=== PATIENT | female | born 1940 | race Caucasian/White ===

== ENCOUNTER → 2018-05-14 09:30 | Outpatient (CLI) | payer MEDICARE, OTHER, SELFPAY | PROVIDERS: PCP Family Medicine; Visit Provider Orthopaedic Surgery | DX: Z47.1 Aftercare following joint replacement surgery (principal); Z96.643 Presence of artificial hip joint, bilateral | CPT/HCPCS: 99213 ==

== ENCOUNTER → 2018-12-02 08:53 | Outpatient (BNVA) | payer MEDICARE, OTHER, SELFPAY | PROVIDERS: PCP Family Medicine; Referring Provider Family Medicine; Visit Provider Orthopaedic Surgery | DX: M16.0 Bilateral primary osteoarthritis of hip (principal); Z96.643 Presence of artificial hip joint, bilateral | CPT/HCPCS: 99213 ==

== ENCOUNTER 2020-02-23 02:40 | Outpatient (CLI) | payer MEDICARE, OTHER, SELFPAY ==
[2020-02-23 12:08] LABS: HCT 35.1 % (36.0-46.0); HGB 11.5 g/dL (12.0-15.5); Mean Corp. HGB Concentration 32.8 g/dL (32.0-36.0); Mean Corpuscular Hemoglobin 30.1 pg (27.0-33.0); Mean Corpuscular Volume 91.9 fL (80-95); Platelet Count 205 x1000/uL (130-400); RBC 3.82 m/cumm (4.00-5.20); RBC Distribution Width 13.3 % (11.7-14.6); White Blood Cell Count 5.02 k/cumm (4.4-10.8)
[2020-02-23 12:59] LABS: ALT 31 U/L (14-59); AST 26 U/L (15-37); Albumin 4.1 g/dL (3.4-5.0); Alkaline Phosphatase 45 U/L (46-116); Anion Gap 6.8 mmol/L (3-11); BUN 21 mg/dL (7-18); Bilirubin, Total 0.5 mg/dL (0.2-1.0); CO2 29.2 mmol/L (21.0-32.0); CREATININE 0.79 mg/dL (0.55-1.02); Calcium 9.2 mg/dL (8.5-10.1); Calculated LDL 68 mg/dL (<100); Chloride 103 mmol/L (98-107); Cholesterol 153 mg/dL (<200); Glucose 97 mg/dL (74-106); HDL Cholesterol 72 mg/dL (40-60); Potassium 4.7 mmol/L (3.5-5.1); Sodium 139 mmol/L (136-145); Total Protein 6.7 g/dL (6.4-8.2); Triglyceride 65 mg/dL (<150)
[2020-02-23 13:33] LABS: C-Reactive Protein 0.06 mg/dL (0.0-0.3); Creatine Kinase 294 U/L (26-192)
== END 2020-02-23 03:00 ==
PROVIDERS: PCP Family Medicine; Visit Provider Family Medicine
DX: E78.5 Hyperlipidemia, unspecified (principal); I20.1 Angina pectoris with documented spasm; M33.90 Dermatopolymyositis, unspecified, organ involvement unspecified
CPT/HCPCS: 36415; 80053; 80061; 82550; 85027; 86140

== ENCOUNTER 2020-05-05 01:42 | Outpatient (CLI) | payer MEDICARE, OTHER, SELFPAY ==
[2020-05-05 13:05] LABS: Bilirubin Negative (Negative); Blood Negative (Negative); Clarity Clear (Clear); Glucose Negative (Negative); Ketones Negative (Negative); Leukocyte Esterase Negative (Negative); Nitrite Negative (Negative); Specific Gravity 1.015 (1.005-1.025); Urobilinogen 0.2 EU/dL (Up TO 0.2); pH 6.5 (5-8)
== END 2020-05-05 02:02 ==
PROVIDERS: PCP Family Medicine; Visit Provider Internal Medicine
DX: Z79.899 Other long term (current) drug therapy (principal)
CPT/HCPCS: 81003

== ENCOUNTER 2020-06-27 04:26 | Outpatient (CLI) | payer MEDICARE, OTHER, SELFPAY ==
[2020-06-27 11:18] LABS: Absolute Basophil Count 0.02 10^3/uL (0.0-0.2); Absolute Eosinophil Count 0.08 10^3/uL (0.0-0.7); Absolute Lymphocyte Count 1.29 10^3/uL (1.2-3.4); Absolute Monocyte Count 0.36 10^3/uL (0.1-0.8); Absolute Neutrophil Count 2.35 10^3/uL (1.2-6.7); Basophils % 0.5; HCT 32.6 % (36.0-46.0); HGB 10.7 g/dL (11.2-15.7); Lymphocytes % 31.5; MCH 30.5 pg (27.0-33.0); MCHC 32.8 % (32.0-36.0); MCV 92.9 fL (80-95); MPV 11.3 fL (8.0-11.0); Monocytes % 8.8; Neutrophils % 57.2; Nucleated RBC 0 %; Platelet Count 188 10^3/uL (130-400); RBC 3.51 10^6/uL (3.93-5.22); RDW 13.2 % (11.7-14.6); RDW-SD 44.8 fL
[2020-06-27 12:30] LABS: ESR 29 mm/hr (0-30)
[2020-06-27 12:36] LABS: ALT 24 U/L (14-59); AST 22 U/L (15-37); Albumin 4.1 g/dL (3.4-5.0); Alkaline Phosphatase 39 U/L (46-116); Anion Gap 7.9 mmol/L (3-11); BUN 21 mg/dL (7-18); Bilirubin, Total 0.5 mg/dL (0.2-1.0); C-Reactive Protein 0.05 mg/dL (0.0-0.3); CO2 27.1 mmol/L (21.0-32.0); CREATININE 0.85 mg/dL (0.55-1.02); Calcium 9.3 mg/dL (8.5-10.1); Chloride 101 mmol/L (98-107); Creatine Kinase 226 U/L (26-192); Glucose 88 mg/dL (74-106); Potassium 5.2 mmol/L (3.5-5.1); Sodium 136 mmol/L (136-145); Total Protein 6.6 g/dL (6.4-8.2)
== END 2020-06-27 04:46 ==
PROVIDERS: PCP Family Medicine; Visit Provider Internal Medicine
DX: M33.90 Dermatopolymyositis, unspecified, organ involvement unspecified (principal); Z79.899 Other long term (current) drug therapy
CPT/HCPCS: 36415; 80053; 82550; 85652; 85025; 86140

== ENCOUNTER 2020-10-06 02:40 | Outpatient (CLI) | payer MEDICARE, OTHER, SELFPAY ==
[2020-10-06 11:06] LABS: Abs Immature Grans 0.01 10^3/uL (0.0-0.06); Absolute Basophil Count 0.02 10^3/uL (0.0-0.2); Absolute Eosinophil Count 0.08 10^3/uL (0.0-0.7); Absolute Lymphocyte Count 1.31 10^3/uL (1.2-3.4); Absolute Monocyte Count 0.37 10^3/uL (0.1-0.8); Absolute Neutrophil Count 2.54 10^3/uL (1.2-6.7); Basophils % 0.5; Eosinophils % 1.8; HCT 34.3 % (36.0-46.0); HGB 11.1 g/dL (11.2-15.7); Immature Grans % 0.2; Lymphocytes % 30.3; MCH 30.1 pg (27.0-33.0); MCHC 32.4 % (32.0-36.0); MPV 10.9 fL (8.0-11.0); Monocytes % 8.5; Neutrophils % 58.7; Nucleated RBC 0 %; Platelet Count 211 10^3/uL (130-400); RBC 3.69 10^6/uL (3.93-5.22); RDW 12.6 % (11.7-14.6); RDW-SD 42.6 fL; WBC 4.33 10^3/uL (4.4-10.8)
[2020-10-06 12:11] LABS: ESR 36 mm/hr (0-30)
[2020-10-06 12:18] LABS: ALT 29 U/L (14-59); AST 21 U/L (15-37); Albumin 4.1 g/dL (3.4-5.0); Alkaline Phosphatase 45 U/L (46-116); Anion Gap 6.7 mmol/L (3-11); BUN 29 mg/dL (7-18); Bilirubin, Total 0.5 mg/dL (0.2-1.0); C-Reactive Protein < 0.05 mg/dL (0.0-0.3); CO2 27.3 mmol/L (21.0-32.0); CREATININE 0.91 mg/dL (0.55-1.02); Calcium 8.9 mg/dL (8.5-10.1); Chloride 104 mmol/L (98-107); Creatine Kinase 263 U/L (26-192); Estimated GFR 59.79 (mL/min/1.73m2); Glucose 91 mg/dL (74-106); Potassium 4.8 mmol/L (3.5-5.1); Sodium 138 mmol/L (136-145); Total Protein 6.9 g/dL (6.4-8.2)
== END 2020-10-06 03:00 ==
PROVIDERS: PCP Family Medicine; Visit Provider Internal Medicine
DX: M33.90 Dermatopolymyositis, unspecified, organ involvement unspecified (principal); Z79.899 Other long term (current) drug therapy
CPT/HCPCS: 36415; 80053; 82550; 85652; 85025; 86140

== ENCOUNTER 2021-02-20 03:33 | Outpatient (CLI) | payer MEDICARE, OTHER, SELFPAY ==
[2021-02-20 14:25] LABS: Abs Immature Grans 0.01 10^3/uL (0.0-0.06); Absolute Basophil Count 0.03 10^3/uL (0.0-0.2); Absolute Lymphocyte Count 1.43 10^3/uL (1.2-3.4); Absolute Monocyte Count 0.35 10^3/uL (0.1-0.8); Basophils % 0.6; HCT 33.1 % (36.0-46.0); Immature Grans % 0.2; Lymphocytes % 27.9; MCH 30.4 pg (27.0-33.0); MCHC 33.2 % (32.0-36.0); MCV 91.4 fL (80-95); MPV 10.9 fL (8.0-11.0); Monocytes % 6.8; Neutrophils % 62.5; Nucleated RBC 0 %; Platelet Count 187 10^3/uL (130-400); RBC 3.62 10^6/uL (3.93-5.22); RDW 12.9 % (11.7-14.6); RDW-SD 42.9 fL; WBC 5.12 10^3/uL (4.4-10.8)
[2021-02-20 14:26] LABS: ESR 5 mm/hr (0-30)
[2021-02-20 16:11] LABS: ALT 44 U/L (14-59); AST 31 U/L (15-37); Alkaline Phosphatase 42 U/L (46-116); Anion Gap 7.1 mmol/L (3-11); BUN 21 mg/dL (7-18); Bilirubin, Total 0.6 mg/dL (0.2-1.0); C-Reactive Protein 0.06 mg/dL (0.0-0.3); CO2 30.9 mmol/L (21.0-32.0); CREATININE 0.9 mg/dL (0.55-1.02); Calcium 9.5 mg/dL (8.5-10.1); Chloride 106 mmol/L (98-107); Creatine Kinase 330 U/L (26-192); Glucose 107 mg/dL (74-106); Potassium 4.5 mmol/L (3.5-5.1); Sodium 144 mmol/L (136-145); Total Protein 6.8 g/dL (6.4-8.2)
== END 2021-02-20 03:34 | disposition home or self-care (01) ==
PROVIDERS: PCP Family Medicine; Visit Provider Internal Medicine
DX: M33.90 Dermatopolymyositis, unspecified, organ involvement unspecified (principal); Z79.899 Other long term (current) drug therapy
CPT/HCPCS: 36415; 80053; 82550; 85652; 85025; 86140

== ENCOUNTER 2021-03-30 01:40 | Outpatient (CLI) | payer MEDICARE, OTHER, SELFPAY ==
[2021-03-30 10:36] LABS: Reticulocyte 1.4 % (0.5-2.4)
[2021-03-30 11:49] LABS: Iron 48 ug/dL (50-170); Total Iron Binding Capacity 312 ug/dL (250-450); Transferrin Sat 15 % (15-50)
[2021-03-30 12:15] LABS: Vitamin B12 408 pg/mL (193-986)
== END 2021-03-30 01:41 | disposition home or self-care (01) ==
LOC: LBO 01:40
PROVIDERS: PCP Family Medicine; Visit Provider Internal Medicine
DX: D50.8 Other iron deficiency anemias (principal); Z79.899 Other long term (current) drug therapy
CPT/HCPCS: 36415; 82607; 83540; 83550; 85045

== ENCOUNTER 2021-05-24 03:50 | Outpatient (CLI) | payer MEDICARE, OTHER, SELFPAY ==
[2021-05-24 10:42] LABS: Abs Immature Grans 0.01 10^3/uL (0.0-0.06); Absolute Basophil Count 0.02 10^3/uL (0.0-0.2); Absolute Eosinophil Count 0.11 10^3/uL (0.0-0.7); Absolute Lymphocyte Count 1.16 10^3/uL (1.2-3.4); Absolute Monocyte Count 0.43 10^3/uL (0.1-0.8); Absolute Neutrophil Count 2.82 10^3/uL (1.2-6.7); Basophils % 0.4; ESR 8 mm/hr (0-30); Eosinophils % 2.4; HCT 35.5 % (36.0-46.0); HGB 11.4 g/dL (11.2-15.7); Immature Grans % 0.2; Lymphocytes % 25.5; MCH 29.3 pg (27.0-33.0); MCHC 32.1 % (32.0-36.0); MCV 91.3 fL (80-95); MPV 10.5 fL (8.0-11.0); Monocytes % 9.5; Nucleated RBC 0 %; Platelet Count 213 10^3/uL (130-400); RBC 3.89 10^6/uL (3.93-5.22); RDW 13.1 % (11.7-14.6); RDW-SD 42.8 fL; WBC 4.55 10^3/uL (4.4-10.8)
[2021-05-24 11:59] LABS: ALT 31 U/L (14-59); AST 23 U/L (15-37); Albumin 4.1 g/dL (3.4-5.0); Alkaline Phosphatase 46 U/L (46-116); BUN 24 mg/dL (7-18); Bilirubin, Total 0.5 mg/dL (0.2-1.0); CREATININE 0.8 mg/dL (0.55-1.02); Calcium 9.5 mg/dL (8.5-10.1); Chloride 103 mmol/L (98-107); Creatine Kinase 226 U/L (26-192); Glucose 102 mg/dL (74-106); Potassium 4.6 mmol/L (3.5-5.1); Sodium 139 mmol/L (136-145); Total Protein 6.9 g/dL (6.4-8.2)
[2021-05-24 12:10] LABS: C-Reactive Protein < 0.05 mg/dL (0.0-0.3)
== END 2021-05-24 03:51 | disposition home or self-care (01) ==
LOC: LBO 03:50
PROVIDERS: PCP Family Medicine; Visit Provider Internal Medicine
DX: M33.90 Dermatopolymyositis, unspecified, organ involvement unspecified (principal); Z79.899 Other long term (current) drug therapy
CPT/HCPCS: 36415; 80053; 82550; 85652; 85025; 86140

== ENCOUNTER 2021-07-12 17:48 | Outpatient (REF) | payer MEDICARE, OTHER, SELFPAY ==
[2021-07-12 21:17] LABS: Anion Gap 5.4 mmol/L (3-11); BUN 18 mg/dL (7-18); CO2 30.6 mmol/L (21.0-32.0); CREATININE 0.8 mg/dL (0.55-1.02); Calcium 9.1 mg/dL (8.5-10.1); Chloride 106 mmol/L (98-107); Glucose 110 mg/dL (74-106); Potassium 4.4 mmol/L (3.5-5.1); Sodium 142 mmol/L (136-145)
== END 2021-07-12 17:49 | disposition home or self-care (01) ==
LOC: LBN 17:48
PROVIDERS: PCP Family Medicine; Visit Provider Physician Assistant
DX: I10 Essential (primary) hypertension (principal); M10.9 Gout, unspecified
CPT/HCPCS: 80048; 84550

== ENCOUNTER 2021-10-26 04:29 | Outpatient (CLI) | payer MEDICARE, SELFPAY ==
[2021-10-26 12:56] LABS: Abs Immature Grans 0.01 10^3/uL (0.0-0.06); Absolute Basophil Count 0.02 10^3/uL (0.0-0.2); Absolute Eosinophil Count 0.11 10^3/uL (0.0-0.7); Absolute Monocyte Count 0.45 10^3/uL (0.1-0.8); Absolute Neutrophil Count 3.28 10^3/uL (1.2-6.7); Basophils % 0.4; HCT 35.7 % (36.0-46.0); HGB 11.5 g/dL (11.2-15.7); Immature Grans % 0.2; Lymphocytes % 29.3; MCH 29.9 pg (27.0-33.0); MCHC 32.2 % (32.0-36.0); MPV 11.1 fL (8.0-11.0); Monocytes % 8.2; Neutrophils % 59.9; Nucleated RBC 0 %; Platelet Count 225 10^3/uL (130-400); RBC 3.84 10^6/uL (3.93-5.22); RDW 13.1 % (11.7-14.6); RDW-SD 44.2 fL; WBC 5.47 10^3/uL (4.4-10.8)
[2021-10-26 13:00] LABS: ESR 6 mm/hr (0-30)
[2021-10-26 13:51] LABS: ALT 29 U/L (14-59); AST 25 U/L (15-37); Albumin 4.2 g/dL (3.4-5.0); Alkaline Phosphatase 47 U/L (46-116); Anion Gap 7.3 mmol/L (3-11); BUN 22 mg/dL (7-18); Bilirubin, Total 0.4 mg/dL (0.2-1.0); C-Reactive Protein 0.06 mg/dL (0.0-0.3); CO2 29.7 mmol/L (21.0-32.0); CREATININE 0.7 mg/dL (0.55-1.02); Calcium 9.1 mg/dL (8.5-10.1); Chloride 104 mmol/L (98-107); Creatine Kinase 222 U/L (26-192); Glucose 104 mg/dL (74-106); Potassium 4.3 mmol/L (3.5-5.1); Sodium 141 mmol/L (136-145)
== END 2021-10-26 04:30 | disposition home or self-care (01) ==
PROVIDERS: PCP Family Medicine; Visit Provider Internal Medicine
DX: D50.8 Other iron deficiency anemias (principal); R06.09 Other forms of dyspnea; R06.02 Shortness of breath; Z92.241 Personal history of systemic steroid therapy; Z79.899 Other long term (current) drug therapy; I25.10 Atherosclerotic heart disease of native coronary artery without angina pectoris
CPT/HCPCS: 36415; 80053; 82550; 85652; 85025; 86140

== ENCOUNTER 2022-01-30 01:13 | Outpatient (CLI) | payer MEDICARE, SELFPAY ==
[2022-01-30 12:31] LABS: Absolute Basophil Count 0.03 10^3/uL (0.0-0.2); Absolute Eosinophil Count 0.08 10^3/uL (0.0-0.7); Absolute Lymphocyte Count 1.15 10^3/uL (1.2-3.4); Absolute Monocyte Count 0.42 10^3/uL (0.1-0.8); Absolute Neutrophil Count 2.63 10^3/uL (1.2-6.7); Basophils % 0.7; Eosinophils % 1.9; HCT 33.5 % (36.0-46.0); HGB 10.8 g/dL (11.2-15.7); Lymphocytes % 26.7; MCH 30.1 pg (27.0-33.0); MCHC 32.2 % (32.0-36.0); MCV 93 fL (80-95); MPV 11.9 fL (8.0-11.0); Monocytes % 9.7; Platelet Count 198 10^3/uL (130-400); RBC 3.59 10^6/uL (3.93-5.22); RDW-SD 43.6 fL; WBC 4.31 10^3/uL (4.4-10.8)
[2022-01-30 12:34] LABS: ESR 5 mm/hr (0-30)
[2022-01-30 12:51] LABS: ALT 27 U/L (14-59); AST 21 U/L (15-37); Albumin 4.2 g/dL (3.4-5.0); Alkaline Phosphatase 52 U/L (46-116); Anion Gap 7.1 mmol/L (3-11); BUN 24 mg/dL (7-18); Bilirubin, Total 0.5 mg/dL (0.2-1.0); CO2 29.9 mmol/L (21.0-32.0); CREATININE 0.8 mg/dL (0.55-1.02); Chloride 105 mmol/L (98-107); Glucose 111 mg/dL (74-106); Potassium 4.9 mmol/L (3.5-5.1); Sodium 142 mmol/L (136-145); Total Protein 6.7 g/dL (6.4-8.2)
[2022-01-30 12:56] LABS: C-Reactive Protein < 0.05 mg/dL (0.0-0.3)
== END 2022-01-30 01:14 | disposition home or self-care (01) ==
LOC: LOS 01:13
PROVIDERS: PCP Family Medicine; Visit Provider Internal Medicine
DX: M33.90 Dermatopolymyositis, unspecified, organ involvement unspecified (principal); Z79.899 Other long term (current) drug therapy
CPT/HCPCS: 36415; 80053; 85652; 85025; 86140

== ENCOUNTER 2022-06-07 01:13 | Outpatient (CLI) | payer MEDICARE, SELFPAY ==
--- OUTSIDE RECORDS SUMMARY | 2022-06-07 01:15 | XMS_ITS | Encounter Summary ---
:1940 Author Organization [facility] [place] [address] Care Team Providers Name Role Phone Mir Mancini MD Primary Care Provider [phone] Encounter Details Date Type Department Care Team Description 03/21/2021 [place] [facility] [place] [facility] High risk medication use; Nay KWONG (dyspnea on exertion) [place] [address] Social History Tobacco Use Types Packs/Day Years Used Date Never Smoker Smokeless Tobacco: Never Used Sex Assigned at Date Recorded Not on file documented as of this encounter Medications at Time of Discharge Medication Sig Dispensed Refills Start Date End Date omeprazole (PRILOSEC) 20 Take 1 capsule by 90 capsule 3 03/2020 mg Capsule, Delayed mouth daily. Release(E.C.) losartan (COZAAR) 100 mg daily. 0 01/22/[address] 1 tablet under 0 02/18/2019 (NITROSTAT) 0.4 mg the tongue if needed Tablet, Sublingual every 5 minutes for abel... (REFER TO PRESCRIPTION NOTES). metoprolol succinate 50 mg daily. 0 02/13/2019 (TOPROL-XL) 100 mg Tablet Sustained Release 24 hr aspirin 81 mg Tablet, Take 81 mg by mouth 0 Delayed Release (E.C.) daily. magnesium 250 mg Tablet Take by mouth daily. 0 cholecalciferol, Vitamin Take by mouth daily. 0 D3, 1,000 unit Capsule [place]-3 Fatty Take 2,000 mg by 0 Acids-Vitamin E (FISH mouth daily. OIL) 1,000 mg Cap amlodipine (NORVASC) 5 Take 1 tablet by 30 tablet 3 011 mg tablet mouth daily. pravastatin (PRAVACHOL) 40mg, PO, QPM 0 6 40 mg tablet Psyllium Seed-Sucrose 0 12/26/2004 (METAMUCIL) Powd metHOTREXate 2.5 mg Take 4 tablets by 48 tablet 1 1 07/31/2021 Tablet mouth once a week. folic acid (Folvite) 1 Take 1 tablet by 90 tablet 3 021 05/30/2021 mg Tablet mouth daily. hydrOXYchloroQUINE Take 1 tablet by 90 tablet 3 11/07/2020 10/19/2021 (Plaquenil) 200 mg mouth daily. TabletIndications: Indications: Dermatomyositis Dermatomyositis spironolactone 0 02/17/2020 08/20/2021 (Aldactone) 25 mg Tablet documented as of this encounter Plan of Treatment Upcoming Encounters Date Type Specialty Care Team Description 06/18/2022 Office Visit Rheumatology Cheryle Dai MD [facility] ER [address] RHEUMATOLOGY [place], [place] [address] (Wo rk) documented as of this encounter Procedures Procedure Name Priority Date/Time Associated Diagnosis Comme nts PULMONARY FUNCTION Routine 03/21/2021 11:55 AM Dermatomy ositis Results for this TEST EDT High risk medication procedu re are in use the results KWONG (dyspnea on section. exertion) documented in this encounter Results Pulmonary Function Testing (03/21/2021 11:55 AM EDT) P athologist Signature FVC Actual 1.45 L [facility] PFT Pre-BD FVC Pre-BD % of 70 % [facility] PFT Predicted FVC Predicted 2.07 L [facility]AS PFT FVC Pre-BD -1.67 [facility]AS PFT Z-Score FVC Lower 1.46 L [facility]AS PFT Limits of Normal FEV1 Actual 1.07 L [facility]AS PFT Pre-BD FEV1 Pre-BD % 67 % [facility]AS PFT of Predicted FEV1 Predicted 1.60 L [facility]AS PFT FEV1 Pre-BD -1.83 [facility]AS PFT Z-Score FEV1 Lower 1.12 L [facility]AS PFT Limits of Normal FEV1 / FVC 74 % [facility] PFT Actual Pre-BD FEV1/FVC Pre-BD -0.48 [facility]AS PFT Z-Score FEV1 / FVC LLN 63 % [facility]AS PFT [id number] Actual 0.68 L/s COMPAS PFT Pre-BD [id number] Pre-BD 49 % [facility]AS PFT % of Predicted [id number] 1.38 L/s COMPAS PFT Predicted [id number] Pre-BD -1.39 COMPAS PFT Z-Score DLCO Hb Actual 9.52 mL/min/mmHg [facility]AS PFT Pre-BD DLCO Hb Pre-BD 62 % [facility]AS PFT % of Predicted DLCO Hb Pre-BD -2.72 COMPAS PFT Z-Score DLCO Hb 15.29 mL/min/mmHg COMPAS PFT Predicted DLCO UNC ACT 9.52 mL/min/mmHg COMPAS PFT PRE-BD DLCO UNC PRE-BD 62 % [facility]AS PFT % of PRED DLCO UNC PRE-BD -2.72 % [facility]AS PFT Z-SCORE DLCO UNC 15.29 mL/min/mmHg COMPAS PFT Predicted DLCO/VA Actual 3.03 mL/min/mmHg COMPAS PFT Pre-BD /L DLCO/VA Pre-BD 70 % [facility]AS PFT % of Predicted DLCO/VA Pre-BD -2.04 COMPAS PFT Z-Score DLCO/VA 4.30 mL/min/mmHg COMPAS PFT Predicted /L FRC Pre-BD % of 84 % [facility]AS PFT Predicted FRC Pre-BD -0.74 % [facility]AS PFT Z-Score FRC Actual 2.01 L [facility]AS PFT Pre-BD FRC Predicted 2.38 L COMPAS PFT TLC Actual 3.67 L [facility]AS PFT Pre-BD TLC Pre-BD % of 93 % [facility]AS PFT Predicted TLC Pre-BD -0.47 [facility]AS PFT Z-Score TLC Predicted 3.95 L [facility]AS PFT RV Actual 1.94 L [facility]AS PFT Pre-BD RV Pre-BD % of 101 % [facility]AS PFT Predicted RV Pre-BD 0.03 [facility]AS PFT Z-Score RV Predicted 1.93 L [facility]AS PFT RVoTLC Actual 53 % [facility]AS PFT Pre-BD RVoTLC Pre-BD % 115 % [facility] PFT of Predicted RVoTLC Pre-BD 1.20 [facility]AS PFT Z-Score RVoTLC 46 % [facility] PFT Predicted VC Actual 1.73 L [facility] PFT Pre-BD VC Pre-BD % of 84 % [facility] PFT Predicted VC Pre-BD -0.89 [facility] PFT Z-Score VC Predicted 2.07 L [facility]AS PFT Specimen (Source) Anatomical Location Collection Method / Collectio n Time Received Time / Laterality Volume Narrative [facility]AS PFT - 03/21/2021 11:55 AM EDT FINDINGS: FEV1 and FVC are reduced, FEV1/VC is normal. The SVC is larger than the FVC and was used to calculate FEV1/VC. TLC is normal and RV/TLC is increased. Diffusion capacity not adjusted for hemoglobin is reduced. Rest ing oxygen saturation is normal.IMPRESSION: Spirometry suggests restriction. Lung volumes indic ate normal total lung capacity, but there is evidence of air trapping, which accounts for the reduced FVC. Mild reduction in diffusing capacity (DLCO > 60% and < lower limit of normal). Iso lated reduced DLCO suggests the possibility of disease of the pulmonary vasculature, early emph ysema, early interstitial disease, anemia, or carboxyhemoglobinemia/heavy tobacco smok ing. Procedure Note Unknown - 03/21/2021Formatting of this n ote might be different from the original. FINDINGS: FEV1 and FVC are reduced, FEV1 /VC is normal. The SVC is larger than the FVC and was used to calculate FEV1/VC. TLC is normal and RV/TLC is increased. Diffusion capacity not adjusted for hemoglobin is reduced. Rest ing oxygen saturation is normal.IMPRESSION: Spirometry suggests restriction. Lung volumes indic ate normal total lung capacity, but there is evidence of air trapping, which accounts for the reduced FVC. Mild reduction in diffusing capacity (DLCO > 60% and < lower limit of normal). Iso lated reduced DLCO suggests the possibility of disease of the pulmonary vasculature, early emph ysema, early interstitial disease, anemia, or carboxyhemoglobinemia/heavy tobacco smok ing. Cheryle Dai MD PFT ORDERABLES Performing Organization Address City/State/ZIP Code Phon e Number [facility] PFT documented in this encounter Visit Diagnoses Diagnosis Dermatomyositis High risk medication use Encounter for long-term (current) use of other medications KWONG (dyspnea on exertion) Other dyspnea and respiratory abnormalit y documented in this encounter Care Teams Boot Repairer Relationship Specialty Start Date End Date Mir Mancini MD PCP - General Family Medicine 05/25/[address] [place] [address] documented as of this encounter
--- OUTSIDE RECORDS SUMMARY | 2022-06-07 01:15 | XMS_ITS | Encounter Summary ---
:1940 Author Organization [facility] [place] [address] Care Team Providers Name Role Phone Mir Mancini MD Primary Care Provider [phone] Encounter Details Date Type Department Care Team Description 03/06/2021 [facility] [place] [address] Social History Tobacco Use Types Packs/Day Years Used Date Never Smoker Smokeless Tobacco: Never Used Sex Assigned at Date Recorded Not on file documented as of this encounter Plan of Treatment Upcoming Encounters Date Type Specialty Care Team Description 06/18/2022 Office Visit Rheumatology Cheryle Dai MD [facility] RHEUMATOLOGY [place], [place] [address] (Wo rk) documented as of this encounter Visit Diagnoses Not on filedocumented in this encounter Care Teams Seam Taper Machine Relationship Specialty Start Date End Date Mir Mancini MD PCP - General Family Medicine 05/25/[address] [place] [address] documented as of this encounter
--- OUTSIDE RECORDS SUMMARY | 2022-06-07 01:15 | XMS_ITS | Encounter Summary ---
:1940 [place] [address] Care Team Providers Name Role Phone Mir Mancini MD Primary Care Provider [phone] Encounter Details Date Type Department Care Team Description 08/21/2021 Telephone Therapeutic [place] [address] Social History Tobacco Use Types Packs/Day Years Used Date Never Smoker Smokeless Tobacco: Never Used Sex Assigned at Date Recorded Not on file documented as of this encounter Miscellaneous Notes Telephone Encounter - Kelsy Syed, DIRECTOR OF OCCUPATIONAL HEALTH - 08/21/2021 11:15 AM EST SCHEDULED CATHETERIZATION PROCEDURES Date: 08/21/2021 Scheduled With: Patient Referring MD: Dr. Giraldo Diagnosis: SOB Procedure Requested: LHC/RHC Scheduled Date: 09/04/2021 Performing MD: Dr. Nichols Arrival Time: 10a Procedure Time: 11a Blood Thinners? N If so, what? (If not specified, hold Coumadin/Warfarin 4 days, Eliquis and Xarelto 2 days) Diabetic? N If so, how is it managed? (Hold Metformin/Glucophage morning of) Iodine or IV Contrast Allergy? N Labs Completed? N In System or Scanned? If not, where/when will they be done? [facility] Orders Faxed? Yes [phone] Other Pertinent Information: Patient will be going next week for labs Patient is aware that our nursing staff from the [facility] will reach out to them the day prior to the procedure and review their eating and drinking instructions as well as their medication instructions. They have also been made aware that they will need a patient transportation driver for this and to arrive at location [address]. documented in this encounter Plan of Treatment Upcoming Encounters Date Type Specialty Care Team Description 06/18/2022 Office Visit Rheumatology Cheryle Dai MD [facility] DR RHEUMATOLOGY [place], [place] [address] (Wo rk) documented as of this encounter Visit Diagnoses Not on filedocumented in this encounter Care Teams Salesperson Furs Relationship Specialty Start Date End Date Mir Mancini MD PCP - General Family Medicine 05/25/[address] [place] [address] documented as of this encounter
--- OUTSIDE RECORDS SUMMARY | 2022-06-07 01:15 | XMS_ITS | Encounter Summary ---
:1940 Author Organization [facility] [place] [address] Care Team Providers Name Role Phone Mir Mancini MD Primary Care Provider [phone] Reason for Referral Diagnostic Test (Routine) - Closed Specialty Diagnoses / Procedures Referred By Contact Refer red To Contact Radiology Diagnoses Dermatomyositis High risk medication use KWONG (dyspnea on exertion) Cheryle Dai MD [facility] Rad Ct Scan Procedures CT Chest wo Contrast (Generic) [facility] [place] [address] [place] [address] Referral ID Status Reason Start Date Expiration Date Visits V isits Requested Authorized [id number] Closed Specialty 02/28/2021 08/30/2022 1 1 Service Requested Encounter Details Date Type Department Care Team Description 02/28/2021 Office Visit Rheumatology at [facility] Cheryle Dai Dermatomyositis; [facility] MD [place] High risk medication use; [facility] KWONG (dyspnea on exertion) [place] [address] CENTER [phone] RHEUMATOLOGY DEPT. [place], [place] [address] Social History Tobacco Use Types Packs/Day Years Used Date Never Smoker Smokeless Tobacco: Never Used Sex Assigned at Date Recorded Not on file documented as of this encounter Last Filed Vital Signs Vital Sign Reading Time Taken Comments Blood Pressure 156/43 02/28/2021 12:12 PM EDT Pulse 54 02/28/2021 12:12 PM EDT Temperature - - Respiratory Rate - - Oxygen Saturation 100% 02/28/2021 12:12 PM EDT Inhaled Oxygen Concentration - - Weight 83 kg (183 lb) 02/28/2021 12:12 PM EDT Height 149.9 cm (4' 11) 02/28/2021 12:12 PM EDT Body Mass Index 36.96 02/28/2021 12:12 PM EDT documented in this encounter Progress Notes Cheryle Dai MD - 02/28/2021 11:30 AM EDT Former pt of Shelly Alcaraz followed for dermatomyositis Cc: doing pretty well HPI: SOB with exertion, has not had PFTs and CT. Some muscle aches more in her deltoids B. She had to stop a medication as it was giving her some myalgias (sprionalactone). She feels her pressures are different. NO rashes. 7.5mg of MTX. Her CK was up to 330. (has not been over 300 before). Past: She is doing ok. She has occ pains in her arms and her hands have some arthritis but she thinks it is under control. She took her BP and it is 132/74 and HR 54. She is taking a new medication spironolactone. This is for BP. Normal CRP and Labs done 3 days ago reviewed. No dark urine or fevers. She has standing orders. She has a had time with exercising or moving--she cannot get her breath. No CP. No cough. Her CK is 226 (was 296 in the spring) She walks everyday for about a mile. Her main problem flares--feels worse in the biceps. Burning in the biceps. NO rash on her knuckles--some itching on the tops of her hands with itching and scaling. NO unusual weight loss. Her has dementia-requires 24 hour care at this point. Past: She has occ muscle pain in her deltoids. No weakness. She has arthritis in her hands. She has difficulty getting up off the ground while she is gardening. This has not gotten worse. She has started walking at least 30 minutes. She had to give up her wellness. She is walking a mile twice a day. She would like to get 10,000 in a day but gets 8-9. No dark urine. She has a little bit of gas in her bowels. She has a little soreness in her belly in the am. She gets some burning in her bladder or bowels in the am. No blood in her stools, no hematuria. She decreased HCQ to 200mg a day and feels this has improved the bowels somewhat. She takes methotrexate 7.5mg weekly without ulcers, has some dry mouth, no hair loss. No infections. No fevers. She has KWONG when she is walking on an incline. Rate related. No CP. Her BPhas improved after addition of a new medication. It feels like the medication has zapped her energy and this is hitting her in the middle of the day. She had a stress test several years ago. She sometimes has difficulty catching her breath. past: She has some quad pain and stiffness in the morning. She has no actual chest pain, but with a flight of stairs she is winded. She exercises 3 times a week at the gym. She notices that walking is harder than the treadmill. She has not spoken to her PCP abut cardiac testing. She gets some neck pressure. Her BP still demonstrates a wide pulse pressure. She is almost out of MTX. Overall things are about the same. No oral ulcers. Her hair has thinned. No infections. She has some burning in her lower intestines, she gets some gas worse with HCQ. She needs the omeprazole to reduce stomach pain, she tries to take it every other day. No urinary symptoms. She has an eye exam in July. Past: She has some morning stiffness. She gets some gnawing pain in big muscles in her arms that radiates into her traps and upper back. She was dx'd with dermatolyosiit rx'd with steroids around age 52. Over the last 2-3 years she has had an increase in pain. 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 Possibility that she had a rash--not clear. She did have a rash across her knuckles when she was first diagnosed. Her ESR was 44 in 04/2018, then to 08/2018 23, CK went [id number] over the same time (inverse relationship). She noted weakness when initially diagnose, less prominent during this increased episode. In addition to the HCQ and MTX she has been on prednisone as well over the past 2 years--but this was tapered off. No prednisone for months. She has not had a DEXA in sometime. Muscle strengthening at the gym. No SOB or fevers. She has KWONG with hills and stairs. She is concerned that this could be an anginalequivalent. She also has high BP. Does not get CP. She gets some tightness in her throat. She has not had an exercise stress test.She is not sure if her symptoms are cardiac or related to stomach problems. She wa sabe to work out at the gym without difficulty. No ulcers in her mouth. No Hair loss. No RAynaud's--they are sometimes white. NO dark urine. NO fevers or infections. She endorses carpal tunnel symptoms. 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 BP 156/43 Pulse 54 Ht 149.9 cm (4' 11) Wt 83 kg (183 lb) SpO2 100% BMI 36.96 kg/m?? She looks well, strength is normal. Lungs clear No rashes Labs/studies: Reviewed increased to 330 (higher than usual) Impression/Recommendations: Chronic disease with flare New onset KWONG High risk medication monitoring. This very pleasant 80-year-old woman from Dr. Shelly Alcaraz). 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 She also has a history of some modestly elevated CKs--180 at last check--up to 226 in 10/06/20 (down from 290). She is primarily treated with prednisone in the past, and is on hydroxychloroquine and methotrexate 7.5mg currently. She is tolerating both these medications without significant side effects and actually feels better since the addition of the hydroxychloroquine. She has more KWONG, will check PFTs and CT. To eval for institial lung disease. Will increase MTX to 10mg weekly. #Methotrexate 7.5 mg weekly--increase to 10mg weekly for increased CK #Folic acid 1 mg daily #Hydroxychloroquine-200mg daily for GI sx-annual eye exam #DEXA completed 06/2019--T-0.7 in normal range, vitamin D 2000 IU and calcium 1200mg through diet # continue with exercise, let me know if worsening weakness. documented in this encounter Plan of Treatment Upcoming Encounters Date Type Specialty Care Team Description 06/18/2022 Office Visit Rheumatology Cheryle Dai MD [facility] RHEUMATOLOGY DEP [place], [place] [address] (Wo rk) documented as of this encounter Results CT Chest wo Contrast (Generic) (03/21/2021 3:06 PM EDT) Anatomical Region Laterality Modality Chest Computed Tomography Specimen (Source) Anatomical Collection Method Collection Time Re ceived Time Location / / Volume Laterality 03/21/2021 3:22 PM EDT Impressions 03/21/2021 3:41 PM EDT 1. ??No CT evidence of interstitial lung disease. 2. ??No noncontrast CT evidence of acute inflammatory process within the thorax. 3. ??Moderate cardiomegaly. ??Asymmetric biatrial enlargement. 4. ??Hypoattenuation of the intraventric ular contents as compared to the myocardium, which can be seen in anemia. ??Correlation with hemoglobin and hematocrit is recommended. Thank you for letting us participate in the care of this patient. ??If you are a health care provider and have any questi ons regarding this report, please contact the number below. ??For patients who have questions please contact the health care taker that requested your imaging first. ? Electronically signed by: Maurice Harvey DO, [facility] ([phone]), at 03/21/2021 3:41 PM Narrative 03/21/2021 3:41 PM EDT EXAMINATION: CT CHEST WO CONTRAST (GENERIC) CLINICAL HISTORY: 80-year-old female wit h shortness of breath. TECHNIQUE: 3.75 mm thick axial contiguou s sections were obtained through the chest via helical acquisition without in travenous contrast administration. ??The department high resolution protocol was utilized with supine inspiratory and expiratory imaging as well as prone imag ing. ??Thin-section reconstructions as well as coronal and sagittal reformatted images were generated. COMPARISON: There is no similar prior ex amination provided for comparison. FINDINGS: Limitations: Lack of intravenous contras t limits evaluation of the visceral organs, mediastinum, and vascular struct ures. Assistant Health Educator Images: Noncontributory. Pulmonary parenchyma: There is no focal pulmonary nodule or opacity. ??There is no evidence of fibrotic lung disease. ?? There is no honeycombing, reticulation, subpleural pulmonary parenchymal scarrin g, bronchiectasis. ??There is no dominant cystic lung disease or pulmonary parench ymal nodular disease. Airways: The central airways are patent. ??There is no endobronchial lesion. Pleura: There is no pleural effusion or pneumothorax. Lymph nodes: There are no pathologically enlarged lymph nodes. Heart, pericardium, and great vessels: T here is moderate four-chamber cardiac enlargement. ??There is somewhat asymmet meghana enlargement of the bilateral atria. There is hypoattenuation of the intraven tricular contents as compared to the myocardium. ??There is confluent atheros clerotic calcification of the coronary arteries. ??There is physiologic pericar dial fluid. ??The unenhanced aorta is normal in course. ??There is mild athero sclerotic calcification of the aortic arch extending into the great vessels. ? ?Visualized aspects of the great vessels are normal in course. ??The unenhanced p ulmonary arteries are normal in course. Other mediastinal structures: The medias tinal fat is preserved. ??Limited evaluation of the esophagus is unremarka ble. Lower neck: Visualized structures within the inferior neck are unremarkable. Upper abdomen: There is been prior milly cystectomy with surgical clips within the gallbladder fossa. ??There is focal cortical thinning with calcification scarring within the lower pole of the le ft kidney, partially visualized. Body wall soft tissues: Normal Skeletal structures: There are no suspic ious osseous lesions. ??There are degenerative changes of the visualized s pine with endplate sclerosis and osteophyte formation. Procedure Note Maurice Harvey, DO - 03/21/2021Formatti ng of this note might be different from the original. EXAMINATION: CT CHEST WO CONTRAST (GENER IC) CLINICAL HISTORY: 80-year-old female wit h shortness of breath. TECHNIQUE: 3.75 mm thick axial contiguou s sections were obtained through the chest via helical acquisition without in travenous contrast administration. The department high resolution protocol was utilized with supine inspiratory and expiratory imaging as well as prone imag ing. Thin-section reconstructions as well as coronal and sagittal reformatted images were generated. COMPARISON: There is no similar prior ex amination provided for comparison. FINDINGS: Limitations: Lack of intravenous contras t limits evaluation of the visceral organs, mediastinum, and vascular struct ures. Assistant Health Educator Images: Noncontributory. Pulmonary parenchyma: There is no focal pulmonary nodule or opacity. There is no evidence of fibrotic lung disease. Th ere is no honeycombing, reticulation, subpleural pulmonary parenchymal scarrin g, bronchiectasis. There is no dominant cystic lung disease or pulmonary parench ymal nodular disease. Airways: The central airways are patent. There is no endobronchial lesion. Pleura: There is no pleural effusion or pneumothorax. Lymph nodes: There are no pathologically enlarged lymph nodes. Heart, pericardium, and great vessels: T here is moderate four-chamber cardiac enlargement. There is somewhat asymmetri c enlargement of the bilateral atria. There is hypoattenuation of the intraven tricular contents as compared to the myocardium. There is confluent atheroscl erotic calcification of the coronary arteries. There is physiologic pericardi al fluid. The unenhanced aorta is normal in course. There is mild atherosc lerotic calcification of the aortic arch extending into the great vessels. V isualized aspects of the great vessels are normal in course. The unenhanced pul monary arteries are normal in course. Other mediastinal structures: The medias tinal fat is preserved. Limited evaluation of the esophagus is unremarka ble. Lower neck: Visualized structures within the inferior neck are unremarkable. Upper abdomen: There is been prior milly cystectomy with surgical clips within the gallbladder fossa. There is focal co rtical thinning with calcification scarring within the lower pole of the le ft kidney, partially visualized. Body wall soft tissues: Normal Skeletal structures: There are no suspic ious osseous lesions. There are degenerative changes of the visualized s pine with endplate sclerosis and osteophyte formation. IMPRESSION 1. No CT evidence of interstitial lung d isease. 2. No noncontrast CT evidence of acute i nflammatory process within the thorax. 3. Moderate cardiomegaly. Asymmetric jeremiah trial enlargement. 4. Hypoattenuation of the intraventricul ar contents as compared to the myocardium, which can be seen in anemia. Correlation with hemoglobin and hematocrit is recommended. Thank you for letting us participate in the care of this patient. If you are a health care provider and have any questi ons regarding this report, please contact the number below. For patients w ho have questions please contact the health care taker that requested your imaging first. Electronically signed by: Maurice Harvey DO, [facility] ([phone]), at 03/21/2021 3:41 PM Cheryle Dai MD IMG CT ORDERABLES Pulmonary Function Testing (03/21/2021 11:55 AM EDT) [...] / FVC LLN 63 % COMPAS PFT [id number] Actual 0.68 L/s COMPAS PFT Pre-BD [id number] Pre-BD 49 % COMPAS PFT % of Predicted [id number] 1.38 L/s COMPAS PFT Predicted [id number] Pre-BD -1.39 COMPAS PFT Z-Score DLCO Hb [...] exertion) Other dyspnea and respiratory abnormalit y Dermatomyositis High risk medication use Encounter for long-term (current) use of other medications KWONG (dyspnea on exertion) Other dyspnea and respiratory abnormalit y Dermatomyositis High risk medication use Encounter for long-term (current) use of other medications KWONG (dyspnea on exertion) Other dyspnea and respiratory abnormalit y documented in this encounter Care Teams Dairy Products Maker Relationship Specialty Start Date End Date Mir Mancini MD PCP - General Family Medicine 05/25/[address] [place] [address] documented as of this encounter
--- OUTSIDE RECORDS SUMMARY | 2022-06-07 01:15 | XMS_ITS | Encounter Summary ---
:1940 Author Organization [facility] [place] [address] Care Team Providers Name Role Phone Mir Mancini MD Primary Care Provider [phone] Reason for Referral Diagnostic Test (Routine) - Closed Specialty Diagnoses / Procedures Referred By Contact Refer red To Contact Cardiology Diagnoses Other iron deficiency anemia SOB (shortness of breath) Cheryle Dai MD [facility] Non-Inv Card Lab Procedures Echocardiogram Transthoracic([facility]) [facility] [place] [address] [place] [address] Referral ID Status Reason Start Date Expiration Date Visits V isits Requested Authorized [id number] Closed Specialty 03/22/2021 03/22/2022 1 1 Service Requested Reason for Visit Diagnostic Test (Routine) - Closed Specialty Diagnoses / Procedures Referred By Contact Refer red To Contact Cardiology Diagnoses Other iron deficiency anemia SOB (shortness of breath) Cheryle Dai MD [facility] Non-Inv Card Lab Procedures Echocardiogram Transthoracic([facility]) [facility] [place] [address] [place] [address] Referral ID Status Reason Start Date Expiration Date Visits V isits Requested Authorized [id number] Closed Specialty 03/22/2021 03/22/2022 1 1 Service Requested Encounter Details Date Type Department Care Team Description 07/11/2021 Hospital Encounter Non-Invasive Cheryle Dai Other iron deficiency anemia; Cardiology Lab Ashley Hubbard MD SOB (shortness of breath) [facility] [address] DEPT. [place], [place] [address] [phone] Social History Tobacco Use Types Packs/Day Years Used Date Never Smoker Smokeless Tobacco: Never Used Sex Assigned at Date Recorded Not on file documented as of this encounter Medications at Time of Discharge Medication Sig Dispensed Refills Start Date End Date furosemide (Lasix) 20 mg Take 20 mg by mouth 0 Tablet daily. omeprazole (PRILOSEC) 20 Take 1 capsule by [...] mouth daily. 0 D3, 1,000 unit Capsule [place]-3 Fatty Take 2,000 mg by 0 Acids-Vitamin E (FISH mouth daily. OIL) 1,000 mg Cap amlodipine (NORVASC) 5 Take 1 tablet by 30 tablet 3 08/12/ 011 mg tablet mouth daily. pravastatin (PRAVACHOL) 40mg, PO, QPM 0 6 40 mg tablet Psyllium Seed-Sucrose 0 12/26/2004 (METAMUCIL) Powd folic acid (Folvite) 1 Take 1 tablet by 90 tablet 3 021 05/09/2022 mg Tablet mouth daily. metHOTREXate 2.5 mg Take 4 tablets by 48 tablet 1 1 07/31/2021 Tablet mouth once a week. hydrOXYchloroQUINE Take 1 tablet by 90 tablet 3 11/07/2020 10/19/2021 (Plaquenil) 200 mg mouth daily. TabletIndications: Indications: Dermatomyositis Dermatomyositis spironolactone 0 02/17/2020 08/20/2021 (Aldactone) 25 mg Tablet documented as of this encounter Plan of Treatment Upcoming Encounters Date Type Specialty Care Team Description 06/18/2022 Office Visit Rheumatology Cheyrle Dai MD [facility] [address] RHEUMATOLOGY [facility], [place] [address] (Wo rk) documented as of this encounter Procedures Procedure Name Priority Date/Time Associated Comments Diagnosis ECHOCARDIOGRAM COMPLETE Routine 07/11/2021 11:17 Other iron Results for this W CONTRAST AM EDT deficiency anemi a procedure are in SOB (shortness of the result s breath) section. documented in this encounter Results ECHOCARDIOGRAM COMPLETE W CONTRAST (07/11/2021 11:17 AM EDT) athologist Signature EF 73 [facility] Anatomical Region Laterality Modality Other Specimen (Source) Anatomical Location Collection Method / Collectio n Time Received Time / Laterality Volume 07/11/2021 Narrative 07/11/2021 11:27 AM EDT Procedure: ?Transthoracic Echocardiogram Patient: ?ATIYA GUERRIER ?? (Age): 1940(81y) Med Rec#: ? [id number] ?Sex: ?F ? Site Loc: ? [facility] ?Ht / Wt: ??149.86(cm)/82.1 Pt. Loc: ?Echo Lab ?BSA: ?1.77 Study Date: ?? 07/11/2021 ?Pt. Type: Outpatient Tape: ? Referring: [email or web address] Reading: Maurice Giraldo ([id number]) Fishing Game Warden: Deanna Bolton Diagnosis: *Other iron deficiency anemias (D50.8) *Shortness of breath (R06.02) Rhythm: ? Sinus BP: ? 182/61 SUMMARY: 1. Technically limited 2. The left ventricular chamber size is normal. Global left ventricular systolic function appears hyperdynamic. ??Ejection fraction is estimated to be 73%. There are no left ventricular segmental wall motion abnormalities. 3. The right ventricle is normal in size . Right ventricular global systolic function is normal. The estimat ed pulmonary artery systolic pressure is 40 mmHg. 4. The mitral valve leaflets appear norm al. There is no evidence of mitral stenosis. There is mild (1+/4+) m itral regurgitation present. 5. See remainder of report for additiona l findings. There is no prior study available. Findings ? : Study Quality: ? Technically limited Left Ventricle: ? The left ventricul ar chamber size is normal. ?Global left ventricular systolic f unction appears hyperdynamic. Ejection fraction is estimated to be 73% . ?There are no left ventricular segm ental wall motion abnormalities. ?Doppler assessment is consistent w ith normal left sided filling pressure. Left Atrium: ? The left atrium is no rmal in size. ?No atrial septal defect is visuali zed. Right Ventricle: ? The right ventric le is normal in size. ?Right ventricular global systolic function is normal. ?The estimated pulmonary artery sys tolic pressure is 40 mmHg. Right Atrium: ? The right atrium is normal in size. Aortic Valve: ? The aortic valve is tricuspid. ?The aortic valve leaflets are mild ly thickened. ?There is no evidence of aortic wade ve stenosis. ?There is no evidence of aortic reg urgitation. Mitral Valve: ? The mitral valve torres flets appear normal. ?There is no evidence of mitral jennifer nosis. ?There is mild (1+/4+) mitral regur gitation present. Tricuspid Valve: ? The tricuspid wade ve leaflets are morphologically normal. ?There is mild (1+/4+) tricuspid re gurgitation present. Pulmonic Valve: ? The pulmonic valve is not well visualized. Pericardium: ? There is no pericardi al effusion. Aorta: ? The aortic root is normal i n size. ?The ascending aorta was not well v isualized. Pulmonary Artery: ? The main pulmona ry artery is not well visualized. Venous: ? The inferior vena cava seb ears normal in size. ?There is a greater than 50% respir atory change in the inferior vena cava dimension. Misc: ? See remainder of report for additional findings. ?Two-dimensional echo, spectral Dop pler and color Doppler performed. ?Optison contrast (one 3 ml vial) w as used to enhance endocardial definition. Excess contrast was discarde d. Chambers 2D ?Value ?Units (Range) ? Ao root diameter (2D3.2 ?cm (2.1 - 3.6) ? Volumes/Mass ?Value ?Units (Range) ? LA Area 4 CH ?23 ? cm2 (<21) ? RA AREA 4CH ? 16 ? cm2 ? LA ESV BP (MOD) inde34.4 ? ml/m2 ? LV ESV SP 4CH (MOD) 28.5 ? ml ? LV ESV SP 2CH (MOD) 19.9 ? ml ? LV EDV BP ? 88.8 ? ml ? LV ESV BP ? 24 ? ml ? LV EDV BP index ? 50.24 ?ml/m2 ? LV ESV BP index ? 13.58 ?ml/m2 ? BP EF (MOD) ? 72.97 ?% ? Diastolic/Systolic Function ?Value ?Units (Range) ? MV E-wave Vmax ?0.84 ? m/sec ? MV deceleration [id number] ?msec ? MV A-wave Vmax ?0.46 ? m/sec ? MV E:A ratio ?1.83 ? ratio ? LV septal e' Vmax ?? 0.07 ? m/sec ? LV lateral e' Vmax ??0.07 ? m/sec ? LV average e' Vmax ??0.07 ? m/sec ? LV E:e' septal ratio12 ? ratio ? LV E:e' lateral rati12 ? ratio ? LV average E:e' rati12 ? ratio ? Aortic Valve ?Value ?Units (Range) ? LVOT diameter ? 2 ?cm ? LVOT Vmax ? 0.97 ? m/sec ? LVOT VTI ?23.6 ? cm ? LVOT peak gradient ??4 ?mmHg ? LVOT mean gradient ??2 ?mmHg ? SV LVOT ? 74.1 ? ml ? SV LVOT Index ? 42 ? ml/m2 ? Mitral Valve ?Value ?Units (Range) ? MV PHT ?75 ? msec ? MVA (PHT) ? 2.93 ? cm2 ? Tricuspid Valve ?Value ?Units (Range) ? TR Vmax ? 3.04 ? m/sec ? TR peak gradient ?36.97 ?mmHg ? RAP ? 3 ?mmHg ? RVSP ?40 ? mmHg ? This report has been electronically sign ed by: _ Maurice Giraldo MD ? 07/11/2021 11: 26:56 Images reviewed and interpretation verif ied [facility] Cardiac Ultrasound Laboratory Procedure Note Maurice Giraldo MD - 07/11/2021Formatti ng of this note might be different from the original. Procedure: Transthoracic Echocardiogram Patient: ATIYA CHAU(Age): 0 1940(81y) Med Rec#: [id number] Sex: F Site Loc: [facility] [place] [facility] Ht / Wt: 149.86(cm)/82.1 Pt. Loc: Echo Lab BSA: 1.77 Study Date: 07/11/2021 Pt. Type: Outpati ent Tape: Referring: BETY Reading: Maurice Giraldo ([id number]) Fishing Game Warden: Deanna Bolton Diagnosis: *Other iron deficiency anemias (D50.8) *Shortness of breath (R06.02) Rhythm: Sinus BP: 182/61 SUMMARY: 1. Technically limited 2. The left ventricular chamber size is normal. Global left ventricular systolic function appears hyperdynamic. Ejection fraction is estimated to be 73%. There are no left ventricular segmental wall motion abnormalities. 3. The right ventricle is normal in size . Right ventricular global systolic function is normal. The estimat ed pulmonary artery systolic pressure is 40 mmHg. 4. The mitral valve leaflets appear norm al. There is no evidence of mitral stenosis. There is mild (1+/4+) m itral regurgitation present. 5. See remainder of report for additiona l findings. There is no prior study available. Findings : Study Quality: Technically limited Left Ventricle: The left ventricular enmanuel mber size is normal. Global left ventricular systolic functi on appears hyperdynamic. Ejection fraction is estimated to be 73% . There are no left ventricular segmental wall motion abnormalities. Doppler assessment is consistent with n ormal left sided filling pressure. Left Atrium: The left atrium is normal i n size. No atrial septal defect is visualized. Right Ventricle: The right ventricle is normal in size. Right ventricular global systolic funct ion is normal. The estimated pulmonary artery systolic pressure is 40 mmHg. Right Atrium: The right atrium is normal in size. Aortic Valve: The aortic valve is tricus pid. The aortic valve leaflets are mildly th ickened. There is no evidence of aortic valve st enosis. There is no evidence of aortic regurgit ation. Mitral Valve: The mitral valve leaflets appear normal. There is no evidence of mitral stenosis . There is mild (1+/4+) mitral regurgitat ion present. Tricuspid Valve: The tricuspid valve torres flets are morphologically normal. There is mild (1+/4+) tricuspid regurgi tation present. Pulmonic Valve: The pulmonic valve is no t well visualized. Pericardium: There is no pericardial eff usion. Aorta: The aortic root is normal in size . The ascending aorta was not well visual ized. Pulmonary Artery: The main pulmonary art isaac is not well visualized. Venous: The inferior vena cava appears n ormal in size. There is a greater than 50% respiratory change in the inferior vena cava dimension. Misc: See remainder of report for additi onal findings. Two-dimensional echo, spectral Doppler and color Doppler performed. Optison contrast (one 3 ml vial) was us ed to enhance endocardial definition. Excess contrast was discarde d. Chambers 2D Value Units (Range) Ao root diameter (2D3.2 cm (2.1 - 3.6) Volumes/Mass Value Units (Range) LA Area 4 CH 23 cm2 (<21) RA AREA 4CH 16 cm2 LA ESV BP (MOD) inde34.4 ml/m2 LV ESV SP 4CH (MOD) 28.5 ml LV ESV SP 2CH (MOD) 19.9 ml LV EDV BP 88.8 ml LV ESV BP 24 ml LV EDV BP index 50.24 ml/m2 LV ESV BP index 13.58 ml/m2 BP EF (MOD) 72.97 % Diastolic/Systolic Function Value Units (Range) MV E-wave Vmax 0.84 m/sec MV deceleration [id number] msec MV A-wave Vmax 0.46 m/sec MV E:A ratio 1.83 ratio LV septal e' Vmax 0.07 m/sec LV lateral e' Vmax 0.07 m/sec LV average e' Vmax 0.07 m/sec LV E:e' septal ratio12 ratio LV E:e' lateral rati12 ratio LV average E:e' rati12 ratio Aortic Valve Value Units (Range) LVOT diameter 2 cm LVOT Vmax 0.97 m/sec LVOT VTI 23.6 cm LVOT peak gradient 4 mmHg LVOT mean gradient 2 mmHg SV LVOT 74.1 ml SV LVOT Index 42 ml/m2 Mitral Valve Value Units (Range) MV PHT 75 msec MVA (PHT) 2.93 cm2 Tricuspid Valve Value Units (Range) TR Vmax 3.04 m/sec TR peak gradient 36.97 mmHg RAP 3 mmHg RVSP 40 mmHg This report has been electronically sign ed by: _ Maurice Giraldo MD 07/11/2021 11:26:56 Images reviewed and interpretation kera collins [facility] Cardiac Ultrasound Laboratory Cheryle Dai MD ECHO ORDERABLES documented in this encounter Visit Diagnoses Diagnosis Other iron deficiency anemia SOB (shortness of breath) Shortness of breath documented in this encounter Administered Medications Inactive Administered Medications - up to 3 most recent administrations Medication Order MAR Action Action Date Dose Rate Site perflutren protein-A microsphers Given 07/11/2021 10:45 AM EDT 1 .5 mLs (Optison) (0.22 mg/mL) injection 0.5 mL 0.5 mL, Intravenous, ONCE PRN, 1 dose, Starting on Fri07/11/21 at 1117, Until Fri07/11/21 at 1045, for enhancement of sub-optimal echo images, Echo Lab (Intra-Procedure), Routine documented in this encounter Care Teams Squaring Shear Operator Relationship Specialty Start Date End Date Mir Mancini MD PCP - General Family Medicine 05/25/[address] [place] [address] documented as of this encounter
--- OUTSIDE RECORDS SUMMARY | 2022-06-07 01:15 | XMS_ITS | Encounter Summary ---
:1940 Author Organization [facility] [place] [address] Care Team Providers Name Role Phone Mir Mancini MD Primary Care Provider [phone] Reason for Visit Reason Onset Date Comments Labs Only 03/23/2021 Encounter Details Date Type Department Care Team Description 03/23/2021 Telephone Rheumatology at [facility] [place] [address] Social History Tobacco Use Types Packs/Day Years Used Date Never Smoker Smokeless Tobacco: Never Used Sex Assigned at Date Recorded Not on file documented as of this encounter Miscellaneous Notes Telephone Encounter - Yoseph Becerra RN - 03/26/2021 12:04 PM EDT Patient updated orders faxed. Telephone Encounter - Yoseph Becerra RN - 03/23/2021 11:15 AM EDT Patient updated on message from provider. Request labs be done in [facility]. Will request orders be faxed. Telephone Encounter - Yoseph Becerra RN - 03/23/2021 11:14 AM EDT ----- Message from Cheryle Dai MD sent at 03/22/2021 10:33 PM EDT ----- Please call Milagros and let her know that the CT scan did not show any inflammation in the lungs, but the heart was enlarged, so I ordered an echo (ultrasound of the heart) to look at this further. The pulmonary function tests had some mild suggestions of the lungs being a little tight (but usually we see a reason for this on the CT). The breathing test showed that you have normal levels of oxygen in your blood, but you may have anemia (you had a very mild anemia before) which may be making it harder to get the oxygen from the lungs. I ordered a follow up blood count and anemia tests (iron, bone marrow test). I will be back next week and I can answer any questions if she has them then. Thank you. Cheryle ----- Message ----- From: Gama Ancillary In Sent: 03/21/2021 12:21 PM EDT To: Cheryle Dai MD documented in this encounter Plan of Treatment Upcoming Encounters Date Type Specialty Care Team Description 06/18/2022 Office Visit Rheumatology Cheryle Dai MD [facility] DR RHEUMATOLOGY [place], [place] [address] (Wo rk) documented as of this encounter Visit Diagnoses Not on filedocumented in this encounter Care Teams Teletype Operator Relationship Specialty Start Date End Date Mir Mancini MD PCP - General Family Medicine 05/25/[address] [place] [address] documented as of this encounter
--- OUTSIDE RECORDS SUMMARY | 2022-06-07 01:15 | XMS_ITS | Encounter Summary ---
:1940 Author Organization [place] [address] Care Team Providers Name Role Phone Mir Mancini MD Primary Care Provider [phone] Encounter Details Date Type Department Care Team Description 08/21/2021 Orders Only Cardiology at [facility] Maurice Giraldo, Coronary artery [facility] MD disease, unspecified [facility] vessel or lesion type, [place], [place] unspecified whether [id number] [address] DEPT angina present, [place], [place] [address] unspecified whether [phone] ak chin or trans planted (Work) heart Social History Tobacco Use Types Packs/Day Years Used Date Never Smoker Smokeless Tobacco: Never Used Sex Assigned at Date Recorded Not on file documented as of this encounter Progress Notes Lexie Rod RN - 08/21/2021 11:10 AM EST Cbc prior to cardiac cath- protocol documented in this encounter Plan of Treatment Upcoming Encounters Date Type Specialty Care Team Description 06/18/2022 Office Visit Rheumatology Cheryle Dai MD [facility] DR RHEUMATOLOGY DEP T. [place], [place] [address] (Wo rk) Scheduled Orders Name Type Priority Associated Diagnoses Order S chedule CBC (with Diff) Lab Routine Coronary artery disease, Expected: 08/21/2021 unspecified vessel or lesion (Approximate), Expires: type, unspecified whether angina present, unspecified whether ak chin or transplant ed heart documented as of this encounter Visit Diagnoses Diagnosis Coronary artery disease, unspecified ves moisés or lesion type, unspecified whether angina present, unspecified whether claudia ve or transplanted heart documented in this encounter Care Teams Brazer Helper Induction Relationship Specialty Start Date End Date Mir Mancini MD PCP - General Family Medicine 05/25/18 [facility] [address] [place] [address] documented as of this encounter
--- OUTSIDE RECORDS SUMMARY | 2022-06-07 01:15 | XMS_ITS | Encounter Summary ---
:1940 Author Organization [facility] [place] [address] Care Team Providers Name Role Phone Mir Mancini MD Primary Care Provider [phone] Reason for Visit Reason Comments Follow-up Encounter Details Date Type Department Care Team Description 05/30/2021 Office Visit Rheumatology at [facility] [place] Cheryle Dai iron deficiency anemia ; [facility] MD [place] Dermatomyositis; Drive [facility] KWONG (dyspnea on exertion); [place] [address]ENTER High risk medication use; [phone] RHEUMATOLOGY History of shalini icosteroid therapy; DEPT. SOB (shortness of breath) [place] [address] Social History Tobacco Use Types Packs/Day Years Used Date Never Smoker Smokeless Tobacco: Never Used Sex Assigned at Date Recorded Not on file documented as of this encounter Last Filed Vital Signs Vital Sign Reading Time Taken Comments Blood Pressure 190/50 05/30/2021 11:37 AM EDT Pulse 54 05/30/2021 11:30 AM EDT Temperature 36.3 ??C (97.3 ??F) 05/30/2021 11:30 AM EDT Respiratory Rate 16 05/30/2021 11:30 AM EDT Oxygen Saturation 99% 05/30/2021 11:30 AM EDT Inhaled Oxygen Concentration - - Weight 82.5 kg (181 lb 12.8 05/30/2021 11:30 AM weighed at home oz) EDT Height 149.9 cm (4' 11) 05/30/2021 11:30 AM EDT Body Mass Index 36.72 05/30/2021 11:30 AM EDT documented in this encounter Progress Notes Cheryle Dai MD - 05/30/2021 11:30 AM EDT Former pt of Shelly Alcaraz 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 She has discussed this with her PCP. NO DAWSON or CP at this time. She has an EKG pending. Her has dementia. She oc. Gets some pain in the muscle. Some pain in the hands and the knees. Does not feel weak. Her balance is not quite as good as it used be. No infections. Past: SOB with exertion, has not had PFTs and CT. Some muscle aches more in her deltoids B. She had to stop a medication as it was giving her some myalgias (sprionalactone). She feels her pressures aredifferent. NO rashes. 7.5mg of MTX. Her CK [...] 04/2018, then to 08/2018 23, CK went [id number] over the same time (inverse relationship). 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 Temp 36.3 ??C (97.3 ??F) (Temporal) Ht 149.9 cm (4' 11) Wt 82.5 kg (181 lb 12.8 oz) Comment: weighed at home BMI 36.72 kg/m?? She looks well, strength is normal. Lungs clear No rashes Labs/studies: Reviewed increased to 330 (higher than usual) PFTs 02/2021: Spirometry suggests restriction. Lung volumes indicate normal total lung capacity, but there is evidence of air trapping, which accounts for the reduced FVC. Mild reduction in diffusing capacity (DLCO > 60% and < lower limit of normal). Isolated reduced DLCO suggests the possibility of disease of the pulmonary vasculature, early emphysema, early interstitial disease, anemia, or carboxyhemoglobinemia/heavy tobacco smoking. CT 03/21/2021: IMPRESSION ?? 1. No CT evidence of interstitial lung disease. 2. No noncontrast CT evidence of acute inflammatory process within the thorax. 3. Moderate cardiomegaly. Asymmetric biatrial enlargement. 4. Hypoattenuation of the intraventricular contents as compared to the myocardium, which can be seen in anemia. Correlation with hemoglobin and hematocrit is recommended.IMPRESSION ?? 1. No CT evidence of interstitial lung disease. 2. No noncontrast CT evidence of acute inflammatory process within the thorax. 3. Moderate cardiomegaly. Asymmetric biatrial enlargement. 4. Hypoattenuation of the intraventricular contents as compared to the myocardium, which can be seen in anemia. Correlation with hemoglobin and hematocrit is recommended. See scanned documents for labs 04/2021--reviewed CK decreased to 220, inflammation under good control, cell counts, liver and kidneys Impression/Recommendations: Chronic disease, currently stable New onset KWONG--see above evaluation High risk medication monitoring. hypertension This very pleasant 81-year-old woman from Dr. Shelly Alcaraz). 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 She also has a history of some modestly elevated CKs--180 at last check--up to 226 in 10/06/20 (down from 290). She is primarily treated with prednisone in the past, and is on hydroxychloroquine and methotrexate 10mg currently. She is tolerating both these medications without significant side effects and actually feels better since the addition of the hydroxychloroquine. She has more KWONG, will check PFTs and CT--some cardiomegaly on CT but no ILD. An echo is pending. #Methotrexate 10 mg weekly--disease is clinically stable #Folic acid 1 mg daily #Hydroxychloroquine-200mg daily for GI sx-annual eye exam #DEXA completed 06/2019--T-0.7 in normal range, vitamin D 2000 IU and calcium 1200mg through diet # continue with exercise, let me know if worsening weakness. # hypertension with echo f/u from CT findings (noted above) -- if PCP would like sooner than June--ok by me to order closer to home if available. No chest pain, DAWSON or symptoms from elevated pressures today. # labs every 3 months, f/u in 6 Orders Placed This Encounter Procedures ??? CBC (with Diff) ??? Comprehensive metabolic panel (non-fasting) ??? Sedimentation rate ??? CRP, acute inflammation ??? CK documented in this encounter Plan of Treatment Upcoming Encounters Date Type Specialty Care Team Description 06/18/2022 Office Visit Rheumatology Cheryle Dai MD [facility] DR RHEUMATOLOGY [place], [place] [address] (Wo rk) Scheduled Orders Name Type Priority Associated Diagnoses Order S chedule CBC (with Diff) Lab Routine Other iron deficiency Exp ected: 05/30/2021 anemia (Approximate), Dermatomyositis Expires: 05/31/2022 KWONG (dyspnea on exertion) High risk medica tion use History of corticosteroid therapy SOB (shortness of breath) Comprehensive metabolic Lab Routine Other iron defici ency Expected: panel (non-fasting) anemia 05/30/2021, Expires: Dermatomyositis 05/31/2022 KWONG (dyspnea on exertion) High risk medica tion use History of corticosteroid therapy SOB (shortness of breath) Sedimentation rate Lab Routine Other iron deficiency Expected: anemia 05/30/2021, Expires: Dermatomyositis 05/31/2022 KWONG (dyspnea on exertion) High risk medica tion use History of corticosteroid therapy SOB (shortness of breath) CK Lab Routine Other iron deficiency Expect ed: anemia 05/30/2021, Expires: Dermatomyositis 05/30/2022 KWONG (dyspnea on exertion) High risk medica tion use History of corticosteroid therapy SOB (shortness of breath) documented as of this encounter Visit Diagnoses Diagnosis Other iron deficiency anemia Dermatomyositis KWONG (dyspnea on exertion) Other dyspnea and respiratory abnormalit y High risk medication use Encounter for long-term (current) use of other medications History of corticosteroid therapy Personal history of systemic steroid the rapy SOB (shortness of breath) Shortness of breath documented in this encounter Care Teams Spring Maker Relationship Specialty Start Date End Date Mir Mancini MD PCP - General Family Medicine 05/25/[address] [place] [address] (work) documented as of this encounter
--- OUTSIDE RECORDS SUMMARY | 2022-06-07 01:15 | XMS_ITS | Encounter Summary ---
:1940 Author Organization [facility] [place] [address] Care Team Providers Name Role Phone Mir Mancini MD Primary Care Provider [phone] Reason for Visit Reason Comments Medication Refill Encounter Details Date Type Department Care Team Description 07/30/2021 Refill Rheumatology at [facility] [place] Cheryle Dai, Dermatomyositis; [facility] Liz crocker MD High [place] [address] [facility] [phone] RHEUMATOLOGY DEP [place], [place] [address] (Wo rk) Social History Tobacco Use Types Packs/Day Years Used Date Never Smoker Smokeless Tobacco: Never Used Sex Assigned at Date Recorded Not on file documented as of this encounter Plan of Treatment Upcoming Encounters Date Type Specialty Care Team Description 06/18/2022 Office Visit Rheumatology Cheryle Dai MD [facility] RHEUMATOLOGY DEP [place], [place] [address] (Wo rk) documented as of this encounter Visit Diagnoses Diagnosis Dermatomyositis High risk medication use Encounter for long-term (current) use of other medications documented in this encounter Care Teams Mechatronics Engineer Relationship Specialty Start Date End Date Mir Mancini MD PCP - General Family Medicine 05/25/[address] [place] [address] documented as of this encounter
--- OUTSIDE RECORDS SUMMARY | 2022-06-07 01:15 | XMS_ITS | Encounter Summary ---
:1940 Author Organization [facility] [place] [address] Care Team Providers Name Role Phone Mir Mancini MD Primary Care Provider [phone] Reason for Visit Reason Onset Date Comments Labs Only 03/03/2020 Medication Refill 03/03/2020 Encounter Details Date Type Department Care Team Description 03/03/2020 Refill Rheumatology at [facility] [place] Yoseph Becerra, [place] [address] Social History Tobacco Use Types Packs/Day Years Used Date Never Smoker Smokeless Tobacco: Never Used Sex Assigned at Date Recorded Not on file documented as of this encounter Miscellaneous Notes Telephone Encounter - Yoseph Becerra RN - 03/03/2020 3:42 PM EDT ----- Message from Cheryle Dai MD sent at 03/03/2020 3:39 PM EDT ----- Please let her know her labs look good--cell count, liver and inflammation. No new concerns. Thank you. ----- Message ----- From: Gama, Camp Dishwasher Sent: 02/28/2020 10:46 AM EDT To: Cheryle Dai MD Patient updated on above and expressed understanding. documented in this encounter Plan of Treatment Upcoming Encounters Date Type Specialty Care Team Description 06/18/2022 Office Visit Rheumatology Cheryle Dai MD [facility] DR RHEUMATOLOGY [place], [place] [address] (Wo rk) documented as of this encounter Visit Diagnoses Not on filedocumented in this encounter Care Teams Line Maintainer Section Relationship Specialty Start Date End Date Mir Mancini MD PCP - General Family Medicine 05/25/[address] [place] [address] documented as of this encounter
--- OUTSIDE RECORDS SUMMARY | 2022-06-07 01:15 | XMS_ITS | Encounter Summary ---
:1940 Author Organization [facility] [place] [address] Care Team Providers Name Role Phone Mir Mancini MD Primary Care Provider [phone] Reason for Visit Reason Onset Date Comments Medication Refill 11/07/2020 Encounter Details Date Type Department Care Team Description 11/07/2020 Refill Rheumatology at [facility] [place] Jc Shearer, [place] [address] Social History Tobacco Use Types Packs/Day Years Used Date Never Smoker Smokeless Tobacco: Never Used Sex Assigned at Date Recorded Not on file documented as of this encounter Miscellaneous Notes Telephone Encounter - Jc Shearer RN - 11/07/2020 12:33 PM EST Rheumatology appointment in the last 6 months? Yes RN confirm MTX dose? 7.5 mg weekly Most recent labs: External labs? Yes [ WBC Date Value Ref Range Status 07/20/2019 4.4 4.0 - 9.5 x10(3)/mcL Final Hemoglobin Date Value Ref Range Status 07/20/2019 11.7 11.7 - 15.5 gm/dL Final MCV Date Value Ref Range Status 07/20/2019 89.9 82.6 - 94.4 fL Final Platelets Date Value Ref Range Status 07/20/2019 193 145 - 357 x10(3)/mcL Final Creatinine Date Value Ref Range Status 07/20/2019 0.73 0.70 - 1.20 mg/dL Final Albumin Date Value Ref Range Status 07/20/2019 4.6 3.2 - 5.2 gm/dL Final AST Date Value Ref Range Status 07/20/2019 22 0 - 30 unit/L Final ALT Date Value Ref Range Status 07/20/2019 13 0 - 30 unit/L Final ] If last labs >12 weeks, were new labs ordered per protocol by RN? No Follow-up appointment scheduled: Yes [facility] scheduling: No documented in this encounter Plan of Treatment Upcoming Encounters Date Type Specialty Care Team Description 06/18/2022 Office Visit Rheumatology Cheryle Dai MD [facility] ER DR RHEUMATOLOGY [place], [place] [address] (Wo rk) documented as of this encounter Visit Diagnoses Not on filedocumented in this encounter Care Teams Auto Body Straightener Relationship Specialty Start Date End Date Mir Mancini MD PCP - General Family Medicine 05/25/[address] [place] [address] documented as of this encounter
--- OUTSIDE RECORDS SUMMARY | 2022-06-07 01:15 | XMS_ITS | Encounter Summary ---
:1940 Author Organization [facility] [place] [address] Care Team Providers Name Role Phone Mir Mancini MD Primary Care Provider [phone] Reason for Referral Diagnostic Test (Routine) - Closed Specialty Diagnoses / Procedures Referred By Contact Refer red To Contact Cardiology Diagnoses Other iron deficiency anemia SOB (shortness of breath) Cheryle Dai MD [facility] Non-Inv Card Lab Procedures Echocardiogram Transthoracic([facility] or [facility]) [facility] [place] [address] [place] [address] Referral ID Status Reason Start Date Expiration Date Visits V isits Requested Authorized [id number] Closed Specialty 03/22/2021 03/22/2022 1 1 Service Requested Encounter Details Date Type Department Care Team Description 03/22/2021 Orders Only [place]ology [place] [facility] [place] Dai, Other iron deficiency anemia ; [facility] SOB (shortness of breath) [place] [address] RHEUMATOLOGY DEP [place], [place] [address] Social History Tobacco Use Types Packs/Day Years Used Date Never Smoker Smokeless Tobacco: Never Used Sex Assigned at Date Recorded Not on file documented as of this encounter Plan of Treatment Upcoming Encounters Date Type Specialty Care Team Description 06/18/2022 Office Visit Rheumatology Cheryle Dai MD [facility] ER DR RHEUMATOLOGY DEP [place] [address] (Wo rk) documented as of this encounter Results ECHOCARDIOGRAM COMPLETE W CONTRAST (07/11/2021 11:17 AM EDT) P athologist Signature EF 73 [facility] Anatomical Region Laterality Modality Other Specimen (Source) Anatomical Location Collection Method / Collectio n Time Received Time / Laterality Volume 07/11/2021 Narrative 07/11/2021 11:27 AM EDT Procedure: ?Transthoracic Echocardiogram Patient: ?ATIYA GUERRIER ?? (Age): 1940(81y) Med Rec#: ? [id number] ?Sex: ?F ? Site Loc: ? [facility] ?Ht / Wt: ??149.86(cm)/82.1 Pt. Loc: ?Echo Lab ?BSA: ?1.77 Study Date: ?? 07/11/2021 ?Pt. Type: Outpatient Tape: ? Referring: BETY Reading: Maurice Giraldo ([id number]) History Card Clerk: Deanna Bolton Diagnosis: *Other iron deficiency anemias [...] Vmax ?0.84 ? m/sec ? MV deceleration [id number] ?msec ? MV A-wave Vmax ?0.46 ? [...] 07/11/2021 11: 26:56 Images [facility] Procedure Note Maurice Giraldo MD - 07/11/2021Formatti ng of this note might be different from the original. Procedure: Transthoracic Echocardiogram Patient: ATIYA CHAU(Age): 0 1940(81y) Med Rec#: [id number] Sex: F Site Loc: [facility] Ht / Wt: 149.86(cm)/82.1 Pt. Loc: Echo Lab BSA: 1.77 Study Date: 07/11/2021 Pt. Type: Outpati ent Tape: Referring: BETY Reading: Maurice Giraldo ([id number]) History Card Clerk: Deanna Bolton Diagnosis: *Other iron deficiency anemias [...] MV E-wave Vmax 0.84 m/sec MV deceleration [id number] msec MV A-wave Vmax 0.46 m/sec MV [...] report has been electronically sign ed by: Prema Giraldo MD 07/11/2021 11:26:56 Images reviewed and interpretation kera collins [facility] Cardiac Ultrasound Laboratory Cheryle Dai MD ECHO ORDERABLES documented in this encounter Visit Diagnoses Diagnosis Other iron deficiency anemia SOB (shortness of breath) Shortness of breath Other iron deficiency anemia SOB (shortness of breath) Shortness of breath documented in this encounter Care Teams Rip And Groove Machine Operator Relationship Specialty Start Date End Date Mir Mancini MD PCP - General Family Medicine 05/25/[address] [place] [address] documented as of this encounter
--- OUTSIDE RECORDS SUMMARY | 2022-06-07 01:15 | XMS_ITS | Encounter Summary ---
:1940 Author Organization [facility] [place] [address] Care Team Providers Name Role Phone Mir Mancini MD Primary Care Provider [phone] Reason for Visit Reason Onset Date Comments Medication Refill 10/04/2019 Encounter Details Date Type Department Care Team Description 10/04/2019 Refill [place] [facility] [place] [address] Social History Tobacco Use Types Packs/Day Years Used Date Never Smoker Smokeless Tobacco: Never Used Sex Assigned at Date Recorded Not on file documented as of this encounter Miscellaneous Notes Telephone Encounter - Jc Shearer RN - 10/04/2019 3:18 PM EST Milagros calls to ask for her prescriptions to sent to a new pharmacy. Cued up with new pharmacy and sent to her provider. documented in this encounter Plan of Treatment Upcoming Encounters Date Type Specialty Care Team Description 06/18/2022 Office Visit Rheumatology Cheryle Dai MD [facility] ER DR RHEUMATOLOGY [place], [place] [address] (Wo rk) documented as of this encounter Visit Diagnoses Not on filedocumented in this encounter Care Teams Oil Well Driller Relationship Specialty Start Date End Date Mir Mancini MD PCP - General Family Medicine 05/25/[address] [place] [address] documented as of this encounter
--- OUTSIDE RECORDS SUMMARY | 2022-06-07 01:15 | XMS_ITS | Encounter Summary ---
:1940 Author Organization [facility] [place] [address] Care Team Providers Name Role Phone Mir Mancini MD Primary Care Provider [phone] Reason for Referral Consultation (Routine) - Closed Specialty Diagnoses / Procedures Referred By Contact Refer red To Contact Cardiology Diagnoses SOB (shortness of breath) PASP 40, SOB, modestly decreased DLCO--? PAH woman with longstanding dermato *ED Cheryle Dai MD [facility] 4a [facility] D [facility] [place] [address] [place] [address] Referral ID Status Reason Start Date Expiration Date Visits V isits Requested Authorized [id number] Closed Consult, 07/11/2021 07/11/2022 1 1 Test & Treat Encounter Details Date Type Department Care Team Description 07/11/2021 Orders Only Rheumatology at [facility] [place] Cheryle Dai SOB (shortness of [facility] breath) [place] [address] RHEUMATOLOGY DEP [address] [place], [place] [address] Social History Tobacco Use Types Packs/Day Years Used Date Never Smoker Smokeless Tobacco: Never Used Sex Assigned at Date Recorded Not on file documented as of this encounter Plan of Treatment Upcoming Encounters Date Type Specialty Care Team Description 06/18/2022 Office Visit Rheumatology Cheryle Dai MD [facility] DR RHEUMATOLOGY DEP [place] [address] (Wo rk) Scheduled Referrals Name Type Priority Associated Order Schedule Diagnoses Referral to Outpatient Referral Routine SOB (shortness of Ord ered: Cardiology breath) 07/11/2021 documented as of this encounter Visit Diagnoses Diagnosis SOB (shortness of breath) Shortness of breath documented in this encounter Care Teams Tin Stacker Relationship Specialty Start Date End Date Mir Mancini MD PCP - General Family Medicine 05/25/[address] [place] [address] documented as of this encounter
--- OUTSIDE RECORDS SUMMARY | 2022-06-07 01:15 | XMS_ITS | Encounter Summary ---
:1940 Author Organization [facility] [place] [address] Care Team Providers Name Role Phone Mir Mancini MD Primary Care Provider [phone] Encounter Details Date Type Department Care Team Description 10/10/2020 [place] [facility] [place]yle Dai Dermatomyositis; (TeleHealth) [facility] MD [place] High risk medication use; [facility] History of corticosteroid th [place], [place] [address] Asymptomatic menopausal state [phone] RHEUMATOLOGY [phone] [place] [address] Social History Tobacco Use Types Packs/Day Years Used Date Never Smoker Smokeless Tobacco: Never Used Sex Assigned at Date Recorded Not on file documented as of this encounter Progress Notes Cheryle Dai MD - 10/10/2020 11:00 AM EST Former pt of Shelly Alcaraz followed for dermatomyositis Cc: she is doing pretty well HPI: She is doing ok. She has occ pains in her arms and her hands have some arthritis but she thinksit is under control. She took her BP [...] 04/2018, then to 08/2018 23, CK went [id number] over the same time (inverse relationship). [...] were no vitals taken for this visit. See patient reported vitals in HPI Labs/studies: See HPI Impression/Recommendations: This very pleasant 80-year-old woman transferring former Dr. Shelly Alcaraz). She has biopsy-proven dermatomyositis from about 25 years ago that [...] better since the addition of the hydroxychloroquine. Overall doing well from a dermatomyositis standpoint without obvious sign of flare or underlying malignancy. She feels like her disease overall in remission. She is able to be active. Will continue current dosing with follow up every 3 months. #Methotrexate 7.5 mg weekly #Folic acid 1 mg daily #Hydroxychloroquine-200mg daily for GI sx-annual eye exam #DEXA completed 06/2019--T-0.7 in normal range, vitamin D 2000 IU and calcium 1200mg through diet # continue with exercise, let me know if worsening weakness. documented in this encounter Plan of Treatment Upcoming Encounters Date Type Specialty Care Team Description 06/18/2022 Office Visit Rheumatology Cheryle Dai MD [facility] DR RHEUMATOLOGY [place], [place] [address] (Wo rk) documented as of this encounter Visit Diagnoses Diagnosis Dermatomyositis High risk medication use Encounter for long-term (current) use of other medications History of corticosteroid therapy Personal history of systemic steroid the rapy Asymptomatic menopausal state Asymptomatic postmenopausal status (age- related) (natural) documented in this encounter Care Teams Java Programmer Relationship Specialty Start Date End Date Mir Mancini MD PCP - General Family Medicine 05/25/[address] [place] [address] [address] [place] [address] documented as of this encounter
--- OUTSIDE RECORDS SUMMARY | 2022-06-07 01:15 | XMS_ITS | Encounter Summary ---
:1940 Author Organization [facility] [place] [address] Care Team Providers Name Role Phone Mir Mancini MD Primary Care Provider Encounter Details Date Type Department Care Team Description 08/15/2021 Orders Only Cardiology at [facility] Maurice Giraldo, SOB (shortness of [facility] breath) (Primary Dx) [place] [address] CARDIOLOGY DEPT [place], [place] [address] Social History Tobacco Use Types Packs/Day Years Used Date Never Smoker Smokeless Tobacco: Never Used Sex Assigned at Date Recorded Not on file documented as of this encounter Plan of Treatment Upcoming Encounters Date Type Specialty Care Team Description 06/18/2022 Office Visit Rheumatology Cheryle Dai MD [facility] RHEUMATOLOGY DEP [place], [place] [address] (Wo rk) Pending Results Name Type Priority Associated Diagnoses Date/Ti me EKG 12 Lead ECG Routine SOB (shortness of breath) 4:18 PM EST Scheduled Orders Name Type Priority Associated Diagnoses Order S chedule EKG 12 Lead ECG Routine SOB (shortness of breath) As Needed for 6 Occurrences starting 2020 until 08/15/2022, 1 c ompleted documented as of this encounter Visit Diagnoses Diagnosis SOB (shortness of breath) - Primary Shortness of breath documented in this encounter Care Teams Evaporator Operator Relationship Specialty Start Date End Date Mir Mancini MD PCP - General Family Medicine 05/25/18 [address] [facility] [address] [place] [address] documented as of this encounter
--- OUTSIDE RECORDS SUMMARY | 2022-06-07 01:15 | XMS_ITS | Encounter Summary ---
:1940 Author Organization [facility] Address [place] [id number] Care Team Providers Name Role Phone Mir Mancini MD Primary Care Provider [phone] Encounter Details Date Type Department Care Team Description 04/19/2020 Office Visit Rheumatology at [facility] Cheryle Dai Dermatomyositis; [facility] MD [place] [address] CENTER [phone] [place] [address] Social History Tobacco Use Types Packs/Day Years Used Date Never Smoker Smokeless Tobacco: Never Used Sex Assigned at Date Recorded Not on file documented as of this encounter Last Filed Vital Signs Vital Sign Reading Time Taken Comments Blood Pressure 147/47 04/19/2020 12:54 PM EDT Pulse 51 04/19/2020 12:54 PM EDT Temperature 36.4 ??C (97.6 ??F) 04/19/2020 12:54 PM EDT Respiratory Rate - - Oxygen Saturation 100% 04/19/2020 12:54 PM EDT Inhaled Oxygen Concentration - - Weight 82.6 kg (182 lb) 04/19/2020 12:54 PM EDT Height 149.9 cm (4' 11) 04/19/2020 12:54 PM EDT Body Mass Index 36.76 04/19/2020 12:54 PM EDT documented in this encounter Progress Notes Cheryle Dai MD - 04/19/2020 1:00 PM EDT Former pt of Shelly Alcaraz followed for dermatomyositis Cc: doing well HPI: She has occ muscle pain in her [...] 04/2018, then to 08/2018 23, CK went [id number] over the same time (inverse relationship). [...] smoker FH: No other relavant autoimmune PE: BP 147/47 Pulse 51 Temp 36.4 ??C (97.6 ??F) (Temporal) Ht 149.9 cm (4' 11) Wt 82.6 kg (182 lb) SpO2 100% BMI 36.76 kg/m?? Alert and pleasant in NAD, climbs onto the exam table without difficulty Skin: plethoric complexion no dermato rash. Plethoric cheeks Sclera anicteric, conjunctiva not injected Neck: no cervical adenopathy Lungs: CTAB Heart RRR no mrg Abd: Active bs, soft, nt, nd no masses or organomegaly appreciated Ext: no c/c/e pulses 2+ and symmetric at DP and radial Shoulders: She has some tenderness in extremes of internal and external rotation, and she is got a sub-acromial bursitis bilaterally Elbows: Within normal limits Wrists: Within normal limits Hands: No synovitis or swelling there is modest tenderness in the PIPs and DIPsHips: Full range of motion Knees: Full range of motion no effusions redness or warmth Ankles: Full range of motion no effusion redness or warmth Feet: early bunions and pes planus Neuro: grossly non-focal UE 5/5, LE 5/5 Labs/studies: See HPI Impression/Recommendations: This very pleasant 78-year-old woman transferring her care from Dr. Shelly Alcaraz. 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 She also has a history of some modestly elevated CKs--180at last check. She is primarily treated with prednisone in the past, and is on hydroxychloroquine and methotrexate currently. She is tolerating both these medications without significant side effects and actually feels better since the addition of the hydroxychloroquine, but she attributes increased gas and GI dsitress to this medication-which is posisble. Overall doing well from a dermatomyositis standpoint. Still has some concerns about her heart health as KWONG, and she is discussing with her PCP. #Methotrexate 7.5 mg weekly #Folic acid 1 mg daily #Hydroxychloroquine-decreased to 200mg daily for GI sx-annual eye exam #DEXA completed 06/2019--T-0.7 in normal range, vitamin D 2000 IU and calcium 1200mg through diet Orders Placed This Encounter Procedures ??? CRP, acute inflammation ??? Sedimentation rate ??? Comprehensive metabolic panel (non-fasting) ??? CBC (with Diff) ??? CK ??? Urinalysis with reflex Culture documented in this encounter Plan of Treatment Upcoming Encounters Date Type Specialty Care Team Description 06/18/2022 Office Visit Rheumatology Cheryle Dai MD [facility] RHEUMATOLOGY [facility] [place], [place] [address] (Wo rk) documented as of this encounter Visit Diagnoses Diagnosis Dermatomyositis High risk medication use Encounter for long-term (current) use of other medications documented in this encounter Care Teams Special Education Supervisor Relationship Specialty Start Date End Date Mir Mancini MD PCP - General Family Medicine 05/25/[address] [place] [address] [address] [place] [address] documented as of this encounter
--- OUTSIDE RECORDS SUMMARY | 2022-06-07 01:15 | XMS_ITS | Encounter Summary ---
:1940 Author Organization [facility] [place] [address] Care Team Providers Name Role Phone Mir Mancini MD Primary Care Provider [phone] Encounter Details Date Type Department Care Team Description 10/19/2020 Telephone Rheumatology at [facility] Cheryle Dai MD [facility] [place] [address] RHEUMATOLOGY DEPT. [phone] [place], [place] [address] (Wo rk) Social History Tobacco Use Types Packs/Day Years Used Date Never Smoker Smokeless Tobacco: Never Used Sex Assigned at Date Recorded Not on file documented as of this encounter Miscellaneous Notes Telephone Encounter - Vikki Head - 10/19/2020 4:04 PM EST Spoke with Milagros maurice adan for February 28 documented in this encounter Plan of Treatment Upcoming Encounters Date Type Specialty Care Team Description 06/18/2022 Office Visit Rheumatology Cheryle Dai MD [facility] ER RHEUMATOLOGY DEP [place], [place] [address] (Wo rk) documented as of this encounter Visit Diagnoses Not on filedocumented in this encounter Care Teams Water Pollution Control Inspector Relationship Specialty Start Date End Date Mir Mancini MD PCP - General Family Medicine 05/25/[address] [place] [address] documented as of this encounter
--- OUTSIDE RECORDS SUMMARY | 2022-06-07 01:15 | XMS_ITS | Encounter Summary ---
:1940 Author Organization [facility] [place] [address] Care Team Providers Name Role Phone Mir Mancini MD Primary Care Provider [phone] Reason for Visit Reason Comments Medication Refill Encounter Details Date Type Department Care Team Description 05/09/[address] [facility] Cheryle Dai MD [facility] [place] [address] RHEUMATOLOGY DEPT. [phone] [place], [place] [address] (Wo rk) Social History Tobacco Use Types Packs/Day Years Used Date Never Smoker Smokeless Tobacco: Never Used Sex Assigned at Date Recorded Not on file documented as of this encounter Plan of Treatment Upcoming Encounters Date Type Specialty Care Team Description 06/18/2022 Office Visit Rheumatology Cheryle Dai MD [facility] RHEUMATOLOGY DEP [place]. [place], [place] [address] (Wo rk) documented as of this encounter Visit Diagnoses Not on filedocumented in this encounter Care Teams Correspondence Representative Relationship Specialty Start Date End Date Mir Mancini MD PCP - General Family Medicine 05/25/[address] [place] [address] documented as of this encounter
--- OUTSIDE RECORDS SUMMARY | 2022-06-07 01:15 | XMS_ITS | Encounter Summary ---
:1940 Author Organization [facility] [place] [address] Care Team Providers Name Role Phone Mir Mancini MD Primary Care Provider [phone] Reason for Referral Diagnostic Test (Routine) - Closed Specialty Diagnoses / Procedures Referred By Contact Refer red To Contact Radiology Diagnoses Dermatomyositis High risk medication use KWONG (dyspnea on exertion) Cheryle Dai MD [facility] Rad Ct Scan Procedures CT Chest wo Contrast (Generic) [facility] [place] [address] [place] [address] Referral ID Status Reason Start Date Expiration Date Visits V isits Requested Authorized [id number] Closed Specialty 02/28/2021 08/30/2022 1 1 Service Requested Reason for Visit Diagnostic Test (Routine) - Closed Specialty Diagnoses / Procedures Referred By Contact Refer red To Contact Radiology Diagnoses Dermatomyositis High risk medication use KWOGN (dyspnea on exertion) Cheryle Dai MD [facility] Rad Ct Scan Procedures CT Chest wo Contrast (Generic) [facility] [place] [address] [place] [address] Referral ID Status Reason Start Date Expiration Date Visits V isits Requested Authorized [id number] Closed Specialty 02/28/2021 08/30/2022 1 1 Service Requested Encounter Details Date Type Department Care Team Description 03/21/[address] Scan at [facility] Cheryle Dai Dermatomyositis; [facility] Center MD [place] High risk medication use; [facility] KWONG (dyspnea on exertion) [place], [place] CENTER [address] RHEUMATOLOGY [phone] [place] [address] Social History Tobacco Use Types Packs/Day Years [...] mouth daily. 0 D3, 1,000 unit Capsule [place]-3 Fatty Take 2,000 mg by 0 Acids-Vitamin [...] Visit Rheumatology Cheryle Dai MD [facility] ER DR RHEUMATOLOGY [place], [place] [address] (Wo rk) documented as of this encounter Procedures Procedure Name Priority Date/Time Associated Diagnosis Comme nts CT CHEST WO Routine 03/21/2021 3:06 PM Dermatomyosit is Results for this CONTRAST (GENERIC) EDT High risk medication p rocedure are in use the results KWONG (dyspnea on section. exertion) documented in this encounter Results CT Chest wo Contrast [...] who have questions please contact the health healthcare financial analyst that requested your imaging first. ? Electronically signed by: Maurice Harvey DO, [facility] ([phone]), at 03/21/2021 3:41 PM Narrative 03/21/2021 3:41 [...] visceral organs, mediastinum, and vascular struct ures. Distribution District Supervisor Images: Noncontributory. Pulmonary parenchyma: There is no [...] visceral organs, mediastinum, and vascular struct ures. Distribution District Supervisor Images: Noncontributory. Pulmonary parenchyma: There is no [...] ho have questions please contact the health healthcare financial analyst that requested your imaging first. Electronically signed by: Maurice Harvey DO, [facility] ([phone]), at 03/21/2021 3:41 PM Cheryle Dai MD IMG CT ORDERABLES documented in this encounter Visit Diagnoses Diagnosis Dermatomyositis High risk medication use Encounter for long-term (current) use of other medications KWONG (dyspnea on exertion) Other dyspnea and respiratory abnormalit y documented in this encounter Care Teams Water Treatment Plant Repairer Relationship Specialty Start Date End Date Mir Mancini MD PCP - General Family Medicine 05/25/[address] [place] [address] documented as of this encounter
--- OUTSIDE RECORDS SUMMARY | 2022-06-07 01:15 | XMS_ITS | Encounter Summary ---
:1940 Author Organization [facility] [place] [address] Care Team Providers Name Role Phone Mir Mancini MD Primary Care Provider [phone] Encounter Details Date Type Department Care Team Description 08/22/2020 Telephone Rheumatology at [facility] [place] [place] [address] Social History Tobacco Use Types Packs/Day Years Used Date Never Smoker Smokeless Tobacco: Never Used Sex Assigned at Date Recorded Not on file documented as of this encounter Miscellaneous Notes Telephone Encounter - Vidya Albarran - 08/22/2020 10:17 AM EST Lm for pt to call and reschedule bumped appt. Sending letter documented in this encounter Plan of Treatment Upcoming Encounters Date Type Specialty Care Team Description 06/18/2022 Office Visit Rheumatology Cheryle Dai MD [facility] ER DR RHEUMATOLOGY [place], [place] [address] (Wo rk) documented as of this encounter Visit Diagnoses Not on filedocumented in this encounter Care Teams Household Refrigeration Mechanic Relationship Specialty Start Date End Date Mir Mancini MD PCP - General Family Medicine 05/25/[address] [place] [address] documented as of this encounter
--- OUTSIDE RECORDS SUMMARY | 2022-06-07 01:15 | XMS_ITS | Encounter Summary ---
:1940 Author Organization [place] [address] Care Team Providers Name Role Phone Mir Mancini MD Primary Care Provider [phone] Reason for Visit Reason Onset Date Comments Labs Only 10/24/2021 Encounter Details Date Type Department Care Team Description 10/24/2021 Telephone Rheumatology at [facility] [place] [address] Social History Tobacco Use Types Packs/Day Years Used Date Never Smoker Smokeless Tobacco: Never Used Sex Assigned at Date Recorded Not on file documented as of this encounter Miscellaneous Notes Telephone Encounter - Jc Shearer RN - 10/24/2021 1:38 PM EST Pal Milagros calls to have Standing orders faxed to [facility] lab @ [phone] Isaura Fragoso sent to Jc Shearer RN Caller: Unspecified (Yesterday, ??3:33 PM) Orders sent to [facility] documented in this encounter Plan of Treatment Upcoming Encounters Date Type Specialty Care Team Description 06/18/2022 Office Visit Rheumatology Cheryle Dai MD [facility] DR RHEUMATOLOGY [place], [place] [address] (Wo rk) documented as of this encounter Visit Diagnoses Not on filedocumented in this encounter Care Teams Barrel Washer Relationship Specialty Start Date End Date Mir Mancini MD PCP - General Family Medicine 05/25/18 [address] [facility] [address] [place] [address] documented as of this encounter
--- OUTSIDE RECORDS SUMMARY | 2022-06-07 01:15 | XMS_ITS | Clinical Summary ---
:1940 Author Organization [facility] [place] [address] Care Team Providers Name Role Phone Mir Mancini MD Primary Care Provider Allergies Active Allergy Reactions Severity Noted Date Comments Amlodipine Other (See Comments) 08/12/2011 Edema o f lower extremities Cocaine (Bulk) Other (See Comments) 08/12/2011 hypot ension Facial Mask Other (See Comments) 08/12/2011 Mold Extracts Other (See Comments) 08/12/2011 rhinit is Sulfa (Sulfonamide Rash Medium 08/12/2011 Antibiotics) Medications Medication Sig Dispensed Refills Start Date End Date Status pravastatin 40mg, PO, QPM 0 10/24/2005 Act juana (PRAVACHOL) 40 mg tablet Psyllium 0 12/26/2004 Active Seed-Sucrose (METAMUCIL) Powd [place]-3 Fatty Take 2,000 mg by 0 Active Acids-Vitamin E mouth daily. (FISH OIL) 1,000 mg Cap amlodipine (NORVASC) Take 1 tablet by 30 tablet 3 08/12/2011 Active 5 mg tablet mouth daily. magnesium 250 mg Take by mouth 0 Active Tablet daily. cholecalciferol, Take by mouth 0 Active Vitamin D3, 1,000 daily. unit Capsule losartan (COZAAR) daily. 0 01/22/2019 A ctive [address] 1 tablet 0 02/18/2019 Active (NITROSTAT) 0.4 mg under the tongue if Tablet, Sublingual needed every 5 minutes for abel... (REFER TO PRESCRIPTION NOTES). metoprolol succinate 50 mg daily. 0 02/13/2019 Active (TOPROL-XL) 100 mg Tablet Sustained Release 24 hr aspirin 81 mg Take 81 mg by mouth 0 Active Tablet, Delayed daily. Release (E.C.) omeprazole Take 1 capsule by 90 capsule 3 10/05/2019 Active (PRILOSEC) 20 mg mouth daily. Capsule, Delayed Release(E.C.) Additional Information Patient taking differently: 20 mg Oral EVERY OTHER DAY, Reported on 08/20/2021 furosemide (Lasix) 20 mg Take 20 mg by mouth 0 05/16 Active Tablet daily. colchicine (Colcrys) 0.6 mg Take 0.6 mg by mouth as 0 07/12/2021 Active Tablet needed. hydrOXYchloroQUINE TAKE 1 TABLET DAILY FOR 90 tablet 3 022 Active (Plaquenil) 200 mg Tablet DERMATOMYOSITIS metHOTREXate 2.5 mg TAKE 4 TABLETS ONCE A 48 tablet 1 10/31/19 22 Active TabletIndications: WEEK Dermatomyositis, High risk medication use folic acid (Folvite) 1 mg Take 1 tablet by mouth 90 tablet 3 0 05/09/2022 Active Tablet daily. Active Problems Problem Noted Date Adult onset dermatomyositis 08/20/2021 CAD (coronary artery disease) 08/20/2021 SOB (shortness of breath) 08/13/2021 Encounters Date Type Specialty Care Team Description 05/09/2022 Refill Rheumatology Cheryle Dai MD from Last 3 Months Social History Tobacco Use Types Packs/Day Years Used Date Never Smoker Smokeless Tobacco: Never Used Sex Assigned at Date Recorded Not on file Last Filed Vital Signs Vital Sign Reading Time Taken Comments Blood Pressure 163/53 08/20/2021 4:13 PM EST Pulse 59 08/20/2021 4:13 PM EST Temperature 36.3 ??C (97.3 ??F) 05/30/2021 11:30 AM EDT Respiratory Rate 16 05/30/2021 11:30 AM EDT Oxygen Saturation 100% 08/20/2021 4:13 PM EST Inhaled Oxygen Concentration - - Weight 82.1 kg (181 lb) 08/20/2021 4:13 PM EST Height 147.3 cm (4' 10) 08/20/2021 4:13 PM EST Body Mass Index 37.83 08/20/2021 4:13 PM EST Plan of Treatment Upcoming Encounters Date Type Specialty Care Team Description 06/18/2022 Office Visit Rheumatology Cheryle Dai MD [facility] ER DR [facility]OLOGY [facility] . [facility] [place] [address] (Wo rk) Health Maintenance Due Date Last Done Comments Covid-19 Vaccine (#1) 1945 Hepatitis C Screening 1960 Tdap adult 1961 Tetanus vaccine 1961 Zoster vaccine (1 of 2) 1992 Advance Directive 1997 Pneumoccocal Vaccine: 65+ (1 - PCV) 2007 Influenza (Flu) vaccine (1 of 1 - Influenza standard 05/30/2022 series) Bone Density Scan Completed 07/20/2019 Insurance Payer Benefit Plan / Subscriber ID Effective Dates Phone Addre ss Type Group CIGNA MANAGED CIGNA TRUE [id number] 2003-[employer] [phone] PO NICKI X MEDICARE CHOICE MANAGED t 8 [id number] [place] [address] Care Teams Contract Writer Relationship Specialty Start Date End Date Mir Mancini MD PCP - General Family Medicine 05/25/[address] [place] [id number]
--- OUTSIDE RECORDS SUMMARY | 2022-06-07 01:15 | XMS_ITS | Encounter Summary ---
:1940 Author Organization [facility] [place] [address] Care Team Providers Name Role Phone Mir Mancini MD Primary Care Provider [phone] Reason for Visit Reason Onset Date Comments Labs Only 04/04/2021 Encounter Details Date Type Department Care Team Description 04/04/2021 Telephone Rheumatology at [facility] [place] [address] Social History Tobacco Use Types Packs/Day Years Used Date Never Smoker Smokeless Tobacco: Never Used Sex Assigned at Date Recorded Not on file documented as of this encounter Miscellaneous Notes Telephone Encounter - Yoseph Becerra RN - 04/04/2021 3:27 PM EDT Patient updated on message from provider, expressed understanding. Patient inquires about echo, appears to be for [facility], will route message to scheduling. Telephone Encounter - Yoseph Becerra RN - 04/04/2021 11:30 AM EDT Called patient. Left vm with call back number provided. Telephone Encounter - Yoseph Becerra RN - 04/04/2021 11:30 AM EDT ----- Message from Cheryle Dai MD sent at 04/03/2021 8:32 AM EDT ----- Please let her know--minimally low on iron. I would recommend she check in with her PCP regarding need for replacement versus further work up of this as he may already be aware. Thank you. Cheryle ----- Message ----- From: Gama, Tip Cutter Sent: 03/30/2021 3:12 PM EDT To: Cheryle Dai MD documented in this encounter Plan of Treatment Upcoming Encounters Date Type Specialty Care Team Description 06/18/2022 Office Visit Rheumatology Cheryle Dai MD [facility] RHEUMATOLOGY [place], [place] [address] (Wo rk) documented as of this encounter Visit Diagnoses Not on filedocumented in this encounter Care Teams Cardiopulmonary Physical Therapist Relationship Specialty Start Date End Date Mir Mancini MD PCP - General Family Medicine 05/25/[address] [place] [address] documented as of this encounter
--- OUTSIDE RECORDS SUMMARY | 2022-06-07 01:15 | XMS_ITS | Encounter Summary ---
:1940 Author Organization [facility] [place] [address] Care Team Providers Name Role Phone Mir Mancini MD Primary Care Provider [phone] Encounter Details Date Type Department Care Team Description 07/20/2019 Laboratory Appointment Lab 3L [facility] [place] Dermatomyositis; [facility] [place] [id number] Social History Tobacco Use Types Packs/Day Years Used Date Never Smoker Smokeless Tobacco: Never Used Sex Assigned at Date Recorded Not on file documented as of this encounter Plan of Treatment Upcoming Encounters Date Type Specialty Care Team Description 06/18/2022 Office Visit Rheumatology Cheryle Dai MD [facility] ER DR RHEUMATOLOGY DEP [place], [place] [address] (Wo rk) documented as of this encounter Procedures Procedure Name Priority Date/Time Associated Comments Diagnosis HC C-REACTIVE PROTEIN Routine 07/20/2019 11:11 Dermatomy ositis Results for this AM EDT High risk procedure are i n medication use the results section. HEMOGRAM Routine 07/20/2019 11:11 Dermatomyositis Results for this AM EDT High risk procedure are i n medication use the results section. DIFFERENTIAL, Routine 07/20/2019 11:11 Dermatomyositis Results for this AUTOMATED AM EDT High risk procedure are i n medication use the results section. HC ESR-SEDIMENTATION Routine 07/20/2019 11:11 Dermatomyo sitis Results for this RATE, BLOOD AM EDT High risk procedure are i n medication use the results section. HC CBC,PLT & AUTO DIFF Routine 07/20/2019 11:11 Dermatom yositis AM EDT High risk medication use HC CREATINE Routine 07/20/2019 11:11 Dermatomyositis Results for this PHOSPHOKINASE, SERUM AM EDT High risk procedu re are in medication use the results section. COMPREHENSIVE Routine 07/20/2019 11:11 Dermatomyositis Results for this METABOLIC PANEL AM EDT High risk procedure ar e in (NON-FASTING) medication use the results section. documented in this encounter Results Differential, Automated (07/20/2019 11:11 AM EDT) athologist Signature Neutrophils % 57.1 % [facility] Neutr Abs (ANC) 2.54 1.70 - [facility] 6.10 [facility] x10(3)[facility] LABORATORY Lymphocytes % 30.3 % [facility] Lymphocytes Abs 1.4 0.9 - 3.[address] [facility] x10(3)/[facility] LABORATORY Monocytes % 10.1 % [facility] Monocyte Abs 0.4 0.3 - 0.[address] [facility] x10(3)/[facility] LABORATORY Eosinophils % 1.6 % [facility] Eosinophils Abs 0.1 0.0 - 0.[address] [facility] x10(3)/[facility] LABORATORY Basophils % 0.7 % [facility] Basophils Abs 0.0 0.0 - 0.[address] [facility] x10(3)/[facility] LABORATORY Immature Gran % 0.20 % [facility] Comment: Immature granulocytes(IG's)percentage an d absolute count will include metamyelocytes, myelocytes, and promyelo cytes. Blood smears from CBCs yielding IG's will be scanned manually for concor dance. If this scan disagrees with the automated IG or if promyelocytes are not ed, a manual differential will be performed. Alise Gran Abs 0.01 0.00 - 0.04 x10(3)/[facility] LABORATORY Specimen Anatomical Collection Method Collection Time Receive d Time (Source) Location / / Volume Laterality Blood specimen 07/20/2019 11:11 9 (specimen) AM EDT 11:19 AM EDT Resulting Agency Comment Spec In Lab Cheryle Dai MD HEMATOLOGY ORDERABLES Performing Organization Address City/State/[place] [address] (ABNORMAL) Hemogram (07/20/2019 11:11 AM EDT) Analysis Performed At Patho logist Time Signature WBC 4.4 4.0 - 9.5 [facility] x[facility] LABORATORY RBC 3.96 (L) 4.00 - [place] 5.21 [facility] x10(6)/[facility] LABORATORY Hemoglobin 11.7 11.7 - [place] 15.5 gm/dL [facility] LABORATORY Hematocrit 35.6 (L) 35.7 - [facility] 45.8 % [facility] LABOR[facility]ORY MCV 89.9 82.6 - [facility] 94.4 [facility] LABORATORY MCH 29.5 27.1 - [place] 32.0 pg [facility] MCHC 32.9 31.7 - [place] 35.0 gm/dL [facility] Platelets 193 145 - [address] [facility] x10(3)/[facility] LABORATORY RDWSD 42.3 37.0 - [facility] [place] 46.0 [facility] LABORATORY RDWCV 12.9 11.5 - [place] 14.1 % [facility] LABORATORY MPV 11.2 7.6 - 12.9 [facility] [place] [facility] LABORATORY nRBC % Auto 0.0 % [facility] nRBC Abs Auto 0.000 0.000 - [place] 0.000 [facility] x10(3)/[facility] LABORATORY Specimen Anatomical Collection Method Collection Time Receive d Time (Source) Location / / Volume Laterality Blood specimen 07/20/2019 11:11 9 (specimen) AM EDT 11:19 AM EDT Resulting Agency Comment Spec In Lab Cheryle Dai MD HEMATOLOGY ORDERABLES Performing Organization Address City/State/[place] [address] Comprehensive metabolic panel (non-fasting) (07/20/2019 11:11 AM EDT) athologist Signature Glucose Lvl 91 65 - [address] [facility] mg/dL [facility] Comment: Diabetes: >=200 mg/dL plus symp toms BUN 18 8 - 18 mg/dL [facility] Creatinine 0.73 0.70 - 1.20 mg/dL [facility]OR[facility]ORY Sodium 140 135 - 145 mmol/L [facility] Potassium 4.7 3.5 - 5.0 mmol/L [facility] Comment: Please note: ??Patients with WBC >100,00 0 may have falsely elevated Potassium levels. ??For accurate Potassium quantif ication in these patients send serum separator tube (gold top) for subsequent determinations. ??Contact the Clinical Chemistry Laboratory if there are any qu estions. Chloride 102 98 - 107 mmol/L [facility] CO2 29 22 - 31 mmol/L [facility] Anion Gap 9 5 - 15 mmol/L [facility] LABORATORY Calcium 9.7 8.5 - 10.5 mg/dL [facility] Total Protein 7.0 6.1 - 8.0 gm/dL [facility] Albumin 4.6 3.2 - 5.2 gm/dL [facility] AST 22 0 - 30 unit/L [facility] ALT 13 0 - 30 unit/L [facility] Alk Phos 46 35 - 105 unit/L [facility] Total Bilirubin 0.5 0.2 - 1.3 mg/dL [facility] Estimated GFR 79 >=60 mL/min/1.73 m?? [facility] Comment: The eGFR was calculated using the CKD-EP I equation. As with all creatinine based estimates of kidney function, eGFR values calculated with the CKD-EPI equation are not accurate in patients wi th acute kidney failure, extremes of body mass or the acutely ill. [email or web address]/[facility] HUGOnkf eGFR 92 >=60 mL/min/1.73 m?? [facility] Comment: The eGFR was calculated using the CKD-EP I equation. As with all creatinine based estimates of kidney function, eGFR values calculated with the CKD-EPI equation are not accurate in patients wi th acute kidney failure, extremes of body mass or the acutely ill. [email or web address]/[facility] Specimen Anatomical Collection Method Collection Time Receive d Time (Source) Location / / Volume Laterality Blood specimen 07/20/2019 11:11 9 (specimen) AM EDT 11:19 AM EDT Resulting Agency Comment Spec In Lab Cheryle Dai MD CHEMISTRY ORDERABLES Performing Organization Address City/[facility] Phon e Number [address] (ABNORMAL) Sedimentation rate (07/20/2019 11:11 AM EDT) P athologist Signature Sed Rate 36 (H) 0 - [address] [facility] mm/hr [facility] LABOR[facility]ORY Specimen Anatomical Collection Method Collection Time Receive d Time (Source) Location / / Volume Laterality Blood specimen 07/20/2019 11:11 9 (specimen) AM EDT 11:19 AM EDT Resulting Agency Comment Spec In Lab Cheryle Dai MD HEMATOLOGY ORDERABLES Performing Organization Address [facility] [place] [address] CRP, acute inflammation (07/20/2019 11:11 AM EDT) P athologist Signature CRP 0.5 <=4.9 mg/L [facility] Specimen Anatomical Collection Method Collection Time Receive d Time (Source) Location / / Volume Laterality Blood specimen 07/20/2019 11:11 9 (specimen) AM EDT 11:19 AM EDT Resulting Agency Comment Spec In Lab Cheryle Dia MD CHEMISTRY ORDERABLES Performing Organization Address City/[facility] [place] [address] (ABNORMAL) CK (07/20/2019 11:11 AM EDT) P athologist Signature CK, Total 181 (H) 0 - [address] [facility] unit/L [facility] Specimen Anatomical Collection Method Collection Time Receive d Time (Source) Location / / Volume Laterality Blood specimen 07/20/2019 11:11 9 (specimen) AM EDT 11:19 AM EDT Resulting Agency Comment Spec In Lab Cheryle Dai MD CHEMISTRY ORDERABLES Performing Organization Address City/State/[place] [address] documented in this encounter Visit Diagnoses Diagnosis Dermatomyositis High risk medication use Encounter for long-term (current) use of other medications documented in this encounter Care Teams [employer] Relationship Specialty Start Date End Date Mir Mancini MD PCP - General Family Medicine 05/25/[address] [place] [address] documented as of this encounter
--- OUTSIDE RECORDS SUMMARY | 2022-06-07 01:15 | XMS_ITS | Encounter Summary ---
:1940 Author Organization [facility] [place] [address] Care Team Providers Name Role Phone Mir Mancini MD Primary Care Provider [phone] Reason for Visit Reason Comments Medication Refill Encounter Details Date Type Department Care Team Description 10/19/2021 Refill Rheumatology at [facility] Cheryle Dai MD [facility] [place] [phone] RHEUMATOLOGY DEPT. [phone] [place], [place] [address] (Wo rk) Social History Tobacco Use Types Packs/Day Years Used Date Never Smoker Smokeless Tobacco: Never Used Sex Assigned at Date Recorded Not on file documented as of this encounter Plan of Treatment Upcoming Encounters Date Type Specialty Care Team Description 06/18/2022 Office Visit Rheumatology Cheryle Dai MD [facility] RHEUMATOLOGY DEP [place], [place] [address] (Wo rk) documented as of this encounter Visit Diagnoses Not on filedocumented in this encounter Care Teams [employer] Relationship Specialty Start Date End Date Mir Mancini MD PCP - General Family Medicine 05/25/[address] [place] [address] documented as of this encounter
--- OUTSIDE RECORDS SUMMARY | 2022-06-07 01:15 | XMS_ITS | Encounter Summary ---
:1940 Author Organization [facility] [place] [address] Care Team Providers Name Role Phone Mir Mancini MD Primary Care Provider [phone] Reason for Visit Reason Onset Date Comments Labs Only 05/08/2020 Encounter Details Date Type Department Care Team Description 05/08/2020 Telephone Rheumatology at [facility] [place]oseph [place] [address] Social History Tobacco Use Types Packs/Day Years Used Date Never Smoker Smokeless Tobacco: Never Used Sex Assigned at Date Recorded Not on file documented as of this encounter Miscellaneous Notes Telephone Encounter - Yoseph Becerra RN - 05/17/2020 2:35 PM EDT Attempted to contact patient, no answer, will mail results. Telephone Encounter - Yoseph Becerra RN - 05/08/2020 1:47 PM EDT Called patient regarding labs. Unavailable. No voice mail box set up. Telephone Encounter - Yoseph Becerra RN - 05/08/2020 1:45 PM EDT ----- Message from Cheryle Dai MD sent at 05/05/2020 5:33 PM EDT ----- I received the results of a urine test. It was normal. Please let her know. Thank you. ----- Message ----- From: Gama, Bomb Squad Commander Sent: 05/05/2020 4:49 PM EDT To: Cheryle Dai MD documented in this encounter Plan of Treatment Upcoming Encounters Date Type Specialty Care Team Description 06/18/2022 Office Visit Rheumatology Cheryle Dai MD [facility] DR RHEUMATOLOGY [place], [place] [address] (Wo rk) documented as of this encounter Visit Diagnoses Not on filedocumented in this encounter Care Teams Physicist Astrophysics Relationship Specialty Start Date End Date Mir Mancini MD PCP - General Family Medicine 05/25/[address] [place] [address] [address] [place] [address] documented as of this encounter
--- OUTSIDE RECORDS SUMMARY | 2022-06-07 01:16 | XMS_ITS | Encounter Summary ---
:1940 Author Organization [facility] Address [place] [id number] Care Team Providers Name Role Phone Mir Mancini MD Primary Care Provider [phone] Encounter Details Date Type Department Care Team Description 07/20/2019 Office Visit Rheumatology at [facility] Cheryle Dai Dermatomyositis; [facility] MD [place] [address] [phone] RHE[address]PT. [place] [address] Social History Tobacco Use Types Packs/Day Years Used Date Never Smoker Smokeless Tobacco: Never Used Sex Assigned at Date Recorded Not on file documented as of this encounter Last Filed Vital Signs Vital Sign Reading Time Taken Comments Blood Pressure 148/47 07/20/2019 11:26 AM EDT Pulse 57 07/20/2019 11:26 AM EDT Temperature 36.4 ??C (97.5 ??F) 07/20/2019 11:26 AM EDT Respiratory Rate - - Oxygen Saturation 99% 07/20/2019 11:26 AM EDT Inhaled Oxygen Concentration - - Weight 83 kg (183 lb) 07/20/2019 11:26 AM EDT Height 149.9 cm (4' 11) 07/20/2019 11:26 AM EDT Body Mass Index 36.96 07/20/2019 11:26 AM EDT documented in this encounter Progress Notes Cheryle Dai MD - 07/20/2019 11:30 AM EDT Former pt of Shelly Alcaraz followed for dermatomyositis Cc: thigh pain HPI: She has some quad pain and stiffness [...] infections. She has some burning in her lowerintestines, she gets some gas worse with HCQ. [...] 04/2018, then to 08/2018 23, CK went [id number] over the same time (inverse relationship). [...] FH: No other relavant autoimmune PE: BP 148/47 Pulse 57 Temp 36.4 ??C (97.5 ??F) (Oral) Ht 149.9 cm (4' 11) Wt 83 kg (183 lb) SpO2 99% BMI 36.96 kg/m?? Alert and pleasant in NAD, climbs onto the exam table without difficulty Skin: plethoric complexion chest is somewhat red-was outside,not clearly dermato rash. Plethoric cheeks Sclera anicteric, conjunctiva not injected Nares without d/c O/p Moist no lesions, ulcers or thrush Neck: no cervical adenopathy Lungs: CTAB Heart RRR no mrg Abd: Active bs, soft, nt, nd no masses or organomegaly appreciated Ext: no c/c/e pulses 2+ and symmetric at DP and radial MS: neck and spine: Full range of motion, although somewhat limited in [id number], and there is nostep-offs Shoulders: She has some tenderness in extremes [...] planus Neuro: grossly non-focal UE 5/5, LE 4+ in hip flexors Labs/studies: See HPI Impression/Recommendations: This very pleasant 78-year-old woman transferring her care from Dr. Shelly Alcaraz. 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 She also has a history of some modestly elevated CKs. Sheis primarily treated with prednisone in the past, and is on hydroxychloroquine and methotrexate currently. She is tolerating both these medications without significant side effects and actually feels better since the addition of the hydroxychloroquine, but she attributes increased gas and GI dsitress to this medication-which is posisble. 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 She feels that her current level of control is adequate. Other considerations could include injection of the subacromial bursa. #Methotrexate 7.5 mg weekly #Folic acid 1 mg daily #Hydroxychloroquine-decreased to 200mg daily for GI sx # consider cardiac testing-she is not having chest pain but does have some shortness of breath with exertion that could either be deconditioning but considering her age and history of prednisone use and other risk factors including hypertension and weight would recommend she discuss cardiac evaluation with her PCP--she has some sx radiating into neck but not clearly related to activity. #DEXA completed today-report pending documented in this encounter Plan of Treatment Upcoming Encounters Date Type Specialty Care Team Description 06/18/2022 Office Visit Rheumatology Cheryle Dai MD [facility] DR RHEUMATOLOGY DEP [place], [place] [address] (Wo rk) documented as of this encounter Results (ABNORMAL) CK (07/20/2019 11:11 AM EDT) athologist Signature CK, Total 181 (H) 0 - 160 [facility] Specimen Anatomical Collection Method Collection Time Receive d Time (Source) Location / / Volume Laterality Blood specimen 07/20/2019 11:11 9 (specimen) AM EDT 11:19 AM EDT Resulting Agency Comment Spec In Lab Cheryle Dai MD CHEMISTRY ORDERABLES Performing Organization Address City/State/[place] [address] CRP, acute inflammation (07/20/2019 11:11 AM EDT) athologist Signature CRP 0.5 <=4.9 mg/L [facility] Specimen Anatomical Collection Method Collection Time Receive d Time (Source) Location / / Volume Laterality Blood specimen 07/20/2019 11:11 9 (specimen) AM EDT 11:19 AM EDT Resulting Agency Comment Spec In Lab Cheryle Dai MD CHEMISTRY ORDERABLES Performing Organization Address City/[facility]/[place] [address] (ABNORMAL) Sedimentation rate (07/20/2019 11:11 AM EDT) P athologist Signature Sed Rate 36 (H) 0 - 20 [facility] mm/hr [facility] LABORATORY Specimen Anatomical Collection Method Collection Time Receive d Time (Source) Location / / Volume Laterality Blood specimen 07/20/2019 11:11 9 (specimen) AM EDT 11:19 AM EDT Resulting Agency Comment Spec In Lab Cheryle Dai MD HEMATOLOGY ORDERABLES Performing Organization Address City/[facility]/[place] [address] Comprehensive metabolic panel (non-fasting) (07/20/2019 11:11 AM EDT) P athologist Signature Glucose Lvl 91 65 - 199 [facility] mg/dL [facility] Comment: Diabetes: >=200 mg/dL plus symp toms BUN 18 8 - 18 mg/dL [facility] Creatinine 0.73 0.70 - 1.20 mg/dL [facility] Sodium 140 135 - 145 mmol/L [facility] Potassium 4.7 3.5 - 5.0 mmol/L [facility] Comment: Please note: ??Patients with WBC >100,00 0 may have falsely elevated Potassium levels. ??For accurate Potassium quantif ication in these patients send serum separator tube (gold top) for subsequent determinations. ??Contact the Clinical Chemistry Laboratory if there are any qu estions. Chloride 102 98 - 107 mmol/L [facility] CO2 29 22 - 31 mmol/L [facility] Anion Gap 9 5 - 15 mmol/L [facility] Calcium 9.7 8.5 - 10.5 mg/dL [facility] Total Protein 7.0 6.1 - 8.0 gm/dL [facility] Albumin 4.6 3.2 - 5.2 gm/dL [facility] AST 22 0 - 30 unit/L [facility] ALT 13 0 - 30 unit/L [facility] Alk Phos 46 35 - 105 unit/L [facility] Total Bilirubin 0.5 0.2 - 1.3 mg/dL [facility] Estimated GFR 79 >=60 mL/min/1.73 m?? [facility] Comment: The eGFR was calculated using the CKD-EP I equation. As with all creatinine based estimates of kidney function, eGFR values calculated with the CKD-EPI equation are not accurate in patients wi th acute kidney failure, extremes of body mass or the acutely ill. [email or web address]/[facility] MIAMInkf eGFR 92 >=60 mL/min/1.73 m?? [facility] Comment: The eGFR was calculated using the CKD-EP I equation. As with all creatinine based estimates of kidney function, eGFR values calculated with the CKD-EPI equation are not accurate in patients wi th acute kidney failure, extremes of body mass or the acutely ill. [email or web address] MIAMInkf Specimen Anatomical Collection Method Collection Time Receive d Time (Source) Location / / Volume Laterality Blood specimen 07/20/2019 11:11 9 (specimen) AM EDT 11:19 AM EDT Resulting Agency Comment Spec In Lab Cheryle Dai MD CHEMISTRY ORDERABLES Performing Organization Address City/State/[place] [address] documented in this encounter Visit Diagnoses Diagnosis Dermatomyositis High risk medication use Encounter for long-term (current) use of other medications documented in this encounter Care Teams Melter Caster Relationship Specialty Start Date End Date Mir Mancini MD PCP - General Family Medicine 05/25/18 [address] [place] [address] documented as of this encounter
--- OUTSIDE RECORDS SUMMARY | 2022-06-07 01:16 | XMS_ITS | Encounter Summary ---
:1940 Author Organization [facility] [place] [address] Care Team Providers Name Role Phone Mir Mancini MD Primary Care Provider [phone] Reason for Referral Diagnostic Test (Routine) - Closed Specialty Diagnoses / Procedures Referred By Contact Refer red To Contact Radiology Diagnoses Asymptomatic menopausal state History of corticosteroid therapy Cheryle Dai MD [facility] Rad Xray Procedures DXA Central-Spine, Hip, And/Or Whole Body (Generic) [facility] [address] [facility] [place] [address] [place] [address] Referral ID Status Reason Start Date Expiration Date Visits V isits Requested Authorized [id number] Closed Specialty 03/22/2019 03/21/2020 1 1 Service Requested Reason for Visit Consultation (Routine) - Closed Specialty Diagnoses / Procedures Referred By Contact Refer red To Contact Rheumatology Diagnoses Dermatomyositis Shelly Alcaraz MD [facility] Rheumatology [address] [place] [address] [place] [address] [place] [address] [place] [address] Referral ID Status Reason Start Date Expiration Date Visits Requ ested Visits Authorized [id number] Closed 02/05/2019 02/05/2020 1 1 Encounter Details Date Type Department Care Team Description 03/22/2019 Office Visit Rheumatology at [facility] Cheryle Dai Dermatomyositis; [facility] [place] High risk medication use; [facility] History of corticosteroid th erapy; [place] [address] CENTER Asymptomatic menopausal state [phone] [place] [address] Social History Tobacco Use Types Packs/Day Years Used Date Never Smoker Smokeless Tobacco: Never Used Sex Assigned at Date Recorded Not on file documented as of this encounter Last Filed Vital Signs Vital Sign Reading Time Taken Comments Blood Pressure 152/43 03/22/2019 2:54 PM EDT Pulse 58 03/22/2019 2:54 PM EDT Temperature 36.7 ??C (98 ??F) 03/22/2019 2:54 PM EDT Respiratory Rate - - Oxygen Saturation 99% 03/22/2019 2:54 PM EDT Inhaled Oxygen Concentration - - Weight 83 kg (183 lb) 03/22/2019 2:54 PM EDT Height 149.9 cm (4' 11) 03/22/2019 2:54 PM EDT Body Mass Index 36.96 03/22/2019 2:54 PM EDT documented in this encounter Progress Notes Cheryle Dai MD - 03/22/2019 3:00 PM EDT Referred by: Shelly Alcaraz For consultation and evaluation of: assume care for dermatomyositis I have reviewed the provided records, pertinent records available in the [facility] medical record and anyforms completed by the patient. These have been scanned into the medical record for future review. Cc: some gnawing pain in her shoulder back and hips HPI: She has some morning stiffness. She gets [...] 04/2018, then to 08/2018 23, CK went [id number] over the same time (inverse relationship). [...] or infections. She endorses carpal tunnel symptoms. ROS: No Raynaud's No sicca No malar rash No sun sensitivity No patchy alopecia or hair loss No DAWSON No vision change, red painful or swollen eyes No hearing loss or ear pain No epistaxis, no sinusitis or ulcers No oral ulcers or thrush No CP or palpitations No abdominal pain or GI complaints including nausea, vomiting, diarrhea or constipation No urinary complaints No rashes or bruising No focal or global weakness No fevers, chills, sweats or adenopathy No infections No unintentional weight loss or excessive fatigue Mood is stable Medications and allergies reviewed PMH: HTN Obesity B KISHA --2015, 2018 first for AVN GERD SH: , 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 Alert and pleasant in NAD Skin: plethoric complexion chest is somewhat red-was [...] range of motion, although somewhat limited in [id number]-ma-hmrn, and there is nostep-offs Shoulders: She has some tenderness in extremes of internal and external rotation, and she is got a sub-acromial bursitis bilaterally Elbows: Within normal limits Wrists: Within normal limits Hands: No synovitis or swelling there is modest tenderness in the PIPs and DIPs, she had very modestdilatation and capillary dropout Hips: Full range of motion Knees: Full range of motion no effusions redness or warmth Ankles: Full range of motion no effusion redness or warmth Feet: early bunions and pes planus Neuro: grossly non-focal UE 5/5, LE 4+ in hip flexors, some difficulty with toe walking on the right. Labs/studies: See HPI Impression/Recommendations: This very pleasant [...] since the addition of the hydroxychloroquine. 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 Will update her her labs today, and plan on seeing her back in 3 months. She feels that her current level of control is adequate. Other considerations could include injection of the subacromial bursa. #Methotrexate 7.5 mg weekly #Folic acid 1 mg daily #Hydroxychloroquine 400 mg daily # consider cardiac testing-she is not having chest pain but does have some shortness of breath with exertion that could either be deconditioning but considering her age and history of prednisone use and other risk factors including hypertension and weight would recommend she discuss cardiac evaluation with her PCP. #Consider injecting subacromial bursa if she continues to have pain there. #She reports she has not had a DEXA in some time and considering the amount of prednisone she is having she is menopausal would assess for osteoporosis Thank you for this interesting referral. Please do not hesitate to contact me if you have any questions or concerns. documented in this encounter Plan of Treatment Upcoming Encounters Date Type Specialty Care Team Description 06/18/2022 Office Visit Rheumatology Cheryle Dai MD [facility] [address] RHEUMATOLOGY DEP [place], [place] [address] (Wo rk) documented as of this encounter Procedures Procedure Name Priority Date/Time Associated Comments Diagnosis CRP, ACUTE Routine 03/22/2019 4:20 PM Dermatomyosit is Results for this INFLAMMATION EDT High risk procedure are i n medication use the results section. HEMOGRAM Routine 03/22/2019 4:20 PM Dermatomyosit is Results for this EDT High risk procedure are i n medication use the results section. DIFFERENTIAL, Routine 03/22/2019 4:20 PM Dermatomyosit is Results for this AUTOMATED EDT High risk procedure are i n medication use the results section. SEDIMENTATION RATE Routine 03/22/2019 4:20 PM Dermatomyo sitis Results for this EDT High risk procedure are i n medication use the results section. CBC (WITH DIFF) Routine 03/22/2019 4:20 PM Dermatomyosit is EDT High risk medication use CK Routine 03/22/2019 4:20 PM Dermatomyosit is Results for this EDT High risk procedure are i n medication use the results section. COMPREHENSIVE Routine 03/22/2019 4:20 PM Dermatomyosit is Results for this METABOLIC PANEL EDT High risk procedure ar e in (NON-FASTING) medication use the results section. documented in this encounter Results DXA Central Spine, Hip, and/or Whole Body (Generic) (07/20/2019 11:01 AM EDT) Anatomical Region Laterality Modality C-spine, Hip N/A Other Specimen (Source) Anatomical Location Collection Method / Collectio n Time Received Time / Laterality Volume Impressions 07/23/2019 9:23 AM EDT The measurements fulfill the WHO classification for normal. Estimating Fracture Risk: ? The relationship between bone mineral de nsity (BMD) and risk of fracture is well established. As BMD decreases, risk incr eases. Quantifying risk is difficult and is usually limited to estimation of the relative risk - a term which may have limited value when trying to discuss an individual's risk. Estimating the absolute risk for a patient requires an understanding of the incidence rate in a given population and consideration of mu ltiple, partially independent, risk factors in addition to BMD. ? The World Health Organization (WHO) has developed a fracture risk prediction tool that calculates a ten-year risk of major osteoporotic fracture based on femoral neck bone density measurements a nd nine clinical risk factors for individuals who have not been treated fo r osteoporosis. This is available through an interactive web-based interfa ce (http://www.shef.ac.uk/FRAX/) and can be used to estimate a given patient's ab solute risk of major osteoporotic fracture or hip fracture over the next 1 0 years. These estimates may prove useful when discussing risk with a patie nt. It is important, however, to understand the tool's limitations and ho w a given individual's risk might differ from the tool's estimate. The tool does not take into account the dose-response associated with most risk factors. For e xample, the significant increase in risk associated with multiple prior fractures compared to a single prior fracture is not taken into account. Similarly, the l ocation of a previous fracture, the amount of glucocorticoids and number of cigarettes smoked are not considered. These limitations are discussed in a Fr equently Asked Questions section of the FRAX website which you are encouraged to review. ? DEXA data sheets with BMD measurements a nd plots are available in [employer] under the imaging tab. Paper copies will be sent to providers without [employer] access. If you have received this report without th e data sheet and do not have access to [facility], please contact Radiology [facility] at [phone] Friday thru Friday 8am-4pm. Thank you for letting us participate in the care of this patient. For questions regarding this report, please contact e number below. ? Electronically signed by: Mayela Subramanian [facility] ([phone]), at 07/23/2019 9:23 AM Narrative 07/23/2019 9:23 AM EDT EXAMINATION: DXA CENTRAL SPINE, HIP, AND/OR WHOLE BODY (GENERIC) CLINICAL HISTORY: Menopausal woman with history of prednisone use, ,entered by ordering service TECHNIQUE: Scans were acquired at the hannah mbar spine, and left forearm. We excluded the hip measurements because of bilateral hip arthroplasties. COMPARISON: none FINDINGS: Lowest T-score at a diagnostic region of interest: T-score: -0.7, TANNA: Distal 1/3 radius, W HO diagnosis: Normal Procedure Note Mayela Subramanian MD - 07/23/2019Formatt ing of this note might be different from the original. EXAMINATION: DXA CENTRAL SPINE, HIP, AND /OR WHOLE BODY (GENERIC) CLINICAL HISTORY: Menopausal woman with history of prednisone use, ,entered by ordering service TECHNIQUE: Scans were acquired at the hannah mbar spine, and left forearm. We excluded the hip measurements because of bilateral hip arthroplasties. COMPARISON: none FINDINGS: Lowest T-score at a diagnostic region of interest: T-score: -0.7, TANNA: Distal 1/3 radius, W HO diagnosis: Normal IMPRESSION The measurements fulfill the WHO classi fication for normal. Estimating Fracture Risk: ? The relationship between bone mineral de nsity (BMD) and risk of fracture is well established. As BMD decreases, risk incr eases. Quantifying risk is difficult and is usually limited to estimation of the relative risk - a term which may have limited value when trying to discuss an individual's risk. Estimating the absolute risk for a patient requires an understanding of the incidence rate in a given population and consideration of mu ltiple, partially independent, risk factors in addition to BMD. ? The World Health Organization (WHO) has developed a fracture risk prediction tool that calculates a ten-year risk of major osteoporotic fracture based on femoral neck bone density measurements a nd nine clinical risk factors for individuals who have not been treated fo r osteoporosis. This is available through an interactive web-based interfa ce (http://www.shef.ac.uk/FRAX/) and can be used to estimate a given patient's ab solute risk of major osteoporotic fracture or hip fracture over the next 1 0 years. These estimates may prove useful when discussing risk with a patie nt. It is important, however, to understand the tool's limitations and ho w a given individual's risk might differ from the tool's estimate. The tool does not take into account the dose-response associated with most risk factors. For e xample, the significant increase in risk associated with multiple prior fractures compared to a single prior fracture is not taken into account. Similarly, the l ocation of a previous fracture, the amount of glucocorticoids and number of cigarettes smoked are not considered. These limitations are discussed in a Fr equently Asked Questions section of the FRAX website which you are encouraged to review. ? DEXA data sheets with BMD measurements a nd plots are available in [employer] under the imaging tab. Paper copies will be sent to providers without [employer] access. If you have received this report without th e data sheet and do not have access to [employer], please contact Radiology Transcrip tion at [phone] Friday thru Friday 8am-4pm. Thank you for letting us participate in the care of this patient. For questions regarding this report, please contact e number below. Electronically signed by: Mayela Subramanian [facility] ([phone]), at 07/23/2019 9:23 AM Cheryle Dai MD IMG DEXA ORDERABLES Differential, Automated (03/22/2019 4:20 PM EDT) athologist Signature Neutrophils % 60.9 % [facility] Neutr Abs (ANC) 3.50 1.70 - [facility] 6.10 [facility] x10(3)/[facility] LABORATORY Lymphocytes % 30.0 % [facility] Lymphocytes Abs 1.7 0.9 - 3.2 [facility] x10(3)/[facility] LABORATORY Monocytes % 6.8 % [facility] Monocyte Abs 0.4 0.3 - 0.9 [facility] x10(3)/[facility] LABORATORY Eosinophils % 1.6 % [facility] Eosinophils Abs 0.1 0.0 - 0.4 [facility] x10(3)/[facility] LABORATORY Basophils % 0.5 % [facility] Basophils Abs 0.0 0.0 - 0.1 [facility] x10(3)/[facility] LABORATORY Immature Gran % 0.20 % [facility] Comment: Immature granulocytes(IG's)percentage an d absolute count will include metamyelocytes, myelocytes, and promyelo cytes. Blood smears from CBCs yielding IG's will be scanned manually for concor dance. If this scan disagrees with the automated IG or if promyelocytes are not ed, a manual differential will be performed. Alise Gran Abs 0.01 0.00 - 0.04 x10(3)/[facility] LABORATORY Specimen Anatomical Collection Method Collection Time Receive d Time (Source) Location / / Volume Laterality Blood specimen 03/22/2019 4:20 PM 019 4:31 (specimen) EDT PM EDT Resulting Agency Comment Spec In Lab Cheryle Dai MD HEMATOLOGY ORDERABLES Performing Organization Address City/State/Z[place] [address] (ABNORMAL) Hemogram (03/22/2019 4:20 PM EDT) Analysis Performed At Patho logist Time Signature WBC 5.7 4.0 - 9.5 [facility] x[facility](3[facility] LABORATORY RBC 3.93 (L) 4.00 - [place] 5.21 [facility] x10(6)/[facility] LABORATORY Hemoglobin 11.6 (L) 11.7 - [facility] 15.5 gm/dL [facility] LABORATORY Hematocrit 35.4 (L) 35.7 - [facility] 45.8 % [facility] LABORATORY MCV 90.1 82.6 - [facility] 94.4 [facility] LABORATORY MCH 29.5 27.1 - [facility] 32.0 pg [facility] LABORATORY MCHC 32.8 31.7 - [facility] 35.0 gm/dL [facility] LABORATORY Platelets 202 145 - 357 [facility] x10(3)/[facility] LABORATORY RDWSD 41.1 37.0 - [facility] 46.0 [facility] LABORATORY RDWCV 12.7 11.5 - [facility] MARIAJOSE 14.1 % [facility] LABORATORY MPV 10.9 7.6 - 12.9 [facility] LABORATORY nRBC % Auto 0.0 % [facility] LAB[facility] nRBC Abs Auto 0.000 0.000 - [facility] 0.000 [facility] x10(3)/[facility] LABORATORY Specimen Anatomical Collection Method Collection Time Receive d Time (Source) Location / / Volume Laterality Blood specimen 03/22/2019 4:20 PM 019 4:31 (specimen) EDT PM EDT Resulting Agency Comment Spec In Lab Cheryle Dai MD HEMATOLOGY ORDERABLES Performing Organization Address City/State/ZIP [place] [address] (ABNORMAL) CK (03/22/2019 4:20 PM EDT) P athologist Signature CK, Total 238 (H) 0 - 160 [facility] unit/L [facility] LABORATORY Specimen Anatomical Collection Method Collection Time Receive d Time (Source) Location / / Volume Laterality Blood specimen 03/22/2019 4:20 PM 019 4:31 (specimen) EDT PM EDT Resulting Agency Comment Spec In Lab Cheryle Dai MD CHEMISTRY ORDERABLES Performing Organization Address City/[facility]/ZIP [facility] [place] [address] CRP, acute inflammation (03/22/2019 4:20 PM EDT) P athologist Signature CRP 0.5 <=4.9 mg/L [facility] Specimen Anatomical Collection Method Collection Time Receive d Time (Source) Location / / Volume Laterality Blood specimen 03/22/2019 4:20 PM 019 4:31 (specimen) EDT PM EDT Resulting Agency Comment Spec In Lab Cheryle Dai MD CHEMISTRY ORDERABLES Performing Organization Address City/[facility] [place] [address] Comprehensive metabolic panel (non-fasting) (03/22/2019 4:20 PM EDT) P athologist Signature Glucose Lvl 104 65 - 199 [facility] mg/dL [facility] LABORATORY Comment: Diabetes: >=200 mg/dL plus symp toms BUN 17 8 - 18 mg/dL [facility] LAB[facility] Creatinine 0.70 0.70 - 1.20 mg/dL [facility]OR[facility] Sodium 142 135 - 145 mmol/L [facility] Potassium 4.4 3.5 - 5.0 mmol/L [facility] Comment: Please note: ??Patients with WBC >100,00 0 may have falsely elevated Potassium levels. ??For accurate Potassium quantif ication in these patients send serum separator tube (gold top) for subsequent determinations. ??Contact the Clinical Chemistry Laboratory if there are any qu estions. Chloride 105 98 - 107 mmol/L [facility] CO2 26 22 - 31 mmol/L [facility] Anion Gap 11 5 - 15 mmol/L [facility] Calcium 9.7 8.5 - 10.5 mg/dL [facility] Total Protein 6.9 6.1 - 8.0 gm/dL [facility] Albumin 4.7 3.2 - 5.2 gm/dL [facility] AST 24 0 - 30 unit/L [facility] ALT 20 0 - 30 unit/L [facility] Alk Phos 47 40 - 104 unit/L [facility] Total Bilirubin 0.3 0.2 - 1.3 mg/dL [facility] Estimated GFR 84 >=60 mL/min/1.73 m?? [facility] Comment: The eGFR was calculated using the CKD-EP I equation. As with all creatinine based estimates of kidney function, eGFR values calculated with the CKD-EPI equation are not accurate in patients wi th acute kidney failure, extremes of body mass or the acutely ill. [email or web address] eGFR 98 >=60 mL/min/1.73 m?? [facility] Comment: The eGFR was calculated using the CKD-EP I equation. As with all creatinine based estimates of kidney function, eGFR values calculated with the CKD-EPI equation are not accurate in patients wi th acute kidney failure, extremes of body mass or the acutely ill. [email or web address] Specimen Anatomical Collection Method Collection Time Receive d Time (Source) Location / / Volume Laterality Blood specimen 03/22/2019 4:20 PM 019 4:31 (specimen) EDT PM EDT Resulting Agency Comment Spec In Lab Cheryle Dai MD CHEMISTRY ORDERABLES Performing Organization Address City/State/ZIP [place] [address] (ABNORMAL) Sedimentation rate (03/22/2019 4:20 PM EDT) athologist Signature Sed Rate 37 (H) 0 - 20 [facility] mm/hr [facility] LABORATORY Specimen Anatomical Collection Method Collection Time Receive d Time (Source) Location / / Volume Laterality Blood specimen 03/22/2019 4:20 PM 019 4:31 (specimen) EDT PM EDT Resulting Agency Comment Spec In Lab Cheryle Dai MD HEMATOLOGY ORDERABLES Performing Organization Address City/State/ZIP [place] [address] documented in this encounter Visit Diagnoses Diagnosis Dermatomyositis High risk medication use Encounter for long-term (current) use of other medications History of corticosteroid therapy Personal history of systemic steroid the rapy Asymptomatic menopausal state Asymptomatic postmenopausal status (age- related) (natural) Asymptomatic menopausal state Asymptomatic postmenopausal status (age- related) (natural) History of corticosteroid therapy Personal history of systemic steroid the rapy documented in this encounter 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
--- OUTSIDE RECORDS SUMMARY | 2022-06-07 01:16 | XMS_ITS | Encounter Summary ---
:1940 Author Organization [facility] [place] [address] Care Team Providers Name Role Phone Mir Mancini MD Primary Care Provider Reason for Referral Diagnostic Test (Routine) - Closed Specialty Diagnoses / Procedures Referred By Contact Refer red To Contact Radiology Diagnoses Asymptomatic menopausal state History of corticosteroid therapy Cheryle Dai MD [facility] Rad Xray Procedures DXA Central-Spine, Hip, And/Or Whole Body (Generic) [facility] DR Vicente [facility] [place] [address] [place] [address] Referral ID Status Reason Start Date Expiration Date Visits V isits Requested Authorized [id number] Closed Specialty 03/22/2019 03/21/2020 1 1 Service Requested Reason for Visit Diagnostic Test (Routine) - Closed Specialty Diagnoses / Procedures Referred By Contact Refer red To Contact Radiology Diagnoses Asymptomatic menopausal state History of corticosteroid therapy Cheryle Dai MD [facility] Rad Xray Procedures DXA Central-Spine, Hip, And/Or Whole Body (Generic) [facility] DR Vicente [facility] [place] [address] [place] [address] Referral ID Status Reason Start Date Expiration Date Visits V isits Requested Authorized [id number] Closed Specialty 03/22/2019 03/21/2020 1 1 Service Requested Encounter Details Date Type Department Care Team Description 07/20/2019 Hospital Encounter XRay at [facility] Cheryle Dai Asymptomatic menopausal stat e ; [address] Haydee MD History of corticosteroid therapy [place], [place] [facility] [address] CENTER [phone] [place] [address] Social History Tobacco Use Types Packs/Day Years Used Date Never Smoker Smokeless Tobacco: Never Used Sex Assigned at Date Recorded Not on file documented as of this encounter Medications at Time of Discharge Medication Sig Dispensed Refills Start Date End Date losartan (COZAAR) 100 mg daily. 0 01/22/2019 Tablet nitroGLYcerin (NITROSTAT) place 1 tablet 0 2018 0.4 mg Tablet, Sublingual under the tongue if needed every 5 minutes for abel... (REFER TO PRESCRIPTION NOTES). metoprolol succinate 50 mg daily. 0 02/13/2019 (TOPROL-XL) 100 mg Tablet Sustained Release 24 hr aspirin 81 mg Tablet, Take 81 mg by mouth 0 Delayed Release (E.C.) daily. magnesium 250 mg Tablet Take by mouth 0 daily. cholecalciferol, Vitamin Take by mouth 0 D3, 1,000 unit Capsule daily. [place]-3 Fatty Take 2,000 mg by 0 Acids-Vitamin E (FISH mouth daily. OIL) 1,000 mg Cap amlodipine (NORVASC) 5 mg Take 1 tablet by 30 tablet 3 07/30 tablet mouth daily. pravastatin (PRAVACHOL) 40mg, PO, QPM 0 6 40 mg tablet Psyllium Seed-Sucrose 0 12/26/2004 (METAMUCIL) Powd hydroxychloroquine Take 1 tablet by 90 tablet 3 07/20/2019 10/04/2019 (PLAQUENIL) 200 mg Tablet mouth daily. metHOTREXate 2.5 mg Take 3 tablets by 36 tablet 1 9 10/04/2019 Tablet mouth once a week. folic acid (FOLVITE) 1 mg Take 1 tablet by 90 tablet 3 06/3010/04/2019 Tablet mouth daily. omeprazole (PRILOSEC) 20 Take 1 capsule by 90 capsule 3 06/3010/04/2019 mg Capsule, Delayed mouth daily. Release(E.C.) MULTIVITAMIN Take 1 capsule by 0 10/10 W-MINERALS/LUTEIN mouth daily. (MULTIVITAL [place] ORAL) documented as of this encounter Plan of Treatment Upcoming Encounters Date Type Specialty Care Team Description 06/18/2022 Office Visit Rheumatology Cheryle Dai MD [facility] ER DR RHEUMATOLOGY [place], [place] [address] (Wo rk) documented as of this encounter Procedures Procedure Name Priority Date/Time Associated Diagnosis Comme nts DXA CENTRAL SPINE, Routine 07/20/2019 11:01 Asymptomatic menop ausal Results for this HIP, AND/OR WHOLE AM EDT state procedure are in BODY (GENERIC) History of the results corticosteroid therapy secti on. documented in this encounter Results DXA Central [...] This is available through an interactive web-based madKasta ce ([email or web address] and can be used to estimate a [...] measurements a nd plots are available in EPointBurst under the imaging tab. Paper copies will be sent to providers without E- access. If you have received this report without e data sheet and do not have access to Clio, please contact Radiology [facility] at [phone] Friday thru Friday 8am-4pm. Thank you for letting us participate in the care of this patient. For questions regarding this report, please contact e number below. ? Narrative 07/23/2019 9:23 AM EDT EXAMINATION: DXA [...] measurements a nd plots are available in EPointBurst under the imaging tab. Paper copies will be sent to providers without E- access. If you have received this report without e data sheet and do not have access to Clio, please contact Radiology [facility] at [phone] Friday thru Friday 8am-4pm. Thank you for letting us participate in the care of this patient. For questions regarding this report, please contact e number below. Electronically signed by: Mayela Subramanian [facility] ([phone]), at 07/23/2019 9:23 AM Cheryle Dai MD IMG DEXA ORDERABLES documented in this encounter Visit Diagnoses Diagnosis Asymptomatic menopausal state Asymptomatic postmenopausal status (age- related) (natural) History of corticosteroid therapy Personal history of systemic steroid the rapy documented in this encounter Care Teams Marketing Sales Representative Relationship Specialty Start Date End Date Mir Mancini MD PCP - General Family Medicine 05/25/[address] [place] [address] documented as of this encounter
--- OUTSIDE RECORDS SUMMARY | 2022-06-07 01:16 | XMS_ITS | Encounter Summary ---
:1940 [place] [address] Care Team Providers Name Role Phone Kait Garcia MD Primary Care Provider Encounter Details Date Type Department Care Team Description 08/12/2011 Hospital Encounter [facility] Day Program at [facility] CAD (coronary artery Ashley Hill MD disease) [facility] [place] [address] [phone] Social History Tobacco Use Types Packs/Day Years Used Date Never Assessed Sex Assigned at Date Recorded Not on file documented as of this encounter Last Filed Vital Signs Vital Sign Reading Time Taken Comments Blood Pressure 135/49 08/12/2011 4:51 PM EST Pulse 54 08/12/2011 4:51 PM EST Temperature 36.3 ??C (97.3 ??F) 08/12/2011 12:35 PM EST Respiratory Rate 16 08/12/2011 4:51 PM EST Oxygen Saturation 96% 08/12/2011 4:51 PM EST Inhaled Oxygen Concentration - - Weight 87.1 kg (192 lb) 08/12/2011 7:45 AM EST Height 152.4 cm (5') 08/12/2011 7:45 AM EST Body Mass Index 37.5 08/12/2011 7:45 AM EST documented in this encounter Discharge Instructions Discharge Juany Pena RN - 08/12/2011 4:59 PM EST Activity If you are discharged the same day as your procedure, do not drive yourself home. Arrange to have another person drive. You may walk around when you get home, but keep your activity at a minimum until the morning. Do not bend over, strain, or lift heavy objects for 24 hours after the procedure. Do not participatein active sports for 48 hours. You may engage in sexual activity after 48 hours. These restrictions will not apply if the catheter was placed in a blood vessel in your arm. Catheter Insertion Area Care Take the band-aid off the catheter insertion area the morning following the procedure. You may take a shower if you wish. Wash the area with soap and water. Look for signs of infection over the next several days. A little spot of blood at the catheter insertion area is not unusual. A bruise or small lump under the skin is normal; they generally disappear in 3-4 days. For the first several days at home if you cough or sneeze, hold your groin to help prevent bleeding. Expect some mild tenderness over the area where the catheter was inserted. You will notice this after the local anesthetic (numbing medicine) wears off. This should improve during the 24-48 hours afterthe procedure. Take tylenol if needed. Contact your doctor if the discomfort worsens. Problems to Watch For If there is bright red blood flowing from the catheter insertion area: *stop what you are doing and lie down *Hold pressure steadily on the area for 15 minutes *Call for Help *If the bleeding does not stop in 15 minutes call 911 for an ambulance. If there is swelling with black and blue color at the catheter insertion area, there may be bleeding inside. Contact the doctor if there is any increase in size. Look at the insertion site for the first few days at home. Signs of infection are: *redness *Swelling *Yellow, white, green or brown foul smelling drainage. *increased soreness If you think there is an infection, take your temperature. Then call your doctor. The limb on the side where you had your catheterization should look and feel normal in its color, sensation, and temperature. If your leg becomes cool, pale, blue or changing color with numbness and tingling, contact your doctor. If you feel faint or dizzy, lie down with your feet elevated. Have someone call the doctor. If you are alert, drink fluids. How to Deal with Chest pain If you had only the cardiac catheterization, treat any angina or chest discomfort as instructed. Stop what you are doing, and sit or lie down. If prescribed, take nitroglycerin under your tongue. If the angina isn't relieved, take another nitroglycerine in 5 minutes. After another 5 minutes, a third ni troglycerine may be taken. If the angina isn't improved you should call for an ambulance to bring you to the nearest hospital emergency room. If your angina is more frequent or more sever than before, contact your doctor. We usually would not expect to have angina after an angioplasty. If you do get angina, treat it as you did before but also contact your doctor. Return to Work The doctor will usually have told you when to return to work. If you do not perform heavy physical labor, most people can return to work in a few days. Diet Follow your previous diet unless otherwise instructed. Cardiac Risk Factors If you have coronary artery disease, it is important that you help control it by reducing your cardiac risk factors. If you smoke, we urge you to stop now. If you think this is going to be a problem, let us know so that we may help you. We have dieticians who can help you learn about low fat, low cholesterol diet. Cardiac rehabilitation programs can help you set up a regular exercise program. Work with your doctor if you have high blood pressure or sugar diabetes to keep these under control. Medications ____Take your usual medications ____Medication changes: If you are taking medicines prescribed by your doctor, do not take any [id number] medicines orherbal preparations without first discussing this with your doctor or pharmacist. There is the possibility of side effect and interactions when these are combined. Follow up Care Who to Call with Questions or Problems If there are any questions or problems that you think might be related to your cardiac cath or angioplasty, contact the [place] retail sales professional by calling [facility] at . documented in this encounter Medications at Time of Discharge Medication Sig Dispensed Refills Start Date End Date [place]-3 Fatty Take 2,000 mg by 0 Acids-Vitamin E (FISH mouth daily. OIL) 1,000 mg Cap amlodipine (NORVASC) 5 mg Take 1 tablet by 30 tablet 3 07/30 tablet mouth daily. pravastatin (PRAVACHOL) 40mg, PO, QPM 0 6 40 mg tablet Psyllium Seed-Sucrose 0 12/26/2004 (METAMUCIL) Powd MULTIVITAMIN Take 1 capsule by 0 10/10 W-MINERALS/LUTEIN mouth daily. (MULTIVITAL [place] ORAL) metoprolol succinate 50MG = 1 Tablet(s), 0 200503/22/2019 (TOPROL-XL) 50 mg 24 hr PO, Once daily tablet lisinopril-hydrochlorothi 1 Tablet(s), PO, 0 09/3007/20/2019 azide Once daily (PRINZIDE;ZESTORETIC) 20-25 mg per tablet CIS Free Text Med - ASA 0 12/26/2004 1 ALUMINUM HYDROXIDE GEL 0 12/26/2004 ORAL QUINAPRIL HCL (QUINAPRIL 0 12/26/2004 07/20/2019 ORAL) documented as of this encounter Progress Notes Juany Foster RN - 08/12/2011 3:34 PM EST 1430- dr. Monet in to Pt. documented in this encounter H&P Notes Joss Hernandez MD - 08/12/2011 9:38 AM EST I have reviewed and updated as necessary the Medical, Surgical, Family, and Social History captured within the EMR. I have reviewed and updated as necessary the patient's allergies and current medication list within the EMR. The indications, expected benefits and potential risks of heart catheterization were reviewed in detail with the patient. The potential for , heart attack, stroke, kidney failure, hemorrhage, allergic reaction, vascular complications and infection were reviewed in detail. The possibility of stenting and other percutaneous intervention, with associated risk, was reviewed. The possible need for emergent coronary artery bypass surgery was reviewed. After a discussion about the above, and having answered all questions posed, the patient was provided with a consent which was reviewed and signed. documented in this encounter Procedure Notes Provider, Scanning - 08/12/2011 9:10 PM ESTAssociated Order(s): SCAN DOC: CARDIAC CATH; SCAN DOC: CARDIAC CATH documented in this encounter Miscellaneous Notes Miscellaneous - Provider, Scanning - 08/12/2011 9:13 PM EST Miscellaneous - Provider, Scanning - 08/12/2011 8:29 AM EST documented in this encounter Plan of Treatment Upcoming Encounters Date Type Specialty Care Team Description 06/18/2022 Office Visit Rheumatology Cheryle Dai MD [facility] RHEUMATOLOGY DEP [place], [place] [address] (Wo rk) Scheduled Orders Name Type Priority Associated Diagnoses Order S chedule EKG 12 Lead ECG STAT CAD (coronary artery disease ) One Time for 1 Occurrences starting 2010 until 08/12/2011 documented as of this encounter Procedures Procedure Name Priority Date/Time Associated Comments Diagnosis CARDIAC CATH SCAN 08/12/2011 9:10 Results for this PM EST procedure are i n the results section. CARDIAC CATHETERIZATION 08/12/2011 9:49 angina AM EST documented in this encounter Results SCAN DOC: CARDIAC CATH (08/12/2011 9:10 PM EST) Narrative 08/12/2011 9:22 PM EST Procedure Note Provider, Scanning - 08/12/2011 9:10 PM EST Scanning Provider MEDIA MGR SCAN EXT ORDR/RSLT documented in this encounter Visit Diagnoses Diagnosis CAD (coronary artery disease) Coronary atherosclerosis of unspecified type of vessel, [place] or graft documented in this encounter Administered Medications Inactive Administered Medications - up to 3 most recent administrations Medication Order MAR Action Action Date Dose Rate Site amlodipine (NORVASC) tablet 5 mg Given 08/12/2011 3:39 PM EST 5 mg 5 mg, Oral, DAILY, 30 doses, First dose on Fri08/12/11 at 1115, Last dose on Fri09/10/11 at 0900, Routine diaZEPam (VALIUM) tablet 5 mg Given 08/12/2011 9:43 AM EST 5 mg 5 mg, Oral, ONCE, 1 dose, On Fri08/12/11 at 0815, Cath (Day of Procedure), Routine diphenhydrAMINE (BENADRYL) tablet 25 mg Given 08/12/2011 9:43 AM EST 25 mg 25 mg, Oral, ONCE, 1 dose, On Fri08/12/11 at 0815, Cath (Day of Procedure), Routine sodium chloride 0.9% Rate/Dose Change 08/12/2011 9:55 AM EST 50 mL/hr 50 mL/hr infusion 200 mL/hr, Intravenous, CONTINUOUS, Starting on Fri08/12/11 at 0815, Until Fri08/12/11 at 1110, Cath (Day of Procedure) sodium chloride 0.9% infusion New Bag 08/12/2011 11:00 AM EST 125 mL/hr 125 mL/hr 125 mL/hr, Intravenous, CONTINUOUS, Starting on Fri08/12/11 at 1100, Until Fri08/12/11 at 1659 documented in this encounter Active and Recently Administered Medications Times are shown in EST. Scheduled Medication Order 08/10/2011 08/11/2011 08/12/2011 amlodipine (NORVASC) tablet 5 mg 1115 (Due)[id number] (Given - Provider: Juany Foster RN) 5 mg, Oral, DAILY, 30 doses, First dose on Fri08/12/11 at 1115, Last dose on Fri09/10/11 at 0900, Routine diaZEPam (VALIUM) tablet 5 mg (COMPLETED) 814 (Due)[id number] (Given - Provider: Ashley Levy RN) 5 mg, Oral, ONCE, 1 dose, Fri08/12/11 at 0815, Cath (Pre-Proced ure), Routine diphenhydrAMINE (BENADRYL) tablet 25 mg (COMPLETED) 814 (Due)942 (Given - Provider: Ashley Levy RN) 25 mg, Oral, ONCE, 1 dose, Fri08/12/11 at 0815, Cath (Pre-P rocedure), Routine Continuous Medication Order 08/10/2011 08/11/2011 08/12/2011 sodium chloride 0.9% infusion (CANCELED) 0955 (Rate/Dose Change - Provider: Yoselyn Davies, SIMÓN - Comment: Drip rate dec reased on arrival in filling station 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) 200 mL/hr, at 200 mL/hr, Intravenous, CO NTINUOUS, Starting Fri08/12/11 at 0815, Until Fri08/12/11 at 1110, Cath (Pre-Procedure) sodium chloride 0.9% infusion () 1100 (New Bag - Provider: Indira Galdamez RN) 125 mL/hr, at 125 mL/hr, Intravenous, CO NTINUOUS, Starting Fri08/12/11 at 1100, Until Fri08/12/11 at 1659 PRN Medication Order 08/10/2011 08/11/2011 08/12/2011 heparin (porcine) injection (CANCELED) 1011 (Given - Provider: Joss Hernandez MD) ONCE PRN, Starting Fri08/12/11 at 1011, Until Fri08/12/11 at 2020, Intra- operative, Routine iodixanol (VISIPAQUE) 320 mg/mL injection (CANCELED) 1042 (Given - Provider: Seamus Monet MD) ONCE PRN, Starting Fri08/12/11 at 1042, Until Fri08/12/11 at 1110, Per Protocol, Cath (Intra-Procedure), Routine midazolam (VERSED) injection (CANCELED) 1012 (Given - Provider: Yoselyn Davies RN) ONCE PRN, Starting Fri08/12/11 at 1012, Until Fri08/12/11 at 1052, Sleep, Cath (Intra-Procedure), Routine documented in this encounter Care Teams Hand Tapper Relationship Specialty Start Date End Date Kait Garcia MD PCP - General 08/10/11 05/24/18 [address] [place] [address] documented as of this encounter
--- OUTSIDE RECORDS SUMMARY | 2022-06-07 01:16 | XMS_ITS | Encounter Summary ---
:1940 Author Organization [facility] Address [address] [facility] [place] [address] Care Team Providers Name Role Phone Mir Mancini MD Primary Care Provider [phone] Reason for Visit Consultation (Routine) - Closed Specialty Diagnoses / Procedures Referred By Contact Refer red To Contact Dermatology Diagnoses dermatomyositis diagnosed via biopsy many years ago, skin disease has been quiet, now w/ new onset rashed, some of which appear to be related to dermatyositis, some which do not Shelly Alcaraz MD [facility] Dermatology [facility] [address] [place] [address] [address] [place] [address] Referral ID Status Reason Start Date Expiration Date Visits V isits Requested Authorized [id number] Closed Consult, 05/25/2018 05/25/2019 1 1 [facility] Encounter Details Date Type Department Care Team Description 06/22/2018 Office Visit Dermatology at [facility] Kary Vasquez MD Feared condition not Road [facility] (Primary [address] [place]) [place] [address] [facility] [phone] RD-DERMATOLOGY [place], [place] [address] Social History Tobacco Use Types Packs/Day Years Used Date Never Smoker Smokeless Tobacco: Never Used Sex Assigned at Date Recorded Not on file documented as of this encounter Progress Notes Kary Vasquez MD - 06/22/2018 3:15 PM EDT Images from the original note were not included. DERMATOLOGY - NEW PATIENT NOTE Date of service: 06/22/2018 Milagros Lai : 1940, 78 y.o. Chief Complaint: Rash HPI: Milagros Lai is a 78 y.o. female referred by Shelly Alcaraz with the following concerns: Hx of dermatomyositis, dx back in s. Per patient, muscle bx was performed, not skin bx. See skin hx for current DM treatment regimen. Here today because of a new rash. About two months ago, developed a rash on the face and upper chest. It occurred after long day of gardening. The rash was burning and slightly tingly. Reports she does get flushing. Comes and goes, especially with excitement. Today rash is gone. Relevant Skin History: Rheum Hx based on Dr. Alcaraz's Notes -bx-proven dermatomyositis in at [facility] Also carries dx of polymyalgia rheumatica and gout. -on HCQ 200mg BID and prednisone 07/2016 -02/2017 MTX started Relevant Social History: - Retired Current Outpatient Prescriptions Medication Sig Dispense Refill ??? [place]-3 Fatty Acids-Vitamin E (FISH OIL) 1,000 mg Cap Take 2,000 mg by mouth daily. ??? MULTIVITAMIN W-MINERALS/LUTEIN (MULTIVITAL [place] ORAL) Take 1 capsule by mouth daily. ??? amlodipine (NORVASC) 5 mg tablet Take 1 tablet by mouth daily. 30 tablet 3 ??? metoprolol succinate (TOPROL-XL) 50 mg 24 hr tablet 50MG = 1 Tablet(s), PO, Once daily ??? lisinopril-hydrochlorothiazide (PRINZIDE;ZESTORETIC) 20-25 mg per tablet 1 Tablet(s), PO, Once daily ??? pravastatin (PRAVACHOL) 40 mg tablet 40mg, PO, QPM ??? CIS Free Text Med - ASA ??? ALUMINUM HYDROXIDE GEL ORAL ??? QUINAPRIL HCL (QUINAPRIL ORAL) ??? Psyllium Seed-Sucrose (METAMUCIL) Powd No current facility-administered medications for this visit. Allergies Allergen Reactions ??? Sulfa (Sulfonamide Antibiotics) Rash ??? Amlodipine Other (See Comments) Edema of lower extremities ??? Cocaine (Bulk) Other (See Comments) hypotension ? ? Dust & Pollen Filter Mask [Facial Mask] Other (See Comments) ??? Mold Extracts Other (See Comments) rhinitis Review of Systems: - General: Feels well. Denies N/V, DAWSON, diarrhea. - Skin: No other skin concerns. Examination: - Constitutional: Patient was alert, well-appearing and in no noticeable distress. - Skin: The patient was instructed to disrobe to the level of their comfort. A full body examinationwas performed, which included the head, neck, scalp, arms, hands, legs, feet, chest, back, abdomen, buttocks. Examination of the genitalia was offered but the patient declined. A female nurse was present and on standby during my examination. Diagnosis/Skin findings/Assessment/Plan: 1. Feared condition not demonstrated - 1 dilated capillary right 2nd digit proximal nail fold, no other finger nail findings. Negative maculopapular rash on the face, thighs. Some erythema and tanned skin of the upper chest. Eyelids normal, hands normal. -stigmata of dermatomyositis not present today. Erythema of the upper chest is non-specific, hyperpigmentation 2/2 sun exposure? -no maculopapular rash today. Some erythematotelangiectatic rosacea, which is consistent w hx of flushing with excitement. Pathology report request faxed to Jarett Valadez on 06/24. Apparently bx of skin performed in 1980s. Spoke w Dr. Alcaraz 06/24-- unclear hx of bx report. Though Dr. Alcaraz noticed a malar rash and upper chest. Concerned about CTD rash. Notified Dr. Alcaraz -- if rash returns, have pt see us urgently -- add on to consult resident OK for bx to get definitive dx. RTC: PRN Note initiated by Indira Candelaria RN. I performed the above scribed service and agree with the accuracy of the documentation in this encounter. Reviewed and signed by Kary Vasquez MD Resident in Dermatology [facility] Patient seen in conjunction with staff sap payroll consultant: Ronen Mccallum MD Section of Dermatology [facility] Ronen Mccallum MD - 06/22/2018 3:15 PM EDT I directly supervised Dr. Kary Vasquez during this office visit. Dr. Vasquez presented the history andphysical exam to me. I then saw and examined this patient with Dr. Vasquez. We reviewed the history andpertinent details and I confirmed the physical findings. I agree with the details of the history and physical exam as documented in Dr. Vasquez's note. RONEN MCCALLUM MD Staff Physician Kary Vasquez MD - 06/22/2018 3:15 PM EDT Addendum 06/24 Jarett Valadez does not have the biopsy result--records too old. For now, will wait for rash to return and get a bx for definitive dx. Will send auto inspection specialist a letter RE this. Kary Vasquez MD Resident in Dermatology [facility] Pager [phone] documented in this encounter Plan of Treatment Upcoming Encounters Date Type Specialty Care Team Description 06/18/2022 Office Visit Rheumatology Cheryle Dai MD [facility] DR [facility] [place] [address] (Wo rk) documented as of this encounter Visit Diagnoses Diagnosis Feared condition not demonstrated - Prim vamsi Person with feared complaint in whom no diagnosis was made documented in this encounter Care Teams Live Games Dealer Relationship Specialty Start Date End Date Mir Mancini MD PCP - General Family Medicine 05/25/[address] [place] [address] documented as of this encounter
--- OUTSIDE RECORDS SUMMARY | 2022-06-07 01:16 | XMS_ITS | Encounter Summary ---
:1940 Author Organization [facility] [place] [address] Care Team Providers Name Role Phone Schuyler MAS MD, Toribio Werner Primary Care Provider [phone] Encounter Details Date Type Department Care Team Description 08/09/2011 Orders Only Cardiology at [facility] [place] [facility] [place] [address] CARDIOLOGY DEPT. [phone] [place], [place] [address] (Wo rk) Social History Tobacco Use Types Packs/Day Years Used Date Never Assessed Sex Assigned at Date Recorded Not on file documented as of this encounter Plan of Treatment Upcoming Encounters Date Type Specialty Care Team Description 06/18/2022 Office Visit Rheumatology Cheryle Dai MD [facility] RHEUMATOLOGY DEP T. [place], [place] [address] (Wo rk) documented as of this encounter Procedures Procedure Name Priority Date/Time Associated Diagnosis Comme nts CARDIAC CATHETERIZATION Routine 08/19/2011 12:37 PM EST documented in this encounter Results Cardiac Catheterization (08/19/2011 12:37 PM EST) Anatomical Region Laterality Modality Other Specimen (Source) Anatomical Location Collection Method / Collectio n Time Received Time / Laterality Volume Narrative This result has an attachment that is no t available. Carlo Caal MD CARDIAC CATH ORDERABLES documented in this encounter Visit Diagnoses Not on filedocumented in this encounter Care Teams Check Cashier Relationship Specialty Start Date End Date Toribio Payan III, MD PCP - General 08/21/10 08/09/[address] [place] [address] documented as of this encounter
--- OUTSIDE RECORDS SUMMARY | 2022-06-07 01:16 | XMS_ITS | Encounter Summary ---
:1940 [place] [address] Care Team Providers Name Role Phone Kait Garcia MD Primary Care Provider Encounter Details Date Type Department Care Team Description 08/12/2011 Surgery Cooler Conveyor Loader Seamus Ragsdale, CARDIAC CATHETERIZATION [facility] [place] [address] CARDIOLOGY DEPT. [phone] [place] [id number] (Wo rk) Social History Tobacco Use Types Packs/Day Years Used Date Never Assessed Sex Assigned at Date Recorded Not on file documented as of this encounter Last Filed Vital Signs Vital Sign Reading Time Taken Comments Blood Pressure 156/66 08/12/2011 7:45 AM EST Pulse 61 08/12/2011 7:45 AM EST Temperature 36.3 ??C (97.3 ??F) 08/12/2011 7:45 AM EST Respiratory Rate 16 08/12/2011 7:45 AM EST Oxygen Saturation 98% 08/12/2011 7:45 AM EST Inhaled Oxygen Concentration - - Weight [...] by your doctor, do not take any xttf-boi-peinqac medicines orherbal preparations without first discussing this with your doctor or pharmacist. There is the possibility of side effect and interactions when these are combined. Follow up Care Who to Call with Questions or Problems If there are any questions or problems that you think might be related to your cardiac cath or angioplasty, contact the master baker runner on by calling [facility] at . documented in this encounter Medications at Time of Discharge Medication Sig Dispensed Refills Start Date End Date [place]-3 Fatty Take 2,000 mg by 0 Acids-Vitamin E (FISH mouth daily. OIL) 1,000 mg Cap amlodipine (NORVASC) 5 mg Take 1 tablet by 30 tablet 3 07/30 tablet mouth daily. pravastatin (PRAVACHOL) 40mg, PO, QPM 0 6 40 mg tablet Psyllium Seed-Sucrose 0 12/26/2004 (METAMUCIL) Powd MULTIVITAMIN Take 1 capsule by 0 10/10 W-MINERALS/LUTEIN mouth daily. (MULTIVITAL [place] ORAL) metoprolol succinate 50MG = 1 Tablet(s), [...] MD [facility] [address] RHEUMATOLOGY [place], [place] [address] (Wo rk) Scheduled Orders Name [...] ORDR/RSLT documented in this encounter Visit Diagnoses Not on filedocumented in this encounter Administered Medications Inactive Administered Medications - up to 3 most recent administrations Medication Order MAR Action Action Date Dose Rate Site amlodipine (NORVASC) tablet 5 mg Given 08/12/2011 3:39 PM EST 5 mg 5 mg, Oral, DAILY, 30 doses, First dose on 08/12/11 at 1115, Last dose on Fri09/10/11 at 0900, Routine diaZEPam (VALIUM) tablet 5 mg Given 08/12/2011 9:43 AM EST 5 mg 5 mg, Oral, ONCE, 1 dose, On Fri08/12/11 at 0815, Cath (Day of Procedure), Routine diphenhydrAMINE (BENADRYL) tablet 25 mg Given 08/12/2011 9:43 AM EST 25 mg 25 mg, Oral, ONCE, 1 dose, On Fri08/12/11 at 0815, Cath (Day of Procedure), Routine heparin (porcine) injection Given 08/12/2011 10:11 AM EST 2,000 Units ONCE PRN, Starting on Fri08/12/11 at 1011, Until Fri08/12/11 at 2020, Intra-Operative (Intra-Procedure), Routine iodixanol (VISIPAQUE) 320 mg/mL injectio n Given 08/12/2011 10:42 AM EST 100 mLs ONCE PRN, Starting on Fri08/12/11 at 1042, Until Fri08/12/11 at 1110, Per Protocol, Cath (Intra-Procedure), Routine midazolam (VERSED) injection Given 08/12/2011 10:12 AM EST 0.5 mg ONCE PRN, Starting on Fri08/12/11 at 1012, Until Fri08/12/11 at 1052, Sleep, Cath (Intra-Procedure), Routine sodium chloride 0.9% Rate/Dose Change 08/12/2011 [...] diaZEPam (VALIUM) tablet 5 mg (COMPLETED) 814 (Due)0943 (Given - Provider: Ashley Levy RN) 5 mg, Oral, ONCE, 1 dose, Fri08/12/11 at 0815, Cath (Pre-Proced ure), Routine diphenhydrAMINE (BENADRYL) tablet 25 mg (COMPLETED) 814 (Due)0943 (Given - Provider: Ashley Levy RN) 25 mg, Oral, ONCE, 1 dose, Fri08/12/11 at 0815, Cath (Pre-P rocedure), Routine Continuous Medication Order 08/10/2011 08/11/2011 08/12/2011 sodium chloride 0.9% infusion (CANCELED) 0955 (Rate/Dose Change - Provider: Yoselyn Davies RN - Comment: Drip rate dec reased on arrival in chemical laboratory scientist) 200 mL/hr, at 200 mL/hr, Intravenous, CO [...] Routine documented in this encounter Care Teams Organizational Development Director Relationship Specialty Start Date End Date Kait Garcia MD PCP - General 08/10/11 05/24/18 [address] [place] [address] documented as of this encounter
--- OUTSIDE RECORDS SUMMARY | 2022-06-07 01:16 | XMS_ITS | Encounter Summary ---
:1940 Author Organization [facility] [place] [address] Care Team Providers Name Role Phone Kait Garcia MD Primary Care Provider Encounter Details Date Type Department Care Team Description 08/09/2011 Abstract Cardiology at [facility] Tashia Brunner, [place] [address] Social History Tobacco Use Types Packs/Day Years Used Date Never Assessed Sex Assigned at Date Recorded Not on file documented as of this encounter Plan of Treatment Upcoming Encounters Date Type Specialty Care Team Description 06/18/2022 Office Visit Rheumatology Cheryle Dai MD [facility] DR RHEUMATOLOGY [place], [place] [address] (Wo rk) documented as of this encounter Visit Diagnoses Not on filedocumented in this encounter Care Teams Net Application Support Specialist Relationship Specialty Start Date End Date Kait Garcia MD PCP - General 08/10/11 05/24/18 [address] [place] [address] documented as of this encounter
--- OUTSIDE RECORDS SUMMARY | 2022-06-07 01:17 | XMS_ITS | Encounter Summary ---
:1940 Author Organization [facility] Address [address] [place] [address] Care Team Providers Name Role Phone Unavailable Primary Care Provider Unavailable Encounter Details Date Type Department Care Team Description 05/08/2010 Results Only [facility] Latrell Lora , Laboratory Services - [address] [place] [address] [place] [address] [place] [address] [phone] Social History Tobacco Use Types Packs/Day Years Used Date Never Assessed Sex Assigned at Date Recorded Not on file documented as of this encounter Plan of Treatment Not on filedocumented as of this encounter Procedures Procedure Name Priority Date/Time Associated Diagnosis Comme [facility] SURGICAL PATHOLOGY Routine 05/08/2010 0:00 EDT Re sults for this procedure are i n the results section. documented in this encounter Results SURGICAL PATHOLOGY (05/08/2010 0:00 EDT) Pathology Report: SURGICAL PATHOLOGY REPORT ? [facility] KUMAR Reports generated via electr Farmstr interface contain original data; ? LAB however they are lacking the format of the original report. ? Caution should be taken when reading/interpreting unformatted reports. ? Name: ? LAI, JODY HERMANN A ? Accession #: ? [id number] ? : ? 1940 (Age: 69) ??F ? Collec t Date: ? 05/08/2010 ? Location: ? [facility] ? R eceive Date: ? 05/08/2010 ? Provider: LATRELL AVENDAÑO SON DO ? Copy to: JAISON READY MD ? Final Pathologic Diagnosis: ? Colon, at 30 cm, poly p, biopsy: ? - ??Polypoid portion of colo yariel mucosa with an innominate groove, otherwise ? unremarkable. ? Comment: ? Deeper levels were ex amined. ??(Dr. Calvo)/mpl ? Document reviewed and electr onically signed by: ? Wellington Berry, ? Report ??Date: 05/11/2010 14 :49 ? By the signature above, the attending physician certifies that he/she has ? personally conducted a gross and/or microscopic examination of the described ? specimens and rendered or co nfirmed the above diagnosis. ? Specimen(s) Received: ? Polyp 30 cm ? Clinical History: ? Screening colonoscopy ? Gross Description: ? Received in Olman' s fixative labelled Lai, Milagros and polyp 30 cm is a 0.2 x 0.2 x 0.2 cm polypoid biopsy. ??The specimen is submitted ? intact in one cassette. ??(Haydee Pena)/kmm ? End of Report ? Specimen Performing Organization Address City/State/ZIP Code Phon e Number [facility] [address] [place] [address] SERVICES [facility] [address] [place] [address] documented in this encounter Visit Diagnoses Not on filedocumented in this encounter
--- OUTSIDE RECORDS SUMMARY | 2022-06-07 01:17 | XMS_ITS | Encounter Summary ---
:1940 Author Organization [facility] Address [address] [place] [address] Care Team Providers Name Role Phone Toribio Charles MD Primary Care Provider Unavailable Encounter Details Date Type Department Care Team Description 04/16/2005 Results Only [facility] - Carlo Tejada MD conversion [address] [place] [phone] Social History Tobacco Use Types Packs/Day Years Used Date Never Assessed Sex Assigned at Date Recorded Not on file documented as of this encounter Plan of Treatment Not on filedocumented as of this encounter Procedures Procedure Name Priority Date/Time Associated Diagnosis Comme nts SURGICAL PATHOLOGY Routine 04/16/2005 0:00 EDT Re sults for this procedure are i n the results section. documented in this encounter Results SURGICAL PATHOLOGY (04/16/2005 0:00 EDT) Pathology Report: SURGICAL PATHOLOGY REPORT ADRI DAVIS Reports generated via electronic interface contain chelsi ginal data; LAB however they are lacking the format of the original re port. Caution should be taken when reading/interpreting unfo rmatted reports. Name: ? JODY LAI ? Accession #: ? [id number] ? : ? 1940 (Age: 64) ??F ? Collect Date: ? 04/16/2005 ? Location: ? [facility] ? Receive Date: ? 005 ? Provider: YONY PENA MD Copy to: TORIBIO CHARLES MD ? Final Pathologic Diagnosis: ? Colon, cecum, polypectomy: - Fragments of tubular adenoma. ??See comment. Comment: ? Deeper sections have been examined. ??(Brett loomis)/[facility] Document reviewed and electronically signed by: MANJINDER BULL MD Report ??Date: 04/19/2005 11:59 By the signature above, the attending physician certif ies that he/she has personally conducted a gross and/or microscopic examin ation of the described specimens and rendered or confirmed the above diagnosi s. Specimen(s) Received: ? Polyp on cecum Clinical History: ? Screening; cecal polyp (2 mm) Gross Description: ? Received in Hollande' s fixative labelled Lai and polyp on cecum are two fragments of soft ti ssue which measure 0.4 x 0.2 x 0.1 cm and 0.3 x 0.2 x 0.1 cm. ??The specimens are submitted entirely in on e cassette. ??(Brett Armijo)/[facility] End of Report Specimen Performing Organization Address City/State/ZIP Code Phon e Number [facility] [address] [place] [address] SERVICES [facility] [address] [place] [address] documented in this encounter Visit Diagnoses Not on filedocumented in this encounter Care Teams Pension Consultant Relationship Specialty Start Date End Date Toribio Charles MD PCP - General 05/10/10 documented as of this encounter
[2022-06-07 12:23] LABS: Abs Immature Grans 0.01 10^3/uL (0.0-0.06); Absolute Basophil Count 0.03 10^3/uL (0.0-0.2); Absolute Eosinophil Count 0.08 10^3/uL (0.0-0.7); Absolute Neutrophil Count 2.64 10^3/uL (1.2-6.7); Basophils % 0.7; ESR 4 mm/hr (0-30); Eosinophils % 1.9; HCT 34.1 % (36.0-46.0); HGB 11.4 g/dL (11.2-15.7); Immature Grans % 0.2; Lymphocytes % 25.8; MCH 31.1 pg (27.0-33.0); MCHC 33.4 % (32.0-36.0); MCV 93 fL (80-95); MPV 11.4 fL (8.0-11.0); Monocytes % 9.4; Platelet Count 209 10^3/uL (130-400); RBC 3.66 10^6/uL (3.93-5.22); RDW 13.2 % (11.7-14.6); RDW-SD 43.9 fL; WBC 4.26 10^3/uL (4.4-10.8)
[2022-06-07 12:31] LABS: ALT 28 U/L (14-59); AST 24 U/L (15-37); Albumin 3.8 g/dL (3.4-5.0); Alkaline Phosphatase 45 U/L (46-116); Anion Gap 4.6 mmol/L (3-11); BUN 32 mg/dL (7-18); Bilirubin, Total 0.5 mg/dL (0.2-1.0); C-Reactive Protein 0.05 mg/dL (0.0-0.3); CO2 30.4 mmol/L (21.0-32.0); CREATININE 0.7 mg/dL (0.55-1.02); Calcium 9.5 mg/dL (8.5-10.1); Chloride 102 mmol/L (98-107); Estimated GFR 87.37 (mL/min/1.73m2); Glucose 87 mg/dL (74-106); Potassium 4.3 mmol/L (3.5-5.1); Sodium 137 mmol/L (136-145); Total Protein 7.2 g/dL (6.4-8.2)
== END 2022-06-07 01:14 | disposition home or self-care (01) ==
LOC: LOS 01:13
PROVIDERS: PCP Family Medicine; Visit Provider Internal Medicine
DX: Z79.899 Other long term (current) drug therapy (principal); M33.90 Dermatopolymyositis, unspecified, organ involvement unspecified
CPT/HCPCS: 36415; 80053; 85652; 85025; 86140

== ENCOUNTER 2022-08-29 08:58 | Outpatient (CLI) | payer MEDICARE, SELFPAY ==
--- NOTE | 2022-08-29 08:45 | RT.EKG_ITS ---
APPROVED REPORT Exam: Resting ECG Reason for Exam: CAD Patient Location: O HR:58 bpm ECG Measurements Heart Rate 58 AXIS FL 206 P 129 QRSd 86 QRS 14 QT 404 T 62 QTc 397 Conclusion Sinus rhythm...normal P axis, V-rate 50- 99 Normal Electrocardiogram
== END 2022-08-29 08:59 | disposition home or self-care (01) ==
LOC: DI.CARD 08:59
PROVIDERS: PCP Family Medicine; Visit Provider Internal Medicine Cardiovascular Disease
DX: I25.10 Atherosclerotic heart disease of native coronary artery without angina pectoris (principal)
CPT/HCPCS: 93010

== ENCOUNTER → 2022-08-29 13:44 | Outpatient (BNVA) | payer MEDICARE, SELFPAY | PROVIDERS: PCP Family Medicine; Referring Provider Family Medicine; Visit Provider Internal Medicine Cardiovascular Disease | DX: I25.10 Atherosclerotic heart disease of native coronary artery without angina pectoris (principal); I10 Essential (primary) hypertension; R06.09 Other forms of dyspnea; E66.9 Obesity, unspecified; G47.33 Obstructive sleep apnea (adult) (pediatric); Z99.89 Dependence on other enabling machines and devices | CPT/HCPCS: 93005; 99203 ==

== ENCOUNTER 2022-09-16 03:12 | Outpatient (CLI) | payer MEDICARE, SELFPAY ==
[2022-09-16 12:25] LABS: ESR 5 mm/hr (0-30)
[2022-09-16 12:26] LABS: Abs Immature Grans 0.01 10^3/uL (0.0-0.06); Absolute Basophil Count 0.02 10^3/uL (0.0-0.2); Absolute Eosinophil Count 0.09 10^3/uL (0.0-0.7); Absolute Lymphocyte Count 1.01 10^3/uL (1.2-3.4); Absolute Monocyte Count 0.25 10^3/uL (0.1-0.8); Absolute Neutrophil Count 2.02 10^3/uL (1.2-6.7); Basophils % 0.6; Eosinophils % 2.6; HCT 32.9 % (36.0-46.0); HGB 11.1 g/dL (11.2-15.7); Immature Grans % 0.3; Lymphocytes % 29.7; MCH 31.4 pg (27.0-33.0); MCHC 33.7 % (32.0-36.0); MCV 93 fL (80-95); MPV 11.7 fL (8.0-11.0); Monocytes % 7.4; Neutrophils % 59.4; Platelet Count 193 10^3/uL (130-400); RBC 3.54 10^6/uL (3.93-5.22); RDW 13.4 % (11.7-14.6); RDW-SD 44.6 fL
[2022-09-16 12:48] LABS: ALT 32 U/L (14-59); AST 27 U/L (15-37); Albumin 4.2 g/dL (3.4-5.0); Alkaline Phosphatase 50 U/L (46-116); BUN 19 mg/dL (7-18); Bilirubin, Total 0.5 mg/dL (0.2-1.0); CREATININE 0.7 mg/dL (0.55-1.02); Calcium 9.8 mg/dL (8.5-10.1); Chloride 105 mmol/L (98-107); Estimated GFR 87.37 (mL/min/1.73m2); Glucose 109 mg/dL (74-106); Potassium 4.4 mmol/L (3.5-5.1); Sodium 142 mmol/L (136-145)
[2022-09-16 12:55] LABS: C-Reactive Protein < 0.05 mg/dL (0.0-0.3)
== END 2022-09-16 03:13 | disposition home or self-care (01) ==
LOC: LOS 03:12
PROVIDERS: PCP Family Medicine; Visit Provider Internal Medicine
DX: M33.90 Dermatopolymyositis, unspecified, organ involvement unspecified (principal); Z79.899 Other long term (current) drug therapy
CPT/HCPCS: 36415; 80053; 85652; 85025; 86140

== ENCOUNTER 2022-11-20 02:39 | Outpatient (CLI) | payer MEDICARE, SELFPAY ==
[2022-11-20 14:22] LABS: Absolute Basophil Count 0.02 10^3/uL (0.0-0.2); Absolute Eosinophil Count 0.08 10^3/uL (0.0-0.7); Absolute Lymphocyte Count 1.39 10^3/uL (1.2-3.4); Absolute Monocyte Count 0.34 10^3/uL (0.1-0.8); Basophils % 0.4; Eosinophils % 1.8; HCT 35.2 % (36.0-46.0); HGB 11.3 g/dL (11.2-15.7); Lymphocytes % 30.7; MCH 29.3 pg (27.0-33.0); MCHC 32.1 % (32.0-36.0); MCV 91 fL (80-95); Monocytes % 7.5; Neutrophils % 59.6; Platelet Count 191 10^3/uL (130-400); RBC 3.86 10^6/uL (3.93-5.22); RDW 12.5 % (11.7-14.6); RDW-SD 41.5 fL; Reticulocyte 1.4 % (0.5-2.4); WBC 4.53 10^3/uL (4.4-10.8)
[2022-11-20 14:37] LABS: ESR 4 mm/hr (0-30)
[2022-11-20 15:18] LABS: Iron 58 ug/dL (50-170); Total Iron Binding Capacity 302 ug/dL (250-450); Transferrin Sat 19 % (15-50)
[2022-11-20 15:31] LABS: ALT 25 U/L (14-59); AST 19 U/L (15-37); Alkaline Phosphatase 51 U/L (46-116); BUN 22 mg/dL (7-18); Bilirubin, Total 0.4 mg/dL (0.2-1.0); CREATININE 0.7 mg/dL (0.55-1.02); Calcium 9.5 mg/dL (8.5-10.1); Chloride 105 mmol/L (98-107); Estimated GFR 87.37 (mL/min/1.73m2); Ferritin 82 ng/mL (8-252); Glucose 101 mg/dL (74-106); Potassium 4.3 mmol/L (3.5-5.1); Sodium 140 mmol/L (136-145); Total Protein 6.9 g/dL (6.4-8.2)
[2022-11-20 18:55] LABS: Creatine Kinase 200 U/L (26-192)
[2022-11-20 18:57] LABS: C-Reactive Protein < 0.05 mg/dL (0.0-0.3)
[2022-11-21 10:33] LABS: Haptoglobin 82 mg/dL (32-197)
== END 2022-11-20 02:40 | disposition home or self-care (01) ==
LOC: LBO 02:39
PROVIDERS: PCP Family Medicine; Visit Provider Internal Medicine
DX: M33.90 Dermatopolymyositis, unspecified, organ involvement unspecified (principal); Z79.899 Other long term (current) drug therapy; R06.02 Shortness of breath; M35.3 Polymyalgia rheumatica; D50.8 Other iron deficiency anemias
CPT/HCPCS: 36415; 80053; 82550; 85652; 82728; 83010; 83540; 83550; 85025; 85045; 86140

== ENCOUNTER 2022-12-19 12:19 | Outpatient (CLI) | payer MEDICARE, SELFPAY ==
--- NOTE | 2022-12-19 14:39 | DI.RAD_ITS ---
Exam(s) XR SHOULDER RT COMPLETE 2+V EXAM: XR SHOULDER RT COMPLETE 2+V CLINICAL HISTORY: shoulder pain, limited ROM,M25.511. TECHNIQUE: 2D digital imaging was performed of the right shoulder. Five images were obtained. AP, Grashey, Y-view and axillary views were obtained. COMPARISON: No exams were available for comparison FINDINGS: BONES: No acute fracture is present. No bony destructive lesion is seen. JOINTS: No dislocation present. There are degenerative changes of the shoulder with hypertrophic jalloh ges seen at the acromioclavicular joint. The glenohumeral joint is well maintained. SOFT TISSUE: There is calcification adjacent to the greater tuberosity most consistent with calcific tendinitis. IMPRESSION: Degenerative changes of the shoulder. DATA REPOSITORY: RADIATION DOSE DELIVERED:
== END 2022-12-19 12:39 ==
LOC: DI 12:19
PROVIDERS: PCP Family Medicine; Visit Provider Nurse Practitioner Family
DX: M25.511 Pain in right shoulder (principal); M75.31 Calcific tendinitis of right shoulder; M25.611 Stiffness of right shoulder, not elsewhere classified
CPT/HCPCS: 73030

== ENCOUNTER → 2023-02-13 10:53 | Outpatient (BNVA) | payer MEDICARE, SELFPAY | PROVIDERS: PCP Family Medicine; Referring Provider Family Medicine; Visit Provider Internal Medicine Cardiovascular Disease | DX: I25.10 Atherosclerotic heart disease of native coronary artery without angina pectoris (principal); I10 Essential (primary) hypertension | CPT/HCPCS: 99213 ==

== ENCOUNTER 2023-03-06 03:13 | Outpatient (CLI) | payer MEDICARE, SELFPAY ==
[2023-03-06 13:37] LABS: ALT 30 U/L (14-59); AST 23 U/L (15-37); Alkaline Phosphatase 65 U/L (46-116); Anion Gap 6.9 mmol/L (3-11); BUN 19 mg/dL (7-18); Bilirubin, Total 0.5 mg/dL (0.2-1.0); CO2 28.1 mmol/L (21.0-32.0); CREATININE 0.7 mg/dL (0.55-1.02); Calcium 9.7 mg/dL (8.5-10.1); Chloride 105 mmol/L (98-107); Estimated GFR 87.37 (mL/min/1.73m2); Glucose 111 mg/dL (74-106); Potassium 4.2 mmol/L (3.5-5.1); Sodium 140 mmol/L (136-145); Total Protein 7.3 g/dL (6.4-8.2)
== END 2023-03-06 03:14 | disposition home or self-care (01) ==
LOC: LBO 03:13
PROVIDERS: PCP Family Medicine; Visit Provider Internal Medicine
DX: M33.90 Dermatopolymyositis, unspecified, organ involvement unspecified (principal); Z79.899 Other long term (current) drug therapy; Z92.241 Personal history of systemic steroid therapy
CPT/HCPCS: 36415; 80053

== ENCOUNTER 2023-03-12 10:06 | Outpatient (CLI) | payer MEDICARE, SELFPAY ==
[2023-03-12 12:33] LABS: Abs Immature Grans 0.01 10^3/uL (0.0-0.06); Absolute Basophil Count 0.03 10^3/uL (0.0-0.2); Absolute Eosinophil Count 0.14 10^3/uL (0.0-0.7); Absolute Lymphocyte Count 1.33 10^3/uL (1.2-3.4); Absolute Monocyte Count 0.37 10^3/uL (0.1-0.8); Absolute Neutrophil Count 3.12 10^3/uL (1.2-6.7); Basophils % 0.6; Eosinophils % 2.8; HCT 35.8 % (36.0-46.0); HGB 12.1 g/dL (11.2-15.7); Immature Grans % 0.2; Lymphocytes % 26.6; MCH 30.7 pg (27.0-33.0); MCHC 33.8 % (32.0-36.0); MCV 91 fL (80-95); MPV 11.1 fL (8.0-11.0); Monocytes % 7.4; Neutrophils % 62.4; Platelet Count 253 10^3/uL (130-400); RBC 3.94 10^6/uL (3.93-5.22); RDW 12.7 % (11.7-14.6); RDW-SD 41.3 fL
[2023-03-12 13:37] LABS: Hemoglobin A1C 5.4 % (<5.7)
== END 2023-03-12 10:07 | disposition home or self-care (01) ==
LOC: LOS 10:06
PROVIDERS: PCP Family Medicine; Visit Provider Family Medicine
DX: E11.51 Type 2 diabetes mellitus with diabetic peripheral angiopathy without gangrene (principal); D64.9 Anemia, unspecified
CPT/HCPCS: 36415; 83036; 85025

== ENCOUNTER 2023-03-26 00:31 | Outpatient (CLI) | payer MEDICARE, SELFPAY ==
--- NOTE | 2023-03-26 12:45 | DI.MAMMO_ITS ---
Exam(s) MAMMO SCREENING EXAM: MAMMO SCREENING CLINICAL HISTORY: screening,z12.39,family h/o breast ca TECHNIQUE: Bilateral full field digital CC and MLO mammographic images were obtained with 3D tomosyn thesis and utilizing computer aided detection (CAD). COMPARISON: Available for comparison. FINDINGS: Masses/Architectural Distortion: There is increased prominence of the area of asymmetric breast tissu e in the medial right breast on the craniocaudad view compared to the prior examination. Microcalcifications: No suspicious pleomorphic-type are seen. Skin Thickening/Nipple Retraction: None. IMPRESSION: 1. Increased prominence of the area of asymmetric breast tissue in the posterior medial right breast on the craniocaudad view. 2. This area should be further evaluated with a spot compression view. Ultrasound may be indicated a t that time. BI-RADS Category 0 - Assessment Incomplete: Need additional imaging evaluation Breast Density - Category B - Scattered areas of fibroglandular density Breast density category C or D implies that the patient has dense breast tissue. Dense breast tissue is very common and is not abnormal but dense breast tissue can make it harder to find cancer on a ma mmogram. Also, dense breast tissue may increase their breast cancer risk. This information about the result of the mammogram report was provided to the patient to raise their awareness. Use this report when you speak with the patient about their risks for breast cancer, which includes their family hist ory. At that time, you may recommend for more screening tests (Ultrasound or MRI) as they might be us eful based on their risk. A negative radiographic report should not delay biopsy if a dominant or clinically suspicious mass is present. Up to ten percent of cancers are not identified on mammography. A negative report may reinforce clinical impression. Adenosis and dense breasts may obscure an underlying neoplasm. False positive reports average 6 to 10%. Patient will receive a letter notifying them of these results.
== END 2023-03-26 00:51 ==
LOC: DI 00:31
PROVIDERS: PCP Family Medicine; Visit Provider Family Medicine
DX: Z12.31 Encounter for screening mammogram for malignant neoplasm of breast (principal); Z80.3 Family history of malignant neoplasm of breast
CPT/HCPCS: 77063; 77067

== ENCOUNTER 2023-03-31 01:10 | Outpatient (CLI) | payer MEDICARE, SELFPAY ==
--- NOTE | 2023-03-31 | DI.US_ITS ---
Exam(s) MG MAMMO SCREEN CALL BACK UNI US BREAST RT COMPLETE EXAM: MG MAMMO SCREEN CALL BACK UNI CLINICAL HISTORY: F/U MAMMO, ASYMMETRIC BREAST TISSUE RT BREAST. TECHNIQUE: Craniocaudal and mediolateral oblique spot compression digital Mammography views of the r ight breast with Tomosynthesis and right breast ultrasound. COMPARISON: 2013 through 2016 FINDINGS: Mammography/Tomosynthesis: Masses/Architectural Distortion: None seen. No change in appearance of a islands of dense tissue in the upper outer and lower inner quadrants. Microcalcifictions: No suspicious pleomorphic-type are seen. Skin Thickening/Nipple Retraction: None. Right breast US: Echotexture: Normal appearance of the glandular tissue. Shadowing: No suspicious foci. Cyst: None. Solid lesions: None seen. Ductal dilation: None. IMPRESSION: 1. No evidence of malignancy is noted. 2. Unless there is more urgent need, follow-up screening mammography is recommended, as per [employer] guidelines. 3. The findings were discussed with the patient on the date of the examination. BI-RADS Category 1 - Negative Breast Density - Category B - Scattered areas of fibroglandular density A negative radiographic report should not delay biopsy if a dominant or clinically suspicious mass is present. Up to ten percent of cancers are not identified on mammography. A negative report may reinforce clinical impression. Adenosis and dense breasts may obscure an underlying neoplasm. False positive reports average 6 to 10%. Patient will receive a letter notifying them of these results.
== END 2023-03-31 01:30 ==
LOC: DI 01:10
PROVIDERS: PCP Family Medicine; Visit Provider Family Medicine
DX: R92.8 Other abnormal and inconclusive findings on diagnostic imaging of breast (principal); Z12.31 Encounter for screening mammogram for malignant neoplasm of breast
CPT/HCPCS: 76642; 77063; 77067

== ENCOUNTER → 2024-02-12 10:48 | Outpatient (BNVA) | payer MEDICARE, SELFPAY | PROVIDERS: PCP Family Medicine; Visit Provider Internal Medicine Cardiovascular Disease | DX: I25.10 Atherosclerotic heart disease of native coronary artery without angina pectoris (principal); I10 Essential (primary) hypertension | CPT/HCPCS: 99213 ==

== ENCOUNTER 2024-03-29 04:08 | Outpatient (CLI) | payer MEDICARE, SELFPAY ==
[2024-03-29 12:35] LABS: Anion Gap 5.5 mmol/L (3-11); BUN 20 mg/dL (7-18); CO2 31.5 mmol/L (21.0-32.0); CREATININE 0.7 mg/dL (0.55-1.02); Calcium 9.4 mg/dL (8.5-10.1); Calculated LDL 73 mg/dL (<100); Chloride 104 mmol/L (98-107); Cholesterol 162 mg/dL (<200); Estimated GFR 86.83 (mL/min/1.73m2); Glucose 96 mg/dL (74-106); HDL Cholesterol 74 mg/dL (40-60); Potassium 4.1 mmol/L (3.5-5.1); Sodium 141 mmol/L (136-145); Triglyceride 75 mg/dL (<150)
== END 2024-03-29 04:09 | disposition home or self-care (01) ==
LOC: LOS 04:09
PROVIDERS: PCP Family Medicine; Referring Provider Family Medicine; Visit Provider Family Medicine
DX: E87.1 Hypo-osmolality and hyponatremia (principal); E78.5 Hyperlipidemia, unspecified
CPT/HCPCS: 36415; 80048; 80061

== ENCOUNTER 2025-02-10 10:58 | Outpatient (CLI) | payer MEDICARE, SELFPAY ==
--- NOTE | 2025-02-10 10:45 | RT.EKG_ITS ---
APPROVED REPORT Exam: Resting ECG Reason for Exam: follow up ekg needed Patient Location: O HR:52 bpm ECG Measurements Heart Rate 52 AXIS VA 198 P 81 QRSd 85 QRS 3 QT 425 T 47 QTc 396 Conclusion Sinus rhythm...normal P axis, V-rate 50- 99 Normal Electrocardiogram
== END 2025-02-10 10:59 | disposition home or self-care (01) ==
LOC: DI.CARD 11:00
PROVIDERS: PCP Family Medicine; Visit Provider Internal Medicine Cardiovascular Disease
DX: R06.09 Other forms of dyspnea (principal); I25.10 Atherosclerotic heart disease of native coronary artery without angina pectoris
CPT/HCPCS: 93010

== ENCOUNTER → 2025-02-10 10:58 | Outpatient (BNVA) | payer MEDICARE, SELFPAY | PROVIDERS: PCP Family Medicine; Visit Provider Internal Medicine Cardiovascular Disease | DX: I25.10 Atherosclerotic heart disease of native coronary artery without angina pectoris (principal); I10 Essential (primary) hypertension | CPT/HCPCS: 99214; 93005 ==

== ENCOUNTER 2025-06-13 09:56 | Outpatient (CLI) | payer MEDICARE, SELFPAY ==
[2025-06-13 14:26] LABS: Potassium 5.0 mmol/L (3.5-5.1)
== END 2025-06-13 09:57 | disposition home or self-care (01) ==
LOC: LOS 09:57
PROVIDERS: PCP Family Medicine; Visit Provider Family Medicine
DX: I10 Essential (primary) hypertension (principal)
CPT/HCPCS: 36415; 84132

== ENCOUNTER 2025-07-28 14:09 | Outpatient (CLI) | payer MEDICARE, SELFPAY ==
[2025-07-28 16:15] LABS: Potassium 4.5 mmol/L (3.5-5.1)
== END 2025-07-28 14:10 | disposition home or self-care (01) ==
LOC: LOS 14:10
PROVIDERS: PCP Family Medicine; Visit Provider Family Medicine
DX: I10 Essential (primary) hypertension (principal)
CPT/HCPCS: 36415; 84132